=== PATIENT | male | born 1985 | race Caucasian/White ===

== ENCOUNTER 2022-08-18 14:01 | Emergency (ER) | payer OTHER, SELFPAY ==
[2022-08-18 14:11] VITALS: BP 130/110; BP 135/72; PULSE 85; PULSE 91; RESP 16; TEMP 36.9; O2SAT 97; O2SAT 98; BMI 21.6
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
[2022-08-18] MEDS: Diphth,Pertus(ACell),Tet Adult 0.5 ML SYRINGE IM (15:23)
== END 2022-08-18 16:10 | disposition left against medical advice (07) ==
PROVIDERS: Emergency Provider Emergency Medicine
DX: S01.01XA Laceration without foreign body of scalp, initial encounter (principal); V03.00XA Pedestrian on foot injured in collision with car, pick-up truck or van in nontraffic accident, initial encounter; Y93.89 Activity, other specified; Y92.414 Local residential or business street as the place of occurrence of the external cause; Y99.9 Unspecified external cause status
CPT/HCPCS: 12001; 90471; 90715; 99282; 99284

== ENCOUNTER 2025-06-26 17:26 | Inpatient (IN) | payer OTHER, SELFPAY ==
[2025-06-26] VITALS (10 sets, daily range): BP systolic 104–142; BP diastolic 60–100; PULSE 73–125; RESP 16–20; TEMP 37.9–39; O2SAT 95–97; BMI 19.5
--- NOTE | ~2025-06-26 | XR_ITS ---
CLINICAL HISTORY: infection Left tibia fibula two views Comparison: None provided Findings: No acute fracture or dislocation identified. No acute focal bony abnormality. No radiopaque foreign body noted. Impression: No acute bony abnormality This document has been electronically signed by: Alfredito Gomez MD on 06/26/2025 20:00:43
--- NOTE | ~2025-06-26 | CT_ITS ---
CLINICAL HISTORY: evaluation for nec. fascitis CT left lower leg with contrast Comparison: None provided Findings: No acute fracture or dislocation identified. Diffuse circumferential subcutaneous edema. No soft tissue emphysema is identified. Intermuscular edema in posterior distal thigh. Heterogeneous calf musculature with intramuscular edema. Etiology of findings is indeterminate. No fluid collections are noted. No radiopaque foreign body noted. Impression: Indeterminate subcutaneous edema without fluid collection Indeterminate intramuscular and intermuscular edema and stranding Findings are nonspecific as above No fluid collection or bony abnormality This document has been electronically signed by: Alfredito Gomez MD on 06/26/2025 22:09:40
--- NOTE | ~2025-06-26 | CT_ITS ---
CLINICAL HISTORY: evaluation for deep space infection --- Additional Notes or Special Instructions: this needs to be STAT for reading CT left lower leg with contrast Comparison: Same date Findings: Subcutaneous edema is unchanged from prior study. Heterogeneous intramuscular edema noted in the calf. Findings are not further assessable by CT. Intramuscular abnormalities are best assessed with MRI. Deep enter edema and enhancement just above and below-knee. Tubular hypodensities along anterior margin of gastrocnemius muscle. Findings are not well assessed on CT. These may represent the deep venous thrombosis on prior ultrasound. Impression: No change from earlier study If intramuscular abnormality suspected, MRI would be needed This document has been electronically signed by: Alfredito Gomez MD on 06/26/2025 23:43:43
--- NOTE | ~2025-06-26 | US_ITS ---
CLINICAL HISTORY: leg swelling Left lower extremity venous duplex ultrasound Study was performed using color and spectral waveform analysis. Comparison: None Findings: Deep venous thrombosis common femoral, deep femoral and popliteal vein. Thrombus also noted multiple veins below the knee. Nonocclusive common femoral thrombus demonstrates movement. Subcutaneous edema throughout the calf. Impression: Deep venous thrombosis at multiple sites above No common femoral vein thrombus is mobile This document has been electronically signed by: Alfredito Gomez MD on 06/26/2025 20:01:42
--- NOTE | ~2025-06-26 | US_ITS ---
EXAMINATION: US KIDNEY BILATERAL HISTORY: electrolytic abnormalities TECHNIQUE: Real-time grayscale ultrasound imaging of the kidneys was performed and images were reviewed. COMPARISON: There are no prior studies available for comparison. FINDINGS: Right kidney: The right kidney measures 12.1 x 6.2 x 6.6 cm. Renal parenchymal echotexture and thickness are normal. There are no masses. There is no hydronephrosis or renal calculi. Left Kidney: The left kidney measures 11.2 x 6.8 x 6.1 cm. Renal parenchymal echotexture and thickness are normal. There are no masses. There is no hydronephrosis or renal calculi. US/US renal BI IMPRESSION: Unremarkable renal ultrasound. Electronically signed by: Modesto Saez MD 07/03/2025 06:58 AM EDT
--- NOTE | 2025-06-26 18:22 | ED_ITS ---
HPI - General Adult General Chief complaint: General Medical Stated complaint: Swelling/Cant walk Time Seen by Provider: 06/26/25 18:22 Source: patient and EMS Mode of arrival: ambulatory Limitations: no limitations History of Present Illness ED Provider: HPI narrative: This is a 40-year-old male with history of polysubstance use disorder, he injects cocaine and heroin, injects in his legs, he states his left leg became very swollen and has been painful, he states this is going on for the past 5 days and he has had it in the past, he reported history of similar in his right lower extremity in the past 2 weeks and that it resolved but this is something different. He has it does go to methadone clinic takes 85 mg of methadone has not gone for the past 4 days, has had worsening swelling and difficulty ambulating, he also tried to decompress the swelling in his leg and made few incisions of the skin himself. Related Data Home Medications ?Medication ?Instructions ?Recorded ?Confirmed methadone 10 mg/mL oral 85 mg PO DAILY 06/26/2503/17 concentrate (Methadone Intensol) Previous Rx's ?Medication ?Instructions ?Recorded cephalexin 500 mg capsule 500 mg PO Q6H 7 days #28 cap s 08/18/22 Allergies Allergy/AdvReac Type Severity Reaction Status Date / Time sulfamethoxazole (From Allergy Unknown Blister Verified 06/26/25 17:59 Bactrim) trimethoprim (From Bactrim) Allergy Unknown Blister Verified 06/26/25 17:59 Review of Systems 2 Constitutional: Constitutional: Reports as per [facility] Social History Social History Smoked in Last 30 Days: No Use of substances other than those prescribed or required for medical reasons: Yes Substance Use Type: IV Drugs Substance Use Frequency: Chronic Longstanding Advance Directives: No Advance Directives Information Provided: No Physical Exam ED Vital Signs: Vital Signs - 24 hr 06/26/25 17:50 06/26/25 18:54 06/26/25 19:14 Temperature 100.3 F 102.2 F H Pulse Rate 112 H 111 H 102 H Respiratory Rate 20 20 Blood Pressure 139/91 H 142/100 H 137/99 H Pulse Oximetry 97 96 Oxygen Delivery Method Room Air Room Air 06/26/25 19:29 06/26/25 19:44 06/26/25 19:58 Temperature 100.7 F H Pulse Rate 109 H 102 H 102 H Respiratory Rate 16 Blood Pressure 135/93 H 137/89 129/88 Pulse Oximetry 96 Oxygen Delivery Method Room Air 06/26/25 20:21 06/26/25 20:56 06/26/25 21:11 Temperature 100.7 F H Pulse Rate 73 74 Respiratory Rate Blood Pressure 110/67 104/60 Pulse Oximetry Oxygen Delivery Method BMI result Body Mass Index 19.5 Const Other: * Gen: ?Young man, alert oriented, somewhat unkempt * HEENT: PERRLA, EOMI, MMM, * Neck: Supple, no LAD * CV: RRR, no obvious murmurs appreciated * Resp: ?No wheezing rales rhonchi no stridor moving air well * Abd: ?Bowel sounds are present, no tenderness no rebound no rigidity * MSK: Decreased range of motion to left leg he is holding it in the proximally 75 degrees of flexion, edematous, distal pulses palpable posterior tibial and dorsalis pedis, tense calf compartment, thigh compartment soft, cachectic legs * Skin: Some mottling of the skin on the left leg with some chronic stasis changes, on the lateral aspect of the leg from a prior incisions that he has made there is minimal drainage, no subcutaneous emphysema. * Neuro: ?Alert and oriented x3, moving upper and lower extremities symmetrically, no obvious facial asymmetry noted Medications Administered Generic Name Dose Route Start Last Admin Trade Name Freq PRN Reason Stop Dose Admin Heparin Sodium/Sodium Chloride 25,000 unit in 250 mls @ 0 mls/hr 06/26/25 20:30 06/26/25 21:45 Heparin Sodium,Porcine/1/2ns IVCONT 14 units/kg/hr .Q0M NICKI 8.61 mls/hr Protocol Administration Per Protocol Discontinued Medications Generic Name Dose Route Start Last Admin Trade Name Freq PRN Reason Stop Dose Admin Heparin Sodium (Porcine) 4,900 unit 06/26/25 20:30 06/26/25 21:18 Heparin Sodium,Porcine 5,000 Unit/Ml Vial 80 unit/kg (4900 unit) 06/26/25 20:31 4,900 unit IVPUSH Administration ONCE ONE Hydromorphone HCl 1 mg 06/26/25 18:52 06/26/25 19:05 Hydromorphone Hcl 0.5 Mg/0.5 Ml Syringe IVPUSH 06/26/25 18:53 1 mg ONCE ONE Administration Protocol Vancomycin HCl 1,500 mg/ 500 mls @ 333.333 mls/hr 06/26/25 18:46 06/26/25 20:44 Sodium Chloride IV 06/26/25 20:15 Infused POSTOP ONE Infusion Piperacillin Sod/Tazobactam 50 mls @ 100 mls/hr 06/26/25 18:46 06/26/25 19:32 Sod 3.375 gm/ Sodium Chloride IV 06/26/25 19:15 Infused ONCE ONE Infusion Clindamycin Phosphate 900 mg in 50 mls @ 50 mls/hr 06/26/25 18:46 06/26/25 21:56 Cleocin IV 06/26/25 19:45 Infused ONCE ONE Infusion Sodium Chloride 1,845 mls @ 1,845 mls/hr 06/26/25 19:08 06/26/25 20:11 Ns 30 ml/kg infuse over 1 hr (1845 ml) 06/26/25 20:07 Infused IV Infusion .Q1H STA Acetaminophen 1,000 mg in 100 mls @ 400 mls/hr 06/26/25 19:24 06/26/25 19:58 Ofirmev IV 06/26/25 19:38 Infused ONCE ONE Infusion Iohexol 85 ml 06/26/25 22:40 06/26/25 22:41 Iohexol 350 Mg/Ml 100 Ml Infus..Btl IV 06/26/25 22:41 85 ml ONCE ONE Administration Methadone HCl 64 mg 06/26/25 19:45 06/26/25 20:26 Methadone Hcl 20 Mg/2 Ml Oral.Conc PO 06/26/25 19:46 64 mg ONCE ONE Administration Medical Decision Making Medical Decision Making MDM Narrative: 18:30 code sepsis activated, patient is presenting with fever, left lower extremity tense calf compartment, some skin mottling, no obvious subcutaneous emphysema, I have high concern that this is necrotizing fasciitis/pyomyositis, will obtain x-ray, primarily to evaluate for tissue gas, ultrasound to evaluate for presence of DVT as his leg exam can be consistent with phlegmasia cerulea dolens as well or along with soft tissue infection. Pyomyositis is another consideration, arterial insufficiency but his pulses are palpable. He is receiving triple antibiotic coverage including clindamycin for GABS coverage , patient has been updated, will treat his pain, and will keep NPO. 20:30, my established another IV on the patient, he has extensive venous clots we will start heparin. Spoke with Dr. Angela Dixon from vascular surgery he told me that with the infectious etiology he would not de- clot him, but we would recommend heparinization which is already getting done. And Dr. Sampson from surgery is made aware and stated that pt will be followed as a consult. sigm out pedning CT , hospitalist wanted to delay on admission pending CT. 11:38 PM 06/26/2025 (Dr. Theresa Cage, D.O.) CT does not show evidence of abscess. There is definite stranding and edema intramuscularly and subcutaneously. Admission orders placed by Dr. Mosher Differential Diagnosis Differential Diagnoses: The differential diagnosis associated with the presentation includes (See above) Admission/Observation Consideration of admission/observation: Escalation of care including admission/observation considered 2022 Emergency Medicine Coding Guide from [email or web address] on 06/26/2025 All calculations should be rechecked by clinician prior to use RESULT SUMMARY: 5 Estimated Level of Service Problems: High (5) Risk: High (5) Data: Extensive (5) NARRATIVE MDM: This patient's problem complexity is High as patient: may have an acute or chronic illness/injury posing a threat to life or body function. This patient's risk is High due to: overall presentation requiring evaluation for a potentially High-risk process. This patient's data complexity is Extensive due to: -multiple tests ordered/reviewed -independent historian used to support history -independent interpretation of imaging or EKG -discussion of management/testing with external professional INPUTS: Number and Complexity ?> 2 = 5: illness/injury w/life or body threat (b) Risk level ?> 4 = High Tests ordered ?> 3 = >= Tests results reviewed (excluding labs) ?> 3 = >= Prior external notes reviewed ?> 0 = 0 Assessment requiring and independent historian ?> 1 = Yes Independent interpretation of tests ?> 1 = Yes Discussed management/test interpretation w/external professional ?> 1 = Yes Consult Healthcare Provider Lab Data MDM Lab Attestation statement: I reviewed the patient's lab results. 06/26/25 21:08 06/26/25 18:22 Labs: Lab Results 06/26/25 06/26/25 06/26/25 Range/Units 18:22 18:23 18:25 WBC 26.3 H (4.8-10.8) X10*3/uL RBC 4.09 L (4.60-5.80) X10*6/uL Hgb 10.7 L (14.0-18.0) g/dl Hct 32.7 L (42.0-52.0) % MCV 80.0 (80.0-98.0) fL MCH 26.2 L (27.0-33.0) pg MCHC 32.7 (31.0-36.0) g/dl RDW 15.0 (11.0-16.0) % Plt Count 241 (160-400) X10*3/uL MPV 9.0 L (9.4-12.4) fL Immature Gran % (Auto) Cancelled Neut % (Auto) Cancelled Lymph % (Auto) Cancelled [place] % (Auto) Cancelled Eos % (Auto) Cancelled Baso % (Auto) Cancelled Lymph # (Auto) Cancelled [place] # (Auto) Cancelled Eos # (Auto) Cancelled Baso # (Auto) Cancelled Abs Immat Gran (auto) Cancelled Absolute Neuts (auto) Cancelled Absolute Nucleated RBC 0.000 (0.0-0.012) X10*3/uL Nucleated RBC % (auto) 0.0 (0.0-0.2) /100WBC Neutrophils % (Manual) 74 H (45-73) % Band Neutrophils % 17 H (3-5) % Lymphocytes % (Manual) 1 L (20-40) % Monocytes % (Manual) 7 (2-11) % Myelocytes % 1 % Abs Neuts (Manual) 23.9 H (2.0-8.3) X10*3/uL Lymphocytes # (Manual) 0.3 L (1.2-4.9) X10*3/uL Monocytes # (Manual) 1.8 H (0.1-1.2) X10*3/uL Myelocytes # 0.3 X10*/uL Platelet Estimate NORMAL (NORMAL) Plt Morphology Comment NORMAL RBC Morphology NOTED Polychromasia 1+ (0-2) /OIF Tear Drop Cells 1+ (0-2) /OIF Smear Tech's Comments MANUAL DIFF ESR 85 H (0-15) MM/HR PT 15.5 H (10.9-12.4) SEC INR 1.4 H (0.9-1.1) aPTT Heparin Protocol (53-77.9) SEC Sodium 128 L (135-145) mmol/L Potassium 4.8 (3.3-5.1) mmol/L Chloride 93 L (96-108) mmol/L Carbon Dioxide 25 (22-29) mmol/L Anion Gap 15 (12-20) BUN 13 (9-16) mg/dL Creatinine 0.60 (0.5-1.4) mg/dL Estim Creat Clear Calc 145.2 Estimated GFR > 60 Random Glucose 90 (60-115) mg/dL Lactic Acid 1.2 (0.5-2.0) mmol/L Calcium 8.6 (8.4-10.2) mg/dL Total Bilirubin 1.4 H (0.0-1.0) mg/dL AST 80 H (5-37) U/L ALT 48 H (0-40) U/L Alkaline Phosphatase 126 H (39-117) U/L C-Reactive Protein 30.08 H (< or = 0.50) mg/dL Total Protein 6.4 L (6.5-8.0) g/dL Albumin 2.9 L (3.5-5.0) g/dL Urine Color Urine Appearance Urine pH (5.0-9.0) Ur Specific [place] (1.005-1.025) Urine Protein (Neg-Trace) mg/dL Urine Glucose (UA) (Negative) mg/dL Urine Ketones (Negative) mg/dL Urine Blood (Negative) Urine Nitrite (Negative) Ur Leukocyte Esterase (Negative) Urine RBC (0-2) /HPF Urine WBC (0-5) /HPF Ur Squamous Epith Cells (0-2) /HPF Urine Bacteria (None Seen) Hyaline Casts (0-2) /LPF Urine Opiates Screen (Not Detect) Ur Buprenorphine Scrn (Not Detect) ng/mL Ur Oxycodone Screen (Not Detect) ng/mL Urine Methadone Screen (Not Detect) ng/mL Urine Fentanyl Screen (Not Detect) Ur Barbiturates Screen (Not Detect) Ur Phencyclidine Scrn (Not Detect) Ur Amphetamines Screen (Not Detect) U Benzodiazepines Scrn (Not Detect) Urine Cocaine Screen (Not Detect) U Marijuana (THC) Screen (Not Detect) Influenza Type A (PCR) NEGATIVE (Negative) Influenza Type B (PCR) NEGATIVE (Negative) RSV RNA Qual (PCR) NEGATIVE (Negative) SARS-CoV-2 RNA (RT-PCR) NEGATIVE (Negative) 06/26/25 06/26/25 Range/Units 18:56 21:08 WBC 23.7 H (4.8-10.8) X10*3/uL RBC 3.26 L D (4.60-5.80) X10*6/uL Hgb 8.6 L (14.0-18.0) g/dl Hct 25.9 L D (42.0-52.0) % MCV 79.4 L (80.0-98.0) fL MCH 26.4 L (27.0-33.0) pg MCHC 33.2 (31.0-36.0) g/dl RDW 14.9 (11.0-16.0) % Plt Count 197 (160-400) X10*3/uL MPV 9.1 L (9.4-12.4) fL Immature Gran % (Auto) Neut % (Auto) Lymph % (Auto) [place] % (Auto) Eos % (Auto) Baso % (Auto) Lymph # (Auto) [place] # (Auto) Eos # (Auto) Baso # (Auto) Abs Immat Gran (auto) Absolute Neuts (auto) Absolute Nucleated RBC 0.000 (0.0-0.012) X10*3/uL Nucleated RBC % (auto) 0.0 (0.0-0.2) /100WBC Neutrophils % (Manual) (45-73) % Band Neutrophils % (3-5) % Lymphocytes % (Manual) (20-40) % Monocytes % (Manual) (2-11) % Myelocytes % % Abs Neuts (Manual) (2.0-8.3) X10*3/uL Lymphocytes # (Manual) (1.2-4.9) X10*3/uL Monocytes # (Manual) (0.1-1.2) X10*3/uL Myelocytes # X10*/uL Platelet Estimate (NORMAL) Plt Morphology Comment RBC Morphology Polychromasia /OIF Tear Drop Cells /OIF Smear Tech's Comments ESR (0-15) MM/HR PT 16.7 H (10.9-12.4) SEC INR 1.5 H (0.9-1.1) aPTT Heparin Protocol 30.6 L (53-77.9) SEC Sodium (135-145) mmol/L Potassium (3.3-5.1) mmol/L Chloride (96-108) mmol/L Carbon Dioxide (22-29) mmol/L Anion Gap (12-20) BUN (9-16) mg/dL Creatinine (0.5-1.4) mg/dL Estim Creat Clear Calc Estimated GFR Random Glucose (60-115) mg/dL Lactic Acid (0.5-2.0) mmol/L Calcium (8.4-10.2) mg/dL Total Bilirubin (0.0-1.0) mg/dL AST (5-37) U/L ALT (0-40) U/L Alkaline Phosphatase (39-117) U/L C-Reactive Protein (< or = 0.50) mg/dL Total Protein (6.5-8.0) g/dL Albumin (3.5-5.0) g/dL Urine Color Dark Yellow Urine Appearance Clear Urine pH 7.0 (5.0-9.0) Ur Specific [place] 1.025 (1.005-1.025) Urine Protein 30 (1+) H (Neg-Trace) mg/dL Urine Glucose (UA) Negative (Negative) mg/dL Urine Ketones Negative (Negative) mg/dL Urine Blood Negative (Negative) Urine Nitrite Negative (Negative) Ur Leukocyte Esterase Trace H (Negative) Urine RBC 0-2 (0-2) /HPF Urine WBC 0-5 (0-5) /HPF Ur Squamous Epith Cells 0-2 (0-2) /HPF Urine Bacteria None Seen (None Seen) Hyaline Casts 0-2 (0-2) /LPF Urine Opiates Screen POSITIVE H (Not Detect) Ur Buprenorphine Scrn Not Detected (Not Detect) ng/mL Ur Oxycodone Screen Not Detected (Not Detect) ng/mL Urine Methadone Screen Positive H (Not Detect) ng/mL Urine Fentanyl Screen POSITIVE H (Not Detect) Ur Barbiturates Screen Not Detected (Not Detect) Ur Phencyclidine Scrn Not Detected (Not Detect) Ur Amphetamines Screen Not Detected (Not Detect) U Benzodiazepines Scrn Not Detected (Not Detect) Urine Cocaine Screen POSITIVE H (Not Detect) U Marijuana (THC) Screen Not Detected (Not Detect) Influenza Type A (PCR) (Negative) Influenza Type B (PCR) (Negative) RSV RNA Qual (PCR) (Negative) SARS-CoV-2 RNA (RT-PCR) (Negative) Radiology Impression Discussion of test interpretation with radiology: I have reviewed the radiologist's reading. Radiologist Impression: CT left lower leg with contrast Comparison: None provided Findings: No acute fracture or dislocation identified. Diffuse circumferential subcutaneous edema. No soft tissue emphysema is identified. Intermuscular edema in posterior distal thigh. Heterogeneous calf musculature with intramuscular edema. Etiology of findings is indeterminate. No fluid collections are noted. No radiopaque foreign body noted. Impression: Indeterminate subcutaneous edema without fluid collection Indeterminate intramuscular and intermuscular edema and stranding Findings are nonspecific as above No fluid collection or bony abnormality This document has been electronically signed by: Alfredito Gomez MD on 06/26/2025 22:09:40 Chronic Conditions Patient?s care impacted by: Other (IVDA) Social Determinants Patient?s care significantly limited by Social Determinants of Health including: Inadequate housing and Low income Critical Care Time Critical Care Time Critical Care Time: Yes Total Critical Care Time: 75 Attestation: Time is exclusive of separately billable procedures. Time includes: direct patient care, patient reassessment, coordination of patient care, interpretation of data (laboratory data, pulse oximetry, arterial blood gases and chest xrays), review of patient's medical records, medical consultation and documentation of patient care. Procedures excluded from critical care time: central intravenous line placement and electrocardiography. 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
[2025-06-26 18:30] LABS: Hematocrit 32.7 % (42.0-52.0); Hemoglobin 10.7 g/dl (14.0-18.0); Mean Corpuscular HGB Conc 32.7 g/dl (31.0-36.0); Mean Corpuscular Hemoglobin 26.2 pg (27.0-33.0); Mean Corpuscular Volume 80.0 fL (80.0-98.0); NRBC Abs Auto 0.000 X10*3/uL (0.0-0.012); NRBC Pct Auto 0.0 /100WBC (0.0-0.2); Platelet Count 241 X10*3/uL (160-400); Red Blood Count 4.09 X10*6/uL (4.60-5.80); White Blood Count 26.3 X10*3/uL (4.8-10.8)
[2025-06-26 18:38] LABS: INTERNATIONAL NORM RATIO 1.4 (0.9-1.1); Prothrombin Time 15.5 SEC (10.9-12.4)
[2025-06-26 18:44] LABS: Alanine Aminotransferase 48 U/L (0-40); Albumin Level 2.9 g/dL (3.5-5.0); Alkaline Phosphatase 126 U/L (39-117); Anion Gap 15 (12-20); Aspartate Amino Transferase 80 U/L (5-37); Blood Urea Nitrogen 13 mg/dL (9-16); Calcium 8.6 mg/dL (8.4-10.2); Carbon Dioxide 25 mmol/L (22-29); Chloride 93 mmol/L (96-108); Creatinine Clr Calc Pharmacy 145.2; Estimated Glomerular Filt Rate > 60; Potassium 4.8 mmol/L (3.3-5.1); Sodium 128 mmol/L (135-145); Total Protein 6.4 g/dL (6.5-8.0)
[2025-06-26 19:06] LABS: Resp Syncy Virus RNA Qual PCR NEGATIVE (Negative); SARS COV2 PCR INHOUSE NEGATIVE (Negative)
[2025-06-26] MEDS: 0.9 % Sodium Chloride 1,845 ML 1845 ML IV (19:11)
[2025-06-26 19:14] LABS: Appearance Urine Clear; Glucose Urine UA Negative (Negative); PH 7.0 (5.0-9.0); Specific Gravity - Urine 1.025 (1.005-1.025); UMIC TRIGGER UACC YES
[2025-06-26 19:17] LABS: Neutrophils Percent Manual 74 % (45-73)
[2025-06-26 19:21] LABS: Band Neutrophils Percent 17 % (3-5); Lymphocytes Absolute Manual 0.3 X10*3/uL (1.2-4.9); Lymphocytes Percent Manual 1 % (20-40); Monocytes Absolute Manual 1.8 X10*3/uL (0.1-1.2); Monocytes Percent Manual 7 % (2-11); Myelocytes Absolute 0.3 X10*/uL; Myelocytes Percent 1 %; Neutrophils Absolute Manual 23.9 X10*3/uL (2.0-8.3)
[2025-06-26 19:24] LABS: Polychromasia 1+ (0-2) /OIF; RBC Morphology NOTED; Tear Drop Cells 1+ (0-2) /OIF
--- NOTE | 2025-06-26 19:31 | PC.NURSE ---
verified methadone dose with Stacey at [facility] [phone] pt last dosed on 06/22/25 85mg @1135- faxed verification to pharmacy
--- NOTE | 2025-06-26 19:32 | HE.PHANOTE ---
METHADONE Pt last received 85 mg on 06/22/25 @ 1135 at [facility] ([phone]) per Stacey at clinic.
--- NOTE | 2025-06-26 19:58 | PC.NURSE ---
Pt arrives to dept via EMS w/ cc: leg swelling and unable to ambulate., Pt is A&O x4 independent with ADL's at baseline. Pt appears disheveled, and unkempt- pt reports that he is homeless, and lives in [place] with his dog. Pt craven hx of IVDA (on methadone last dose 85mg at [facility] on 06/22/25 @ 1135am) Pt reports swelling began about 5 days ago. today it is at it's worst preventing him from walking- left lower leg w/ 3+ pitting edema, multiple scabbed over areas, as well has open skin areas.Pt reports 10/10 pain at this time, he describes the pain as throbbing tenderness. On arrival to exam room pt found to be febrile at 100.3 orally with a HR of 110 20g IV access was established in right medial bicep- labs and cultures were obtained. pt UTD on tetanus- last dose 2021 MD Beck to bedside, formal sepsis alert initiated at 1856. Abx started Sepsis NS bolus infusing at this time Hydromorphone 1mg given for 10/10 leg pain Methadone verfication faxed to pharmacy- awaiting [facility] verification. Plan for US, XR, CT quality assurance monitor body in place, B/P q15m call hoff within reach plan of care ongoing
--- NOTE | 2025-06-26 20:17 | PC.NURSE ---
spoke with pharmacy- will send clinda
[2025-06-26] MEDS: methADONE HCl 20 MG/2 ML ORAL.CONC 64 MG PO (20:26)
[2025-06-26 21:17] LABS: Hematocrit 25.9 % (42.0-52.0); Hemoglobin 8.6 g/dl (14.0-18.0); Mean Corpuscular HGB Conc 33.2 g/dl (31.0-36.0); Mean Corpuscular Hemoglobin 26.4 pg (27.0-33.0); Mean Corpuscular Volume 79.4 fL (80.0-98.0); NRBC Abs Auto 0.000 X10*3/uL (0.0-0.012); NRBC Pct Auto 0.0 /100WBC (0.0-0.2); Platelet Count 197 X10*3/uL (160-400); Red Blood Count 3.26 X10*6/uL (4.60-5.80); White Blood Count 23.7 X10*3/uL (4.8-10.8)
[2025-06-26 21:23] LABS: INTERNATIONAL NORM RATIO 1.5 (0.9-1.1); Prothrombin Time 16.7 SEC (10.9-12.4)
[2025-06-26 21:26] LABS: PTT Heparin Drip 30.6 SEC (53-77.9)
[2025-06-26] MEDS: Heparin Sodium,Porcine/1/2NS 25,000 UNIT/250 ML IV.SOLN 8.61 UNIT IVCONT (21:45)
--- NOTE | 2025-06-26 21:57 | PC.NURSE ---
Rn started heparin drip with cosigning RN at bedside. No active bleeding on pt. Next scheduled PTT blood draw ordered for 0345. pt is resting comfortably in bed, no complaints at this moment.
--- NOTE | 2025-06-26 22:18 | P.HPHOSP_ITS ---
History of Present Illness Date of Service: 06/26/25 Chief Complaint: Leg pain This has a 40-year-old male with pertinent history of IV polysubstance use disorder who presents to the emergency department for evaluation of left leg pain and swelling. Patient admits he injects cocaine and heroin into his legs. He last used 3 days ago. Patient 1st noticed swelling of left leg 5 days prior to presentation. The swelling has been progressive and associated with pain. States he had a similar swelling of his right lower extremity about 2 weeks ago which self-resolved. He tried to decompress the swelling by making incisions to his left leg. Endorses associated fever and chills. No chest pain, palpitations, shortness of breath, abdominal pain, changes in urinary or bowel habits. In the emergency department, patient was found to be septic with leukocytosis 23.7. Venous duplex with DVT at multiple sites and CT with Review of Systems 2 Constitutional: Constitutional: Reports fatigue, Reports malaise and Reports weakness Cardiovascular: Cardiovascular: Reports no additional cardiovascular complaints Respiratory: Respiratory: Reports no additional respiratory complaints Gastrointestinal: Gastrointestinal: Reports no additional gastrointestinal complaints Genitourinary: Genitourinary: Reports no additional male genitourinary complaints Neurologic: Reports weakness Endocrine: Endocrine: Reports fatigue PMFSH Medical History Polysubstance use disorder Social History Smoked in Last 30 Days: No Use of substances other than those prescribed or required for medical reasons: Yes Substance Use Type: IV Drugs Substance Use Frequency: Chronic Longstanding Advance Directives: No Advance Directives Information Provided: No Meds Allergies Allergy/AdvReac Type Severity Reaction Status Date / Time sulfamethoxazole (From Allergy Unknown Blister Verified 06/26/25 17:59 Bactrim) trimethoprim (From Bactrim) Allergy Unknown Blister Verified 06/26/25 17:59 Active Medications: Current Medications Heparin Sodium (Porcine) (Heparin Sodium,Porcine 5,000 Unit/Ml Vial) 2,500 unit 40 unit/kg (2500 unit) IVPUSH PROTOCOL BOLUS PRN; Protocol PRN Reason: 40 unit/kg - Heparin Protocol Heparin Sodium (Porcine) (Heparin Sodium,Porcine 5,000 Unit/Ml Vial) 4,900 unit 80 unit/kg (4900 unit) IVPUSH PROTOCOL BOLUS PRN; Protocol PRN Reason: 80 unit/kg - Heparin Protocol Heparin Sodium/Sodium Chloride (Heparin Sodium,Porcine/1/2ns) 25,000 unit in 250 mls @ 0 mls/hr IVCONT .Q0M [facility]; Protocol Last Admin: 06/26/25 21:45 Dose: 14 units/kg/hr, 8.61 mls/hr Home Medications ?Medication ?Instructions ?Recorded ?Confirmed ?Last Taken ?Type methadone 10 mg/mL oral 85 mg PO DAILY 06/26/25 0803/1706/22/25 11:35 History concentrate (Methadone Intensol) Physical Exam 2 Vital Signs and Narrative: Vital Signs: Last Vital Signs Temp 100.7 F H 06/26/25 20:21 Pulse 74 06/26/25 21:11 Resp 16 06/26/25 19:58 BP 104/60 06/26/25 21:11 Pulse Ox 96 06/26/25 19:58 O2 Del Method Room Air 06/26/25 19:58 BMI result Body Mass Index 19.5 Const: Other: Middle-aged male lying in bed in no distress Neck supple, no JVD Regular rate and rhythm, S1-S2 heard Regular breath sounds bilaterally, no wheezing or crackles appreciated Abdomen soft nontender, no guarding, no rigidity Patient is awake, alert and oriented to self, place, time and person ; no focal motor deficit Psych: Normal mood Decreased left lower extremity movement due to pain; noted significant swelling and erythema ; track rea in extremity+ Results Labs 06/26/25 21:08 06/26/25 18:22 Labs: Laboratory Results - last 24 hr 06/26/25 06/26/25 06/26/25 18:22 18:23 18:25 MCV 80.0 MCH 26.2 L MCHC 32.7 RDW 15.0 Plt Count 241 MPV 9.0 L Immature Gran % (Auto) Cancelled Neut % (Auto) Cancelled Lymph % (Auto) Cancelled [place] % (Auto) Cancelled Eos % (Auto) Cancelled Baso % (Auto) Cancelled Lymph # (Auto) Cancelled [place] # (Auto) Cancelled Eos # (Auto) Cancelled Baso # (Auto) Cancelled Abs Immat Gran (auto) Cancelled Absolute Neuts (auto) Cancelled Absolute Nucleated RBC 0.000 Nucleated RBC % (auto) 0.0 Neutrophils % (Manual) 74 H Band Neutrophils % 17 H Lymphocytes % (Manual) 1 L Monocytes % (Manual) 7 Myelocytes % 1 Abs Neuts (Manual) 23.9 H Lymphocytes # (Manual) 0.3 L Monocytes # (Manual) 1.8 H Myelocytes # 0.3 Platelet Estimate NORMAL Plt Morphology Comment NORMAL RBC Morphology NOTED Polychromasia 1+ (0-2) Tear Drop Cells 1+ (0-2) Smear Tech's Comments MANUAL DIFF ESR 85 H PT 15.5 H INR 1.4 H aPTT Heparin Protocol Anion Gap 15 Estim Creat Clear Calc 145.2 Estimated GFR > 60 Random Glucose 90 Lactic Acid 1.2 Calcium 8.6 Total Bilirubin 1.4 H AST 80 H ALT 48 H Alkaline Phosphatase 126 H C-Reactive Protein 30.08 H Total Protein 6.4 L Albumin 2.9 L Urine Color Urine Appearance Urine pH Ur Specific [place] Urine Protein Urine Glucose (UA) Urine Ketones Urine Blood Urine Nitrite Ur Leukocyte Esterase Urine RBC Urine WBC Ur Squamous Epith Cells Urine Bacteria Hyaline Casts Influenza Type A (PCR) NEGATIVE Influenza Type B (PCR) NEGATIVE RSV RNA Qual (PCR) NEGATIVE SARS-CoV-2 RNA (RT-PCR) NEGATIVE 06/26/25 06/26/25 18:56 21:08 MCV 79.4 L MCH 26.4 L MCHC 33.2 RDW 14.9 Plt Count 197 MPV 9.1 L Immature Gran % (Auto) Neut % (Auto) Lymph % (Auto) [place] % (Auto) Eos % (Auto) Baso % (Auto) Lymph # (Auto) [place] # (Auto) Eos # (Auto) Baso # (Auto) Abs Immat Gran (auto) Absolute Neuts (auto) Absolute Nucleated RBC 0.000 Nucleated RBC % (auto) 0.0 Neutrophils % (Manual) Band Neutrophils % Lymphocytes % (Manual) Monocytes % (Manual) Myelocytes % Abs Neuts (Manual) Lymphocytes # (Manual) Monocytes # (Manual) Myelocytes # Platelet Estimate Plt Morphology Comment RBC Morphology Polychromasia Tear Drop Cells Smear Tech's Comments ESR PT 16.7 H INR 1.5 H aPTT Heparin Protocol 30.6 L Anion Gap Estim Creat Clear Calc Estimated GFR Random Glucose Lactic Acid Calcium Total Bilirubin AST ALT Alkaline Phosphatase C-Reactive Protein Total Protein Albumin Urine Color Dark Yellow Urine Appearance Clear Urine pH 7.0 Ur Specific [place] 1.025 Urine Protein 30 (1+) H Urine Glucose (UA) Negative Urine Ketones Negative Urine Blood Negative Urine Nitrite Negative Ur Leukocyte Esterase Trace H Urine RBC 0-2 Urine WBC 0-5 Ur Squamous Epith Cells 0-2 Urine Bacteria None Seen Hyaline Casts 0-2 Influenza Type A (PCR) Influenza Type B (PCR) RSV RNA Qual (PCR) SARS-CoV-2 RNA (RT-PCR) Assessment and Plan (1) Sepsis: Status: Acute (2) DVT (deep venous thrombosis): Status: Acute Plan This has a 40-year-old male with pertinent history of IV polysubstance use disorder who presents to the emergency department for evaluation of left leg pain and swelling. #. Acute DVT of left lower extremity with superimposed cellulitis and sepsis: Will admit patient with IV heparin. Vascular surgery was consulted from the ER who recommended anticoagulation with heparin. Initiating empric IV antibiotics. Lactic acid and blood culture obtained. LRINEC score 9, General surgery consulted from the ER. Imaging with subcutaneous, intramuscular, intermuscular edema #. Polysubstance use disorder: Monitor for withdrawals. Consulted Addiction Team. UDS positive for opiates, fentanyl and cocaine. Patient is on methadone #. Microcytic anemia: Obtaining iron panel #. Hyponatremia, likely hypovolemic: Monitor with crystalloid resuscitation #. Elevated liver enzymes due to sepsis Med rec pending DVT prophylaxis: IV heparin Full code Admit as inpatient and will require two night minimum hospital stay for IV antibiotics, IV heparin (as above), which is not possible in a lesser acute setting. Quality Stroke Does the patient have a stroke diagnosis?: No VTE Prior VTE?: No VTE Risk Level:: Medical - moderate - high VTE Device Contraindication: Treatment Not Indicated VTE Drug Contraindication: N/A - Med Ordered
[2025-06-26 22:41] LABS: Cannabinoid Screen Urine Not Detected (Not Detect)
[2025-06-26] MEDS: iohexoL 350 MG/ML 100 ML INFUS..BTL 85 ML IV (22:41)
--- NOTE | 2025-06-26 22:42 | PHA.PROG ---
Admission Date/Time: June 26, 2025 22:17 Indication: Sepsos Weight in k.5 kg Serum Creatinine - Last 168 Hours 06/26/25 18:22 Creatinine 0.60 Estimated CrCl and GFR - Last 168 Hours 06/26/25 18:22 Estim Creat Clear Calc 145.2 Estimated GFR > 60 Vancomycin Loading Dose: 1500mg Current Vancomycin Dosing Regimen: 1,000 q8h Vancomycin Monitoring using AUC goal of 400 - 600 range with trough as surrogate marker: f571, predicted trough 17.3 Date and Time for next Vancomycin Level to be drawn: 06/27 @ 1700 Pharmacist Comments on Vancomycin Plan: Young pt with good renal function, treating aggressively and can slow dosages down once at steady state Vancomycin dosing will take advantage of [employer] as a clinical decision support tool that uses Bayesian modeling to calculate individual patient's pharmacokinetic parameters and forecast the patient's drug concentration time course with the target goal AUC 24 range of 400 - 600 mg/L/hr.
--- NOTE | 2025-06-26 22:59 | PC.NURSE ---
Addendum entered by Esperanza Carr LPN 06/26/25 23:10: * no contraband found during safety search w/[facility] security [employer] Original Note: pt consents to safety search at this time- calm cooperative and pleasant. pt belongings list completed
--- NOTE | 2025-06-27 02:31 | PC.NURSE ---
Admission report for pt complete; hot car charger made aware.
[2025-06-27 02:39] VITALS: BP 114/57; PULSE 82; RESP 14; O2SAT 96
--- NOTE | 2025-06-27 02:53 | PC.NURSE ---
Verbal report given to CHIOMA bragg.
--- NOTE | 2025-06-27 02:56 | PC.NURSE ---
this rn assumed care of pt, pt brought from ed main front at this time. pt has heparin drip at 14U/kg/hr running, dual RN check at this time. pt offers no complaints and is resting in stretcher.
[2025-06-27 03:42] VITALS: BP 101/67; PULSE 72; RESP 18; TEMP 36.7; O2SAT 96
--- NOTE | 2025-06-27 04:10 | PC.NURSE ---
phlebotomy at bedside, pt tough stick at this time, delay in PTT draw.
[2025-06-27 04:17] LABS: Hematocrit 27.0 % (42.0-52.0); Hemoglobin 8.9 g/dl (14.0-18.0); Mean Corpuscular HGB Conc 33.0 g/dl (31.0-36.0); Mean Corpuscular Hemoglobin 26.1 pg (27.0-33.0); Mean Corpuscular Volume 79.2 fL (80.0-98.0); NRBC Abs Auto 0.000 X10*3/uL (0.0-0.012); NRBC Pct Auto 0.0 /100WBC (0.0-0.2); Platelet Count 202 X10*3/uL (160-400); Red Blood Count 3.41 X10*6/uL (4.60-5.80); White Blood Count 19.9 X10*3/uL (4.8-10.8)
[2025-06-27 04:28] LABS: INTERNATIONAL NORM RATIO 1.4 (0.9-1.1); Prothrombin Time 15.6 SEC (10.9-12.4)
[2025-06-27 04:37] LABS: Anion Gap 10 (12-20); Blood Urea Nitrogen 14 mg/dL (9-16); Calcium 7.6 mg/dL (8.4-10.2); Carbon Dioxide 26 mmol/L (22-29); Chloride 102 mmol/L (96-108); Creatinine Clr Calc Pharmacy 142.8; Estimated Glomerular Filt Rate > 60; Iron 12 mcg/dL (45-160); Percent Iron Saturation 13 % (15-50); Potassium 3.6 mmol/L (3.3-5.1); Sodium 134 mmol/L (135-145); Total Iron Binding Capacity 96 mcg/dL (228-428); Unsaturated Iron Binding 84 ug/dL
[2025-06-27 04:45] LABS: PTT Heparin Drip 31.2 SEC (53-77.9)
--- NOTE | 2025-06-27 05:25 | PC.NURSE ---
clindamycin unavailable in the pyxis at this time, will contact pharmacy at 6am, provider aware
[2025-06-27] MEDS: 0.9 % Sodium Chloride Flush 3 ML SYRINGE IVFLUSH ×2 (07:20→16:03)
[2025-06-27 07:54] VITALS: RESP 15
[2025-06-27 07:55] VITALS: BP 113/73; PULSE 85; RESP 15; O2SAT 97
--- NOTE | 2025-06-27 07:57 | P.CONGS_ITS ---
History of Present Illness Consult details Consult date: 06/27/25 <AURY Baxter Last Filed: 06/27/25 08:23> Requesting physician: Mary Mosher <AURY Baxter Last Filed: 06/27/25 08:23> Narrative: 40 year old male with PMH of IV polysubstance use disorder who presents to the ED for evaluation of left leg pain and swelling. He reports this began 6 days ago. Patient admits to injecting cocaine and heroin into his legs, last use 3 days ago. The pain has been progressively getting worse and now he is unable to walk. He reports trying to reduce the swelling himself by making incisions to his left leg. He reports subjective fevers and chills. Work up in the ED included CBC, BMP, LFTs which was significant for a WBC count of 26.3, hyponatremia and mildly elevated LFTs. Left lower extremity US doppler and CT scans showed multiple DVTs in the LLE as well as diffuse circumferential subcutaneous edema without soft tissue emphysema or fluid collections noted. < Adenike Blanco PA-C Last Filed: 06/27/25 08:23> Review of Systems 2 ENT: Denies dizziness <AURY Baxter Last Filed: 06/27/25 08:23> Cardiovascular: Cardiovascular: Denies chest pain and Denies dyspnea < AURY Baxter Last Filed: 06/27/25 08:23> Respiratory: Respiratory: Denies dyspnea <AURY Baxter Last Filed: 06/27/25 08:23> Gastrointestinal: Gastrointestinal: Reports nausea and Denies vomiting < AURY Baxter Last Filed: 06/27/25 08:23> Integumentary/Breasts: Skin/Breast: Reports as per HPI <AURY Baxter Last Filed: 06/27/25 08:23> Neurologic: Denies dizziness <AURY Baxter Last Filed: 06/27/25 08:23> PMFSH Past Medical History Medical History: Medical History Polysubstance use disorder <Adenike Blanco PA-C - Last Filed: 06/27/25 08:23> Social History Social History: Social History Patient Tobacco Use Status: Current everyday Tobacco user Smoked in Last 30 Days: No Use of substances other than those prescribed or required for medical reasons: Yes Substance Use Type: IV Drugs Substance Use Frequency: Chronic Longstanding Advance Directives: No Advance Directives Information Provided: No Nutrition Risks: No Nutritional Risk <Adenike Blanco PA-C - Last Filed: 06/27/25 08:23> Meds Allergies/Adverse reactions: Allergies Allergy/AdvReac Type Severity Reaction Status Date / Time sulfamethoxazole (From Allergy Unknown Blister Verified 06/26/25 17:59 Bactrim) trimethoprim (From Bactrim) Allergy Unknown Blister Verified 06/26/25 17:59 <AURY Baxter Last Filed: 06/27/25 08:23> Active Medications: Current Medications Acetaminophen (Acetaminophen 325 Mg Tablet) 650 mg PO Q6H PRN PRN Reason: Pain, Mild 1-3,fever,headache Calcium Carbonate (Calcium Carbonate 750 Mg Tab.Chew) 750 mg PO Q4H PRN PRN Reason: Heartburn Heparin Sodium (Porcine) (Heparin Sodium,Porcine 5,000 Unit/Ml Vial) 2,500 unit 40 unit/kg (2500 unit) IVPUSH PROTOCOL BOLUS PRN; Protocol PRN Reason: 40 unit/kg - Heparin Protocol Heparin Sodium (Porcine) (Heparin Sodium,Porcine 5,000 Unit/Ml Vial) 4,900 unit 80 unit/kg (4900 unit) IVPUSH PROTOCOL BOLUS PRN; Protocol PRN Reason: 80 unit/kg - Heparin Protocol Last Admin: 06/27/25 04:51 Dose: 4,900 unit Hydromorphone HCl (Hydromorphone Hcl 1 Mg/Ml Syringe) 1 mg IVPUSH Q4H PRN; Protocol PRN Reason: Pain, Severe (Pain Scale 7-10) Last Admin: 06/27/25 07:54 Dose: 1 mg Heparin Sodium/Sodium Chloride (Heparin Sodium,Porcine/1/2ns) 25,000 unit in 250 mls @ 0 mls/hr IVCONT .Q0M [facility]; Protocol Last Titration: 06/27/25 04:52 Dose: 18 units/kg/hr, 11.07 mls/hr Vancomycin HCl 1,000 mg/ (Sodium Chloride) 270 mls @ 270 mls/hr IV Q8H [facility] Last Infusion: 06/27/25 03:43 Dose: Infused Piperacillin Sod/Tazobactam (Sod 4.5 gm/ Sodium Chloride) 100 mls @ 200 mls/hr IV Q6H [facility] Last Infusion: 06/27/25 07:50 Dose: Infused Clindamycin Phosphate (Cleocin) 900 mg in 50 mls @ 50 mls/hr IV Q8H [facility] Magnesium Hydroxide (Milk Of Magnesia 30 Ml Oral.Susp) 30 ml PO DAILY PRN PRN Reason: Constipation Melatonin (Melatonin 3 Mg Tablet) 6 mg PO BEDTIME PRN PRN Reason: Insomnia Ondansetron HCl (Ondansetron Hcl 4 Mg/2 Ml Vial) 4 mg IVPUSH Q8H PRN PRN Reason: Nausea and Vomiting Pharmacy Consult (Consult Rx Vancomycin Dosing) 1 each MISCELLANE DAILY PRN PRN Reason: Consult order Sodium Chloride (0.9 % Sodium Chloride Flush 3 Ml Syringe) [facility] Last Admin: 06/27/25 07:20 Dose: 3 ml <Adenike Blanco PA-C - Last Filed: 06/27/25 08:23> Home medications: Home Medications ?Medication ?Instructions ?Recorded ?Confirmed ?Last Taken ?Type methadone 10 mg/mL oral 85 mg PO DAILY 06/26/25 0803/1706/22/25 11:35 History concentrate (Methadone Intensol) <AURY Baxter Last Filed: 06/27/25 08:23> Physical Exam 2 Vital Signs: Vital Signs: Last Vital Signs Temp 98.0 F 06/27/25 03:42 Pulse 85 06/27/25 07:55 Resp 15 06/27/25 07:55 BP 113/73 06/27/25 07:55 Pulse Ox 97 06/27/25 07:55 O2 Del Method Room Air 06/27/25 07:55 BMI result Body Mass Index 19.5 <AURY Baxter Last Filed: 06/27/25 08:23> Const: General: no acute distress and alert <AURY Baxter Last Filed: 06/27/25 08:23> Nutritional Appearance: thin <AURY Baxter Last Filed: 06/27/25 08:23> Resp: Effort & Inspection: normal respiratory effort <AURY Baxter Last Filed: 06/27/25 08:23> Extrem: Other: left leg- very enlarged compared to right with pitting edema of entire lower leg, markedly tender throughout, no palpable fluid collections noted, mild diffuse erythema, multiple scarred areas consistent with injection sites right leg- mild edema of lower aspect, no erythema, multiple scarred areas <AURY Baxter Last Filed: 06/27/25 08:23> Results Labs Result diagrams: 06/27/25 04:10 06/27/25 04:10 <AURY Baxter Last Filed: 06/27/25 08:23> Labs: Abnormal lab results 06/26/25 06/26/25 06/26/25 Range/Units 18:22 18:23 18:25 WBC 26.3 H (4.8-10.8) X10*3/uL RBC 4.09 L (4.60-5.80) X10*6/uL Hgb 10.7 L (14.0-18.0) g/dl Hct 32.7 L (42.0-52.0) % MCV (80.0-98.0) fL MCH 26.2 L (27.0-33.0) pg MPV 9.0 L (9.4-12.4) fL Neutrophils % (Manual) 74 H (45-73) % Band Neutrophils % 17 H (3-5) % Lymphocytes % (Manual) 1 L (20-40) % Abs Neuts (Manual) 23.9 H (2.0-8.3) X10*3/uL Lymphocytes # (Manual) 0.3 L (1.2-4.9) X10*3/uL Monocytes # (Manual) 1.8 H (0.1-1.2) X10*3/uL ESR 85 H (0-15) MM/HR PT 15.5 H (10.9-12.4) SEC INR 1.4 H (0.9-1.1) aPTT Heparin Protocol (53-77.9) SEC Sodium 128 L (135-145) mmol/L Chloride 93 L (96-108) mmol/L Anion Gap (12-20) Random Glucose (60-115) mg/dL Calcium (8.4-10.2) mg/dL Iron (45-160) mcg/dL TIBC (228-428) mcg/dL % Saturation (15-50) % Total Bilirubin 1.4 H (0.0-1.0) mg/dL AST 80 H (5-37) U/L ALT 48 H (0-40) U/L Alkaline Phosphatase 126 H (39-117) U/L C-Reactive Protein 30.08 H (< or = 0.50) mg/dL Total Protein 6.4 L (6.5-8.0) g/dL Albumin 2.9 L (3.5-5.0) g/dL Urine Protein (Neg-Trace) mg/dL Ur Leukocyte Esterase (Negative) Urine Opiates Screen (Not Detect) Urine Methadone Screen (Not Detect) ng/mL Urine Fentanyl Screen (Not Detect) Urine Cocaine Screen (Not Detect) 06/26/25 06/26/25 06/27/25 Range/Units 18:56 21:08 04:10 WBC 23.7 H 19.9 H (4.8-10.8) X10*3/uL RBC 3.26 L D 3.41 L (4.60-5.80) X10*6/uL Hgb 8.6 L 8.9 L (14.0-18.0) g/dl Hct 25.9 L D 27.0 L (42.0-52.0) % MCV 79.4 L 79.2 L (80.0-98.0) fL MCH 26.4 L 26.1 L (27.0-33.0) pg MPV 9.1 L (9.4-12.4) fL Neutrophils % (Manual) (45-73) % Band Neutrophils % (3-5) % Lymphocytes % (Manual) (20-40) % Abs Neuts (Manual) (2.0-8.3) X10*3/uL Lymphocytes # (Manual) (1.2-4.9) X10*3/uL Monocytes # (Manual) (0.1-1.2) X10*3/uL ESR (0-15) MM/HR PT 16.7 H 15.6 H (10.9-12.4) SEC INR 1.5 H 1.4 H (0.9-1.1) aPTT Heparin Protocol 30.6 L 31.2 L (53-77.9) SEC Sodium 134 L (135-145) mmol/L Chloride (96-108) mmol/L Anion Gap 10 L (12-20) Random Glucose 141 H (60-115) mg/dL Calcium 7.6 L D (8.4-10.2) mg/dL Iron 12 L (45-160) mcg/dL TIBC 96 L (228-428) mcg/dL % Saturation 13 L (15-50) % Total Bilirubin (0.0-1.0) mg/dL AST (5-37) U/L ALT (0-40) U/L Alkaline Phosphatase (39-117) U/L C-Reactive Protein (< or = 0.50) mg/dL Total Protein (6.5-8.0) g/dL Albumin (3.5-5.0) g/dL Urine Protein 30 (1+) H (Neg-Trace) mg/dL Ur Leukocyte Esterase Trace H (Negative) Urine Opiates Screen POSITIVE H (Not Detect) Urine Methadone Screen Positive H (Not Detect) ng/mL Urine Fentanyl Screen POSITIVE H (Not Detect) Urine Cocaine Screen POSITIVE H (Not Detect) Short CBC 06/26/25 06/26/25 06/27/25 Range/Units 18:23 21:08 04:10 WBC 26.3 H 23.7 H 19.9 H (4.8-10.8) X10*3/uL Hgb 10.7 L 8.6 L 8.9 L (14.0-18.0) g/dl Hct 32.7 L 25.9 L D 27.0 L (42.0-52.0) % Plt Count 241 197 202 (160-400) X10*3/uL BMP 06/26/25 06/27/25 06/27/25 18:22 04:10 04:10 Sodium 128 L 134 L Potassium 4.8 3.6 D Chloride 93 L 102 Carbon Dioxide 25 26 BUN 13 14 Creatinine 0.60 Cancelled 0.61 Calcium 8.6 7.6 L D Liver Function 06/26/25 Range/Units 18:22 Total Bilirubin 1.4 H (0.0-1.0) mg/dL AST 80 H (5-37) U/L ALT 48 H (0-40) U/L Alkaline Phosphatase 126 H (39-117) U/L Albumin 2.9 L (3.5-5.0) g/dL Urine 06/26/25 Range/Units 18:56 Urine Color Dark Yellow Urine Appearance Clear Urine pH 7.0 (5.0-9.0) Ur Specific [place] 1.025 (1.005-1.025) Urine Protein 30 (1+) H (Neg-Trace) mg/dL Urine Glucose (UA) Negative (Negative) mg/dL All other labs normal. <Adenike Blanco PA-C - Last Filed: 06/27/25 08:23> Imaging Additional studies: imaging and labs reviewed <Adenike Blanco PA-C - Last Filed: 06/27/25 08:23> Assessment and Plan (1) Sepsis: Status: Acute <Adenike Blanco PA-C - Last Filed: 06/27/25 08:23> (2) DVT (deep venous thrombosis): Status: Acute <Adenike Blanco PA-C - Last Filed: 06/27/25 08:23> 40-year-old male with known IV drug abuse, admitted for left lower extremity swelling, and pain Imaging studies showed DVT There is note of soft tissue stranding of the subcutaneous layer consistent with cellulitis on CT No obvious palpable fluid collections No fluid collection seen on imaging Diffuse edema noted of the leg No signs of ischemic process No evidence of soft tissue necrotizing infection No I&D planned at this time IV antibiotics Vascular consult Leg elevation We will follow up Seen and examined independently <Masoud Sampson MD - Last Filed: 06/27/25 11:37> 40 year old male with PMH of IV polysubstance use who reports injecting in b/l LE who presents with pain and swelling of LLE found to have multiple DVTs of left leg and diffuse, extensive soft tissue stranding suggestive of cellulitis. On exam, he has significant edema however there are no palpable fluctuant collections and currently nothing to drain. WBC is improving. Cont IV abx, elevation of left lower extremity and vascular consult for DVTs. Will continue to follow. <Adenike Blanco PA-C - Last Filed: 06/27/25 08:23> Procedures Date of Service Date of Service: 06/27/25 <Adenike Blanco PA-C - Last Filed: 06/27/25 08:23> 06/27/25 <Masoud Sampson MD - Last Filed: 06/27/25 11:37>
[2025-06-27 09:04] LABS: MANUAL DIFF FLAG NO
--- NOTE | 2025-06-27 09:04 | PHA.MEDREC ---
Pharmacy Consult ? Medication Reconciliation Pharmacy has completed the medication reconciliation. Spoke with pt to confirm he is not on any medications.
[2025-06-27 09:16] LABS: Imm Gran Abs Auto 0.38 X10*3/uL (0.00-0.03); Imm Gran Pct Auto 1.9 % (0.0-0.4); Lymphocytes Absolute Auto 0.8 X10*3/uL (1.2-4.9)
--- NOTE | 2025-06-27 11:28 | HO.PM.IMPN ---
Subjective Subjective Date of Service: 06/27/25 Interval History: feels sick Physical Exam Exam: Exam: General: AO X 3, no acute distress, ill appearing Resp: CTA bilateral, no accessory muscles used CVS: S1,S2,RRR GI: soft, non tender, non distended Neuro: motor grossly intact, alert Psych: appropriate affect, appropriate insight LLE 4+ edema Vital Signs: Vital Signs: Last Vital Signs Temp 98.0 F 06/27/25 03:42 Pulse 85 06/27/25 07:55 Resp 15 06/27/25 07:55 BP 113/73 06/27/25 07:55 Pulse Ox 97 06/27/25 07:55 O2 Del Method Room Air 06/27/25 07:55 BMI result Body Mass Index 19.5 Objective Data Active Medications Acetaminophen (Acetaminophen 325 Mg Tablet) 650 mg PO Q6H PRN PRN Reason: Pain, Mild 1-3,fever,headache Calcium Carbonate (Calcium Carbonate 750 Mg Tab.Chew) 750 mg PO Q4H PRN PRN Reason: Heartburn Heparin Sodium (Porcine) (Heparin Sodium,Porcine 5,000 Unit/Ml Vial) 2,500 unit 40 unit/kg (2500 unit) IVPUSH PROTOCOL BOLUS PRN; Protocol PRN Reason: 40 unit/kg - Heparin Protocol Heparin Sodium (Porcine) (Heparin Sodium,Porcine 5,000 Unit/Ml Vial) 4,900 unit 80 unit/kg (4900 unit) IVPUSH PROTOCOL BOLUS PRN; Protocol PRN Reason: 80 unit/kg - Heparin Protocol Last Admin: 06/27/25 04:51 Dose: 4,900 unit Documented By: VICK Hydromorphone HCl (Hydromorphone Hcl 1 Mg/Ml Syringe) 1 mg IVPUSH Q4H PRN; Protocol PRN Reason: Pain, Severe (Pain Scale 7-10) Last Admin: 06/27/25 07:54 Dose: 1 mg Documented By: TYRA Heparin Sodium/Sodium Chloride (Heparin Sodium,Porcine/1/2ns) 25,000 unit in 250 mls @ 0 mls/hr IVCONT .Q0M [facility]; Protocol Last Titration: 06/27/25 04:52 Dose: 18 units/kg/hr, 11.07 mls/hr Documented By: VICK Co-signed By: MEG Vancomycin HCl 1,000 mg/ (Sodium Chloride) 270 mls @ 270 mls/hr IV Q8H [facility] Last Infusion: 06/27/25 03:43 Dose: Infused Documented By: HA Piperacillin Sod/Tazobactam (Sod 4.5 gm/ Sodium Chloride) 100 mls @ 200 mls/hr IV Q6H [facility] Last Infusion: 06/27/25 07:50 Dose: Infused Documented By: TYRA Clindamycin Phosphate (Cleocin) 900 mg in 50 mls @ 50 mls/hr IV Q8H [facility] Last Infusion: 06/27/25 09:10 Dose: Infused Documented By: TYRA Magnesium Hydroxide (Milk Of Magnesia 30 Ml Oral.Susp) 30 ml PO DAILY PRN PRN Reason: Constipation Melatonin (Melatonin 3 Mg Tablet) 6 mg PO BEDTIME PRN PRN Reason: Insomnia Ondansetron HCl (Ondansetron Hcl 4 Mg/2 Ml Vial) 4 mg IVPUSH Q8H PRN PRN Reason: Nausea and Vomiting Pharmacy Consult (Consult Rx Vancomycin Dosing) 1 each MISCELLANE DAILY PRN PRN Reason: Consult order Sodium Chloride (0.9 % Sodium Chloride Flush 3 Ml Syringe) 3 ml IVFLUSH QSHIFT [facility] Last Admin: 06/27/25 07:20 Dose: 3 ml Documented By: MARVIN Labs 06/27/25 04:10 06/27/25 04:10 Labs: Laboratory Results - last 24 hr 06/26/25 06/26/25 06/26/25 18:22 18:23 18:25 MCV 80.0 MCH 26.2 L MCHC 32.7 RDW 15.0 Plt Count 241 MPV 9.0 L Immature Gran % (Auto) Cancelled Neut % (Auto) Cancelled Lymph % (Auto) Cancelled [place] % (Auto) Cancelled Eos % (Auto) Cancelled Baso % (Auto) Cancelled Lymph # (Auto) Cancelled [place] # (Auto) Cancelled Eos # (Auto) Cancelled Baso # (Auto) Cancelled Abs Immat Gran (auto) Cancelled Absolute Neuts (auto) Cancelled Absolute Nucleated RBC 0.000 Nucleated RBC % (auto) 0.0 Neutrophils % (Manual) 74 H Band Neutrophils % 17 H Lymphocytes % (Manual) 1 L Monocytes % (Manual) 7 Myelocytes % 1 Abs Neuts (Manual) 23.9 H Lymphocytes # (Manual) 0.3 L Monocytes # (Manual) 1.8 H Myelocytes # 0.3 Platelet Estimate NORMAL Plt Morphology Comment NORMAL RBC Morphology NOTED Polychromasia 1+ (0-2) Tear Drop Cells 1+ (0-2) Smear Tech's Comments MANUAL DIFF ESR 85 H PT 15.5 H INR 1.4 H aPTT Heparin Protocol Anion Gap 15 Estim Creat Clear Calc 145.2 Estimated GFR > 60 Random Glucose 90 Lactic Acid 1.2 Calcium 8.6 Iron TIBC % Saturation Unsat Iron Binding Total Bilirubin 1.4 H AST 80 H ALT 48 H Alkaline Phosphatase 126 H C-Reactive Protein 30.08 H Total Protein 6.4 L Albumin 2.9 L Urine Color Urine Appearance Urine pH Ur Specific [place] Urine Protein Urine Glucose (UA) Urine Ketones Urine Blood Urine Nitrite Ur Leukocyte Esterase Urine RBC Urine WBC Ur Squamous Epith Cells Urine Bacteria Hyaline Casts Urine Opiates Screen Ur Buprenorphine Scrn Ur Oxycodone Screen Urine Methadone Screen Urine Fentanyl Screen Ur Barbiturates Screen Ur Phencyclidine Scrn Ur Amphetamines Screen U Benzodiazepines Scrn Urine Cocaine Screen U Marijuana (THC) Screen Influenza Type A (PCR) NEGATIVE Influenza Type B (PCR) NEGATIVE RSV RNA Qual (PCR) NEGATIVE SARS-CoV-2 RNA (RT-PCR) NEGATIVE 06/26/25 06/26/25 06/27/25 18:56 21:08 04:10 MCV 79.4 L 79.2 L MCH 26.4 L 26.1 L MCHC 33.2 33.0 RDW 14.9 15.0 Plt Count 197 202 MPV 9.1 L 9.6 Immature Gran % (Auto) 1.9 H Neut % (Auto) 87.2 H Lymph % (Auto) 4.2 L [place] % (Auto) 6.1 Eos % (Auto) 0.3 Baso % (Auto) 0.3 Lymph # (Auto) 0.8 L [place] # (Auto) 1.2 Eos # (Auto) 0.1 Baso # (Auto) 0.1 Abs Immat Gran (auto) 0.38 H Absolute Neuts (auto) 17.2 H Absolute Nucleated RBC 0.000 0.000 Nucleated RBC % (auto) 0.0 0.0 Neutrophils % (Manual) Band Neutrophils % Lymphocytes % (Manual) Monocytes % (Manual) Myelocytes % Abs Neuts (Manual) Lymphocytes # (Manual) Monocytes # (Manual) Myelocytes # Platelet Estimate Plt Morphology Comment RBC Morphology Polychromasia Tear Drop Cells Smear Tech's Comments ESR PT 16.7 H 15.6 H INR 1.5 H 1.4 H aPTT Heparin Protocol 30.6 L 31.2 L Anion Gap 10 L Estim Creat Clear Calc Cancelled Estimated GFR Random Glucose Lactic Acid Calcium Iron TIBC % Saturation Unsat Iron Binding Total Bilirubin AST ALT Alkaline Phosphatase C-Reactive Protein Total Protein Albumin Urine Color Dark Yellow Urine Appearance Clear Urine pH 7.0 Ur Specific [place] 1.025 Urine Protein 30 (1+) H Urine Glucose (UA) Negative Urine Ketones Negative Urine Blood Negative Urine Nitrite Negative Ur Leukocyte Esterase Trace H Urine RBC 0-2 Urine WBC 0-5 Ur Squamous Epith Cells 0-2 Urine Bacteria None Seen Hyaline Casts 0-2 Urine Opiates Screen POSITIVE H Ur Buprenorphine Scrn Not Detected Ur Oxycodone Screen Not Detected Urine Methadone Screen Positive H Urine Fentanyl Screen POSITIVE H Ur Barbiturates Screen Not Detected Ur Phencyclidine Scrn Not Detected Ur Amphetamines Screen Not Detected U Benzodiazepines Scrn Not Detected Urine Cocaine Screen POSITIVE H U Marijuana (THC) Screen Not Detected Influenza Type A (PCR) Influenza Type B (PCR) RSV RNA Qual (PCR) SARS-CoV-2 RNA (RT-PCR) 06/27/25 06/27/25 04:10 04:10 MCV MCH MCHC RDW Plt Count MPV Immature Gran % (Auto) Neut % (Auto) Lymph % (Auto) [place] % (Auto) Eos % (Auto) Baso % (Auto) Lymph # (Auto) [place] # (Auto) Eos # (Auto) Baso # (Auto) Abs Immat Gran (auto) Absolute Neuts (auto) Absolute Nucleated RBC Nucleated RBC % (auto) Neutrophils % (Manual) Band Neutrophils % Lymphocytes % (Manual) Monocytes % (Manual) Myelocytes % Abs Neuts (Manual) Lymphocytes # (Manual) Monocytes # (Manual) Myelocytes # Platelet Estimate Plt Morphology Comment RBC Morphology Polychromasia Tear Drop Cells Smear Tech's Comments ESR PT INR aPTT Heparin Protocol Anion Gap Estim Creat Clear Calc 142.8 Estimated GFR Cancelled > 60 Random Glucose 141 H Lactic Acid Calcium 7.6 L D Iron 12 L TIBC 96 L % Saturation 13 L Unsat Iron Binding 84 Total Bilirubin AST ALT Alkaline Phosphatase C-Reactive Protein Total Protein Albumin Urine Color Urine Appearance Urine pH Ur Specific [place] Urine Protein Urine Glucose (UA) Urine Ketones Urine Blood Urine Nitrite Ur Leukocyte Esterase Urine RBC Urine WBC Ur Squamous Epith Cells Urine Bacteria Hyaline Casts Urine Opiates Screen Ur Buprenorphine Scrn Ur Oxycodone Screen Urine Methadone Screen Urine Fentanyl Screen Ur Barbiturates Screen Ur Phencyclidine Scrn Ur Amphetamines Screen U Benzodiazepines Scrn Urine Cocaine Screen U Marijuana (THC) Screen Influenza Type A (PCR) Influenza Type B (PCR) RSV RNA Qual (PCR) SARS-CoV-2 RNA (RT-PCR) Microbiology Microbiology Results: Microbiology 06/26/25 18:19 Blood Culture - Preliminary Blood - Venous Prelim: GPC Gram Stain only 06/26/25 18:20 Blood Culture - Preliminary Blood - Venous Prelim: GPC Gram Stain only Assessment and Plan (1) Polysubstance use disorder: Status: Acute Plan 40M PMH ivda, polysubstance dependence, presented with left lower extremity swelling and fevers Sepsis (not severe), due to left lower extremity cellulitis and Gram-positive bacteremia due to IV drug use Continue vancomycin, clindamycin, Zosyn Follow up cultures and deescalate Follow up repeat cultures, echo, ID eval Acute left lower extremity DVT of common femoral, deep femoral, popliteal vein Continue IV heparin Polysubstance dependence Addiction eval Full code reason for continued hospitalization:cultures Quality Stroke Does the patient have a stroke diagnosis?: No VTE Prior VTE?: No VTE Risk Level:: Medical - moderate - high VTE Device Contraindication: Treatment Not Indicated VTE Drug Contraindication: N/A - Med Ordered
--- NOTE | 2025-06-27 11:43 | PC.NURSE ---
PTT delayed d/t pt difficult draw. First draw obtained not accepted by lab, phlebotomy at bedside now to obtain re-draw.
[2025-06-27 12:29] LABS: PTT Heparin Drip 29.4 SEC (53-77.9)
--- NOTE | 2025-06-27 12:30 | MHC.CM.PN ---
PT STATES HOMELESS HE GOES TO [facility] AND SERVICES HE HAS A PLACE TO EAT AND SHOWER DC PLAN SELF CARE
[2025-06-27] MEDS: methADONE HCl 20 MG/2 ML ORAL.CONC 75 MG PO (12:33)
--- NOTE | 2025-06-27 13:15 | HO.ADDICT_ITS ---
History of Present Illness Date of Service: 06/27/2025 Chief Complaint: Leg pain Reason for Consult: GÉNESIS Sources of Information: patient interviewed and chart reviewed HPI Narrative: Patient is a 40 year old male with history of opiate use disorder. Presented to [facility] ED reporting left lower leg edema and pain. Found to have DVT and cellulitis with sepsis. Consult requested due to ongoing substance use. Patient seen in room 21 of main ED. He is awake, alert, engaged in interview. He reports a long history of substance use, starting at age 18. Currently using fentanyl IN and smoking crack cocaine. --Recently had been injecting into his legs. Engaged in treatment for OUD with [facility] OTP and methadone dose is 85mg QD He denies any withdrawal sx when seen by this technical writer and editor--recieved methadone around 8pm on 06/26. Reporting leg pain, but overall well managed. He appears comfortable, very thin. No concern for withdrawal Does report treatment history, including several months ago when he was at [facility] Labs reviewed Sodium 134, elevated LFTs No HIV or hepatitis screens available UDS +cocaine, fentanyl and methadone Medical Evaluation Reviewed: Yes Review of Systems Constitutional: Reports as per HPI and Reports no additional constitutional complaints Diagnostics Vital Signs (24Hr): Vital Signs - 24 hr 06/26/25 17:50 06/26/25 18:54 06/26/25 19:14 Temperature 100.3 F 102.2 F H Pulse Rate 112 H 111 H 102 H Respiratory Rate 20 20 Blood Pressure 139/91 H 142/100 H 137/99 H Pulse Oximetry 97 96 Oxygen Delivery Method Room Air Room Air 06/26/25 19:29 06/26/25 19:44 06/26/25 19:58 Temperature 100.7 F H Pulse Rate 109 H 102 H 102 H Respiratory Rate 16 Blood Pressure 135/93 H 137/89 129/88 Pulse Oximetry 96 Oxygen Delivery Method Room Air 06/26/25 20:21 06/26/25 20:56 06/26/25 21:11 Temperature 100.7 F H Pulse Rate 73 74 Respiratory Rate Blood Pressure 110/67 104/60 Pulse Oximetry Oxygen Delivery Method 06/27/25 02:39 06/27/25 03:42 06/27/25 07:54 Temperature 98.0 F Pulse Rate 82 72 Respiratory Rate 14 18 15 Blood Pressure 114/57 L 101/67 Pulse Oximetry 96 96 Oxygen Delivery Method Room Air Room Air 06/27/25 07:55 Temperature Pulse Rate 85 Respiratory Rate 15 Blood Pressure 113/73 Pulse Oximetry 97 Oxygen Delivery Method Room Air BMI result Body Mass Index 19.5 Labs 06/27/25 04:10 06/27/25 04:10 Labs: Laboratory Results - last 48 hr 06/26/25 06/26/25 06/26/25 18:22 18:23 18:25 WBC 26.3 H RBC 4.09 L Hgb 10.7 L Hct 32.7 L MCV 80.0 MCH 26.2 L MCHC 32.7 RDW 15.0 Plt Count 241 MPV 9.0 L Immature Gran % (Auto) Cancelled Neut % (Auto) Cancelled Lymph % (Auto) Cancelled Wheeler % (Auto) Cancelled Eos % (Auto) Cancelled Baso % (Auto) Cancelled Lymph # (Auto) Cancelled Wheeler # (Auto) Cancelled Eos # (Auto) Cancelled Baso # (Auto) Cancelled Abs Immat Gran (auto) Cancelled Absolute Neuts (auto) Cancelled Absolute Nucleated RBC 0.000 Nucleated RBC % (auto) 0.0 Neutrophils % (Manual) 74 H Band Neutrophils % 17 H Lymphocytes % (Manual) 1 L Monocytes % (Manual) 7 Myelocytes % 1 Abs Neuts (Manual) 23.9 H Lymphocytes # (Manual) 0.3 L Monocytes # (Manual) 1.8 H Myelocytes # 0.3 Platelet Estimate NORMAL Plt Morphology Comment NORMAL RBC Morphology NOTED Polychromasia 1+ (0-2) Tear Drop Cells 1+ (0-2) Smear Tech's Comments MANUAL DIFF ESR 85 H PT 15.5 H INR 1.4 H aPTT Heparin Protocol Sodium 128 L Potassium 4.8 Chloride 93 L Carbon Dioxide 25 Anion Gap 15 BUN 13 Creatinine 0.60 Estim Creat Clear Calc 145.2 Estimated GFR > 60 Random Glucose 90 Lactic Acid 1.2 Calcium 8.6 Iron TIBC % Saturation Unsat Iron Binding Total Bilirubin 1.4 H AST 80 H ALT 48 H Alkaline Phosphatase 126 H C-Reactive Protein 30.08 H Total Protein 6.4 L Albumin 2.9 L Urine Color Urine Appearance Urine pH Ur Specific [place] Urine Protein Urine Glucose (UA) Urine Ketones Urine Blood Urine Nitrite Ur Leukocyte Esterase Urine RBC Urine WBC Ur Squamous Epith Cells Urine Bacteria Hyaline Casts Urine Opiates Screen Ur Buprenorphine Scrn Ur Oxycodone Screen Urine Methadone Screen Urine Fentanyl Screen Ur Barbiturates Screen Ur Phencyclidine Scrn Ur Amphetamines Screen U Benzodiazepines Scrn Urine Cocaine Screen U Marijuana (THC) Screen Influenza Type A (PCR) NEGATIVE Influenza Type B (PCR) NEGATIVE RSV RNA Qual (PCR) NEGATIVE SARS-CoV-2 RNA (RT-PCR) NEGATIVE 06/26/25 06/26/25 06/27/25 18:56 21:08 04:10 WBC 23.7 H 19.9 H RBC 3.26 L D 3.41 L Hgb 8.6 L 8.9 L Hct 25.9 L D 27.0 L MCV 79.4 L 79.2 L MCH 26.4 L 26.1 L MCHC 33.2 33.0 RDW 14.9 15.0 Plt Count 197 202 MPV 9.1 L 9.6 Immature Gran % (Auto) 1.9 H Neut % (Auto) 87.2 H Lymph % (Auto) 4.2 L Wheeler % (Auto) 6.1 Eos % (Auto) 0.3 Baso % (Auto) 0.3 Lymph # (Auto) 0.8 L Wheeler # (Auto) 1.2 Eos # (Auto) 0.1 Baso # (Auto) 0.1 Abs Immat Gran (auto) 0.38 H Absolute Neuts (auto) 17.2 H Absolute Nucleated RBC 0.000 0.000 Nucleated RBC % (auto) 0.0 0.0 Neutrophils % (Manual) Band Neutrophils % Lymphocytes % (Manual) Monocytes % (Manual) Myelocytes % Abs Neuts (Manual) Lymphocytes # (Manual) Monocytes # (Manual) Myelocytes # Platelet Estimate Plt Morphology Comment RBC Morphology Polychromasia Tear Drop Cells Smear Tech's Comments ESR PT 16.7 H 15.6 H INR 1.5 H 1.4 H aPTT Heparin Protocol 30.6 L 31.2 L Sodium 134 L Potassium 3.6 D Chloride 102 Carbon Dioxide 26 Anion Gap 10 L BUN 14 Creatinine Cancelled Estim Creat Clear Calc Estimated GFR Random Glucose Lactic Acid Calcium Iron TIBC % Saturation Unsat Iron Binding Total Bilirubin AST ALT Alkaline Phosphatase C-Reactive Protein Total Protein Albumin Urine Color Dark Yellow Urine Appearance Clear Urine pH 7.0 Ur Specific Gibson[place] 1.025 Urine Protein 30 (1+) H Urine Glucose (UA) Negative Urine Ketones Negative Urine Blood Negative Urine Nitrite Negative Ur Leukocyte Esterase Trace H Urine RBC 0-2 Urine WBC 0-5 Ur Squamous Epith Cells 0-2 Urine Bacteria None Seen Hyaline Casts 0-2 Urine Opiates Screen POSITIVE H Ur Buprenorphine Scrn Not Detected Ur Oxycodone Screen Not Detected Urine Methadone Screen Positive H Urine Fentanyl Screen POSITIVE H Ur Barbiturates Screen Not Detected Ur Phencyclidine Scrn Not Detected Ur Amphetamines Screen Not Detected U Benzodiazepines Scrn Not Detected Urine Cocaine Screen POSITIVE H U Marijuana (THC) Screen Not Detected Influenza Type A (PCR) Influenza Type B (PCR) RSV RNA Qual (PCR) SARS-CoV-2 RNA (RT-PCR) 06/27/25 06/27/25 06/27/25 04:10 04:10 04:10 WBC RBC Hgb Hct MCV MCH MCHC RDW Plt Count MPV Immature Gran % (Auto) Neut % (Auto) Lymph % (Auto) Wheeler % (Auto) Eos % (Auto) Baso % (Auto) Lymph # (Auto) Wheeler # (Auto) Eos # (Auto) Baso # (Auto) Abs Immat Gran (auto) Absolute Neuts (auto) Absolute Nucleated RBC Nucleated RBC % (auto) Neutrophils % (Manual) Band Neutrophils % Lymphocytes % (Manual) Monocytes % (Manual) Myelocytes % Abs Neuts (Manual) Lymphocytes # (Manual) Monocytes # (Manual) Myelocytes # Platelet Estimate Plt Morphology Comment RBC Morphology Polychromasia Tear Drop Cells Smear Tech's Comments ESR PT INR aPTT Heparin Protocol Sodium Potassium Chloride Carbon Dioxide Anion Gap BUN Creatinine 0.61 Estim Creat Clear Calc Cancelled 142.8 Estimated GFR Cancelled > 60 Random Glucose 141 H Lactic Acid Calcium 7.6 L D Iron 12 L TIBC 96 L % Saturation 13 L Unsat Iron Binding 84 Total Bilirubin AST ALT Alkaline Phosphatase C-Reactive Protein Total Protein Albumin Urine Color Urine Appearance Urine pH Ur Specific [place] Urine Protein Urine Glucose (UA) Urine Ketones Urine Blood Urine Nitrite Ur Leukocyte Esterase Urine RBC Urine WBC Ur Squamous Epith Cells Urine Bacteria Hyaline Casts Urine Opiates Screen Ur Buprenorphine Scrn Ur Oxycodone Screen Urine Methadone Screen Urine Fentanyl Screen Ur Barbiturates Screen Ur Phencyclidine Scrn Ur Amphetamines Screen U Benzodiazepines Scrn Urine Cocaine Screen U Marijuana (THC) Screen Influenza Type A (PCR) Influenza Type B (PCR) RSV RNA Qual (PCR) SARS-CoV-2 RNA (RT-PCR) 06/27/25 12:10 WBC RBC Hgb Hct MCV MCH MCHC RDW Plt Count MPV Immature Gran % (Auto) Neut % (Auto) Lymph % (Auto) Wheeler % (Auto) Eos % (Auto) Baso % (Auto) Lymph # (Auto) Wheeler # (Auto) Eos # (Auto) Baso # (Auto) Abs Immat Gran (auto) Absolute Neuts (auto) Absolute Nucleated RBC Nucleated RBC % (auto) Neutrophils % (Manual) Band Neutrophils % Lymphocytes % (Manual) Monocytes % (Manual) Myelocytes % Abs Neuts (Manual) Lymphocytes # (Manual) Monocytes # (Manual) Myelocytes # Platelet Estimate Plt Morphology Comment RBC Morphology Polychromasia Tear Drop Cells Smear Tech's Comments ESR PT INR aPTT Heparin Protocol 29.4 L Sodium Potassium Chloride Carbon Dioxide Anion Gap BUN Creatinine Estim Creat Clear Calc Estimated GFR Random Glucose Lactic Acid Calcium Iron TIBC % Saturation Unsat Iron Binding Total Bilirubin AST ALT Alkaline Phosphatase C-Reactive Protein Total Protein Albumin Urine Color Urine Appearance Urine pH Ur Specific [place] Urine Protein Urine Glucose (UA) Urine Ketones Urine Blood Urine Nitrite Ur Leukocyte Esterase Urine RBC Urine WBC Ur Squamous Epith Cells Urine Bacteria Hyaline Casts Urine Opiates Screen Ur Buprenorphine Scrn Ur Oxycodone Screen Urine Methadone Screen Urine Fentanyl Screen Ur Barbiturates Screen Ur Phencyclidine Scrn Ur Amphetamines Screen U Benzodiazepines Scrn Urine Cocaine Screen U Marijuana (THC) Screen Influenza Type A (PCR) Influenza Type B (PCR) RSV RNA Qual (PCR) SARS-CoV-2 RNA (RT-PCR) Mental Status Exam Mental Status Exam Level of Consciousness: Awake, Appropriate and Alert Patient Behavior: Appropriate and Talkative Affect Description: Calm Speech Pattern: Clear Thought Process: Intact Thought Content: positive for Intact Judgement: Fair Medications Medications Current Medications Acetaminophen (Acetaminophen 325 Mg Tablet) 650 mg PO Q6H PRN PRN Reason: Pain, Mild 1-3,fever,headache Calcium Carbonate (Calcium Carbonate 750 Mg Tab.Chew) 750 mg PO Q4H PRN PRN Reason: Heartburn Heparin Sodium (Porcine) (Heparin Sodium,Porcine 5,000 Unit/Ml Vial) 2,500 unit 40 unit/kg (2500 unit) IVPUSH PROTOCOL BOLUS PRN; Protocol PRN Reason: 40 unit/kg - Heparin Protocol Heparin Sodium (Porcine) (Heparin Sodium,Porcine 5,000 Unit/Ml Vial) 4,900 unit 80 unit/kg (4900 unit) IVPUSH PROTOCOL BOLUS PRN; Protocol PRN Reason: 80 unit/kg - Heparin Protocol Last Admin: 06/27/25 12:48 Dose: 4,900 unit Hydromorphone HCl (Hydromorphone Hcl 1 Mg/Ml Syringe) 1 mg IVPUSH Q4H PRN; Protocol PRN Reason: Pain, Severe (Pain Scale 7-10) Last Admin: 06/27/25 12:10 Dose: 1 mg Heparin Sodium/Sodium Chloride (Heparin Sodium,Porcine/1/2ns) 25,000 unit in 250 mls @ 0 mls/hr IVCONT .Q0M [facility]; Protocol Last Titration: 06/27/25 12:49 Dose: 22 units/kg/hr, 13.53 mls/hr Vancomycin HCl 1,000 mg/ (Sodium Chloride) 270 mls @ 270 mls/hr IV Q8H [facility] Last Admin: 06/27/25 12:28 Dose: 270 mls/hr Piperacillin Sod/Tazobactam (Sod 4.5 gm/ Sodium Chloride) 100 mls @ 200 mls/hr IV Q6H [facility] Last Infusion: 06/27/25 07:50 Dose: Infused Clindamycin Phosphate (Cleocin) 900 mg in 50 mls @ 50 mls/hr IV Q8H [facility] Last Infusion: 06/27/25 09:10 Dose: Infused Magnesium Hydroxide (Milk Of Magnesia 30 Ml Oral.Susp) 30 ml PO DAILY PRN PRN Reason: Constipation Melatonin (Melatonin 3 Mg Tablet) 6 mg PO BEDTIME PRN PRN Reason: Insomnia Ondansetron HCl (Ondansetron Hcl 4 Mg/2 Ml Vial) 4 mg IVPUSH Q8H PRN PRN Reason: Nausea and Vomiting Pharmacy Consult (Consult Rx Vancomycin Dosing) 1 each MISCELLANE DAILY PRN PRN Reason: Consult order Sodium Chloride (0.9 % Sodium Chloride Flush 3 Ml Syringe) 3 ml IVFLUSH QSHIFT [facility] Last Admin: 06/27/25 07:20 Dose: 3 ml Allergies Allergies Allergy/AdvReac Type Severity Reaction Status Date / Time sulfamethoxazole (From Allergy Unknown Blister Verified 06/26/25 17:59 Bactrim) trimethoprim (From Bactrim) Allergy Unknown Blister Verified 06/26/25 17:59 Assessment & Plan Assessment & Plan (1) Opioid use disorder: Status: Acute Code(s): F11.90 - Opioid use, unspecified, uncomplicated Assessment and Plan: * methadone 75mg today, back to regular dose of 85mg tomorrow AM ' * Recovery Support RN to follow up and discuss recovery supports --any plan will be dependant upon medical dispo Total time managing care of this patient today _35___ minutes. PMFSH Past Medical History Medical History Polysubstance use disorder Social History Social History Housing: Homeless Do you presently have visiting nurse or other home services: No Patient Tobacco Use Status: Current everyday Tobacco user Tobacco use type: Cigarette Second Hand Smoke Exposure: No Substance Use Type: IV Drugs service: Yes
[2025-06-27 15:35] VITALS: BMI 19.4
[2025-06-27 15:44] VITALS: BP 140/86; PULSE 81; RESP 18; TEMP 35.9; O2SAT 98
--- NOTE | 2025-06-27 18:08 | HE.PHANOTE ---
RE: vanco Level 06/27 came back at 10.3; increased to 1500mg Q8H with predicted trough of 12.7 mg/L, AUC of 573 mg/L. Next level to be drawn 06/28 @1700
[2025-06-27] MEDS: Heparin Sodium,Porcine/1/2NS 25,000 UNIT/250 ML IV.SOLN 13.53 UNIT IVCONT (19:17)
[2025-06-27 19:20] VITALS: BP 145/89; PULSE 88; RESP 18; TEMP 36.3; O2SAT 97
[2025-06-27 19:26] LABS: PTT Heparin Drip 33.7 SEC (53-77.9)
[2025-06-28 02:48] LABS: PTT Heparin Drip 32.5 SEC (53-77.9)
[2025-06-28] MEDS: 0.9 % Sodium Chloride Flush 3 ML SYRINGE IVFLUSH ×4 (02:50→22:39)
[2025-06-28 03:50] VITALS: BP 157/98; PULSE 87; RESP 18; TEMP 36.4; O2SAT 96
--- NOTE | 2025-06-28 07:00 | CA_ITS ---
Transthoracic Echocardiogram Patient (Last, First, Middle): Dyllan Ariza, Gender: Male Date of : 1985 Age: 40 Procedure Date: 06/28/2025 Procedure Type: Transthoracic Echocardiogram Location: S3E Height: 177.8 cm Weight: 61.24 kg BSA: 1.77 m2 Heart Rate: bpm BP: 113 / 73 mmHg Child Day Care Provider: TO Referring MD: Ryan Hayes MD Symptoms: ivda, bacteremia Study Quality: Adequate ECG Rhythm: Sinus Conclusions: - The left ventricular systolic function is mildly decreased. The calculated ejection fraction is 45% by biplane method. - The basal inferior segment is hypokinetic. - No obvious valvular pathology seen on this study. Findings Left Ventricle Normal left ventricular cavity size. There is normal left ventricular wall thickness. The left ventricular systolic function is mildly decreased. The calculated ejection fraction is 45% by biplane method. Diastolic function is normal for age. Wall Motion Rest Echo Findings The basal inferior segment is hypokinetic. Right Ventricle Mildly increased right ventricular cavity size. There is normal right ventricular systolic function. Atria The left atrium is mildly dilated. The right atrium is normal in size. Aortic Valve There is a normal trileaflet aortic valve. There is no aortic valve stenosis. There is trace (trivial) aortic valve regurgitation. Mitral Valve The mitral valve appears normal. There is trace mitral valve regurgitation. There is trace mitral valve stenosis. Pulmonic Valve There is trace pulmonic valve regurgitation. Tricuspid Valve Normal tricuspid valve structure. There is trace tricuspid valve regurgitation. There is no evidence of pulmonary hypertension. Great Vessels The asc aorta is normal in size. Small plaque is seen in the sino tubular ridge. Venous The inferior vena cava is normal in size and collapses greater than 50% with inspiration. Pericardium/Pleural There is no evidence of pericardial effusion. Prior Study Comparison No prior study available for comparison. Recommendations, Care & Conclusions No obvious valvular pathology seen on this study. Measurements 2D Linear Measurements IVSd: 0.81 0.6-0.9/0.6-1.0 cm LVIDd: 5.13 3.9-5.3/4.2-5.9 cm LVIDd Index: 2.90 2.4-3.2/2.2-3.1 cm/m2 LVIDs: 3.34 2.0-3.6 cm LVPWd: 0.80 0.7-1.1 cm LA Diam: 3.70 2.7-3.8/3.0-4.0 cm LAIDs Index: 2.09 1.5-2.3 cm/m2 LV Mass: 178.17 67-162/88-224 g LV Mass Index: 100.66 43-95/49-115 g/m2 LVOT Diam: 2.50 3.0+(-)1.3 cm 2D Systolic Function EF 4C: 48.60 >55% EF 2C: 40.90 >55% EF BiP: 44.80 >55% Mitral Valve MV Pk E: 0.47 MV PK A: 0.40 MV Decel Time: 199.00 E/A: 1.20 E'Lateral: 11.40 E'Medial: 7.29 E/E' Med: 6.40 E/E' Lat: 4.10 PHT: 58.00 MVA PHT: 3.79 Decel Kingsbury: 2.34 Aortic Valve AoV Pk Juan Pablo: 1.32 AoV Mn Juan Pablo: 0.88 AoV VTI: 0.29 AoV Pk Grad: 7.00 Aov Mn Grad: 4.00 LUCITA Cont.VTI: 3.02 LVOT LVOT Pk Juan Pablo: 0.95 LVOT Mn Juan Pablo: 0.61 LVOT VTI: 0.18 LVOT Pk Grad: 4.00 LVOT Mn Grad: 2.00 LVOT Diam: 2.50 LVOT Area: 4.91 Diastolic Function MV Pk E: 0.47 MV Pk A: 0.40 E/A: 1.20 E'Medial: 7.29 E/E' Med: 6.40 E' Laterial: 11.40 E/E' Lat: 4.10 Right Ventricle TAPSE (mm): 26.90 TVS' Juan Pablo: 10.90 Tricuspid Valve TR Pk Juan Pablo: 2.02 TR Pk Grad: 16.00 RA Press: 3.00 RVSP: 19.00 Great Vessels Aorta Sinus of Valsalva: 3.72 2.0-3.5 cm Ao Asc: 3.50 2.1-3.4 cm Updated in Other Vendor System with Status of Final Cecilio Tuttle MD electronically signed on 06/29/2025 10:47:11 AM with status of Final
[2025-06-28 07:20] VITALS: BP 145/92; PULSE 74; RESP 16; TEMP 36.7; O2SAT 96
--- NOTE | 2025-06-28 07:43 | P.PNGS_ITS ---
Subjective Subjective Date of Service: 06/28/25 Interval history: No new complaints No fever Admits to pain in the left leg Physical Exam 2 Vital Signs: Vital Signs: Last Vital Signs Temp 98.0 F 06/28/25 07:20 Pulse 74 06/28/25 07:20 Resp 16 06/28/25 07:20 BP 145/92 H 06/28/25 07:20 Pulse Ox 96 06/28/25 07:20 O2 Del Method Room Air 06/28/25 07:20 BMI result Body Mass Index 19.4 Const: General: comfortable and no acute distress Resp: Effort & Inspection: normal respiratory effort Cardio: Rate: regular rate Extrem: Other: Diffuse left lower leg edema, no fluctuance, no draining wound, no obvious cellulitic changes Objective Data Active Medications Acetaminophen (Acetaminophen 325 Mg Tablet) 650 mg PO Q6H PRN PRN Reason: Pain, Mild 1-3,fever,headache Calcium Carbonate (Calcium Carbonate 750 Mg Tab.Chew) 750 mg PO Q4H PRN PRN Reason: Heartburn Heparin Sodium (Porcine) (Heparin Sodium,Porcine 5,000 Unit/Ml Vial) 2,500 unit 40 unit/kg (2500 unit) IVPUSH PROTOCOL BOLUS PRN; Protocol PRN Reason: 40 unit/kg - Heparin Protocol Heparin Sodium (Porcine) (Heparin Sodium,Porcine 5,000 Unit/Ml Vial) 4,900 unit 80 unit/kg (4900 unit) IVPUSH PROTOCOL BOLUS PRN; Protocol PRN Reason: 80 unit/kg - Heparin Protocol Last Admin: 06/28/25 03:31 Dose: 4,900 unit Documented By: COY Hydromorphone HCl (Hydromorphone Hcl 1 Mg/Ml Syringe) 1 mg IVPUSH Q4H PRN; Protocol PRN Reason: Pain, Severe (Pain Scale 7-10) Last Admin: 06/28/25 07:36 Dose: 1 mg Documented By: INDIO Heparin Sodium/Sodium Chloride (Heparin Sodium,Porcine/1/2ns) 25,000 unit in 250 mls @ 0 mls/hr IVCONT .Q0M [facility]; Protocol Last Titration: 06/28/25 03:27 Dose: 30 units/kg/hr, 18.45 mls/hr Documented By: COY Co-signed By: JESSICA Piperacillin Sod/Tazobactam (Sod 4.5 gm/ Sodium Chloride) 100 mls @ 200 mls/hr IV Q6H [facility] Last Admin: 06/28/25 07:29 Dose: 200 mls/hr Documented By: COY Vancomycin HCl 1,500 mg/ (Sodium Chloride) 500 mls @ 333.333 mls/hr IV Q8H [facility] Last Infusion: 06/28/25 05:05 Dose: Infused Documented By: COY Magnesium Hydroxide (Milk Of Magnesia 30 Ml Oral.Susp) 30 ml PO DAILY PRN PRN Reason: Constipation Melatonin (Melatonin 3 Mg Tablet) 6 mg PO BEDTIME PRN PRN Reason: Insomnia Methadone HCl (Methadone Hcl 20 Mg/2 Ml Oral.Conc) 85 mg PO DAILY@0800 [facility] Ondansetron HCl (Ondansetron Hcl 4 Mg/2 Ml Vial) 4 mg IVPUSH Q8H PRN PRN Reason: Nausea and Vomiting Pharmacy Consult (Consult Rx Vancomycin Dosing) 1 each MISCELLANE DAILY PRN PRN Reason: Consult order Sodium Chloride (0.9 % Sodium Chloride Flush 3 Ml Syringe) 3 ml IVFLUSH QSHIFT [facility] Last Admin: 06/28/25 02:50 Dose: 3 ml Documented By: COY Labs 06/27/25 04:10 06/27/25 04:10 Labs: Laboratory Results - last 24 hr 06/27/25 06/27/25 06/27/25 04:10 12:10 16:58 MCV 79.2 L MCH 26.1 L MCHC 33.0 RDW 15.0 Plt Count 202 MPV 9.6 Immature Gran % (Auto) 1.9 H Neut % (Auto) 87.2 H Lymph % (Auto) 4.2 L Giles % (Auto) 6.1 Eos % (Auto) 0.3 Baso % (Auto) 0.3 Lymph # (Auto) 0.8 L Giles # (Auto) 1.2 Eos # (Auto) 0.1 Baso # (Auto) 0.1 Abs Immat Gran (auto) 0.38 H Absolute Neuts (auto) 17.2 H Absolute Nucleated RBC 0.000 Nucleated RBC % (auto) 0.0 aPTT Heparin Protocol 29.4 L Vancomycin Trough 10.3 06/27/25 06/28/25 18:58 02:10 MCV MCH MCHC RDW Plt Count MPV Immature Gran % (Auto) Neut % (Auto) Lymph % (Auto) Giles % (Auto) Eos % (Auto) Baso % (Auto) Lymph # (Auto) Giles # (Auto) Eos # (Auto) Baso # (Auto) Abs Immat Gran (auto) Absolute Neuts (auto) Absolute Nucleated RBC Nucleated RBC % (auto) aPTT Heparin Protocol 33.7 L 32.5 L Vancomycin Trough Microbiology Microbiology Results: Microbiology 06/26/25 18:19 Blood Culture - Preliminary Blood - Venous Prelim: GPC Gram Stain only 06/26/25 18:20 Blood Culture - Preliminary Blood - Venous Prelim: GPC Gram Stain only Procedures Date of Service Date of Service: 06/28/25 Progress Note: A&P Assessment and plan (1) Leg edema, left: Status: Acute Assessment and Plan: No apparent drainable abscess Significant edema likely combination of DVT, soft tissue inflammation from IV drug abuse I emphasized to him the importance of leg elevation Vascular surgery input Asking for higher dose of pain medications Time Spent With Patient Time: Total time managing care of this patient today ____ minutes. Quality Stroke Does the patient have a stroke diagnosis?: No VTE Prior VTE?: No VTE Risk Level:: Medical - moderate - high VTE Device Contraindication: Treatment Not Indicated VTE Drug Contraindication: N/A - Med Ordered
[2025-06-28] MEDS: Heparin Sodium,Porcine/1/2NS 25,000 UNIT/250 ML IV.SOLN 18.45 UNIT IVCONT (08:34)
[2025-06-28] MEDS: methADONE HCl 20 MG/2 ML ORAL.CONC 85 MG PO (08:36)
[2025-06-28 10:27] LABS: PTT Heparin Drip 32.3 SEC (53-77.9)
[2025-06-28 10:36] LABS: Hematocrit 29.5 % (42.0-52.0); Hemoglobin 9.4 g/dl (14.0-18.0); Mean Corpuscular HGB Conc 31.9 g/dl (31.0-36.0); Mean Corpuscular Hemoglobin 25.5 pg (27.0-33.0); Mean Corpuscular Volume 79.9 fL (80.0-98.0); NRBC Abs Auto 0.000 X10*3/uL (0.0-0.012); NRBC Pct Auto 0.0 /100WBC (0.0-0.2); Platelet Count 195 X10*3/uL (160-400); Red Blood Count 3.69 X10*6/uL (4.60-5.80); White Blood Count 22.3 X10*3/uL (4.8-10.8)
[2025-06-28 10:40] LABS: Anion Gap 10 (12-20); Blood Urea Nitrogen 9 mg/dL (9-16); Calcium 7.7 mg/dL (8.4-10.2); Carbon Dioxide 24 mmol/L (22-29); Chloride 101 mmol/L (96-108); Creatinine Clr Calc Pharmacy 166.8; Estimated Glomerular Filt Rate > 60; Potassium 3.9 mmol/L (3.3-5.1); Sodium 131 mmol/L (135-145)
[2025-06-28 11:08] LABS: HBS Num1 292.69 mIU/mL (0-7.99); HBc Num1 0.39 S/CO (0.00-0.79); HBsAGNum1 0.37 S/CO (0.00-0.99); HIV Num 1 0.08 S/CO (0.00-0.99); Hepatitis A Antibody IgM 0.26 Index (0-0.79); Hepatitis B Surface Antigen Negative (Negative); ~HepC Num1 13.65 S/CO (0.00-0.79); ~Hepatitis A Antibody IgM Nonreactive (Nonreactive); ~Hepatitis B Surface Antibody REACTIVE (Nonreactive); ~Hepatitis C Antibody Reactive (Nonreactive)
[2025-06-28 11:32] VITALS: BP 135/95; PULSE 72; RESP 14; TEMP 36.4; O2SAT 96
[2025-06-28 11:37] VITALS: BMI 19.4
--- NOTE | 2025-06-28 11:54 | MHC.CLN ---
NUTRITION DIET=REGULAR. ADDING ENSURE TID TO PROVIDE 1050 KCALS, 60 G PROTEIN. QUALIFIES MODERATELY MALNOURISHED IN THE CONTEXT OF SOCIAL/BEHAVIORAL CIRCUMSTANCES. MILD DEPLETION OF BODY FAT AND MUSCLE MASS NOTED. CELLULITIS OF LEFT LOWER LEG WITH 4+ EDEMA. FOLLOW FOR PO INTAKE. SEE CLINICAL NUTRITION ASSESSMENT 06/28/25.
--- NOTE | 2025-06-28 12:50 | MHC.CM.PN ---
Patient not medically cleared for dc. CM will continue to follow.
--- NOTE | 2025-06-28 14:06 | HO.PM.IMPN ---
Subjective Subjective Date of Service: 06/28/25 Interval History: strep pyogenous bacteremia dvt Review of Systems has leg pain no fevers Review of Systems: Yes all other systems are reviewed and are negative Physical Exam Exam: Exam: General: AO X 3, no acute distress, ill appearing Resp: air entry fair , no rales or wheezing CVS: S1,S2,RRR GI: soft, non tender, non distended Neuro: motor grossly intact, alert LLE 4+ edema Vital Signs: Vital Signs: Last Vital Signs Temp 97.5 F 06/28/25 11:32 Pulse 72 06/28/25 11:32 Resp 14 06/28/25 11:32 BP 135/95 H 06/28/25 11:32 Pulse Ox 96 06/28/25 11:32 O2 Del Method Room Air 06/28/25 11:32 BMI result Body Mass Index 19.4 Objective Data Active Medications Acetaminophen (Acetaminophen 325 Mg Tablet) 650 mg PO Q6H PRN PRN Reason: Pain, Mild 1-3,fever,headache Calcium Carbonate (Calcium Carbonate 750 Mg Tab.Chew) 750 mg PO Q4H PRN PRN Reason: Heartburn Heparin Sodium (Porcine) (Heparin Sodium,Porcine 5,000 Unit/Ml Vial) 2,500 unit 40 unit/kg (2500 unit) IVPUSH PROTOCOL BOLUS PRN; Protocol PRN Reason: 40 unit/kg - Heparin Protocol Heparin Sodium (Porcine) (Heparin Sodium,Porcine 5,000 Unit/Ml Vial) 4,900 unit 80 unit/kg (4900 unit) IVPUSH PROTOCOL BOLUS PRN; Protocol PRN Reason: 80 unit/kg - Heparin Protocol Last Admin: 06/28/25 10:57 Dose: 4,900 unit Documented By: INDIO Hydromorphone HCl (Hydromorphone Hcl 1 Mg/Ml Syringe) 1.5 mg IVPUSH Q4H PRN; Protocol PRN Reason: Pain, Severe (Pain Scale 7-10) Last Admin: 06/28/25 11:52 Dose: 1.5 mg Documented By: INDIO Heparin Sodium/Sodium Chloride (Heparin Sodium,Porcine/1/2ns) 25,000 unit in 250 mls @ 0 mls/hr IVCONT .Q0M [facility]; Protocol Last Titration: 06/28/25 10:57 Dose: 34 units/kg/hr, 20.91 mls/hr Documented By: INDIO Co-signed By: ZHANNA Piperacillin Sod/Tazobactam (Sod 4.5 gm/ Sodium Chloride) 100 mls @ 200 mls/hr IV Q6H [facility] Last Infusion: 06/28/25 13:23 Dose: Infused Documented By: INDIO Vancomycin HCl 1,500 mg/ (Sodium Chloride) 500 mls @ 333.333 mls/hr IV Q8H [facility] Last Infusion: 06/28/25 12:34 Dose: Infused Documented By: INDOI Magnesium Hydroxide (Milk Of Magnesia 30 Ml Oral.Susp) 30 ml PO DAILY PRN PRN Reason: Constipation Melatonin (Melatonin 3 Mg Tablet) 6 mg PO BEDTIME PRN PRN Reason: Insomnia Methadone HCl (Methadone Hcl 20 Mg/2 Ml Oral.Conc) 85 mg PO DAILY@0800 [facility] Last Admin: 06/28/25 08:36 Dose: 85 mg Documented By: INDIO Co-signed By: TRACEY Ondansetron HCl (Ondansetron Hcl 4 Mg/2 Ml Vial) 4 mg IVPUSH Q8H PRN PRN Reason: Nausea and Vomiting Pharmacy Consult (Consult Rx Vancomycin Dosing) 1 each MISCELLANE DAILY PRN PRN Reason: Consult order Sodium Chloride (0.9 % Sodium Chloride Flush 3 Ml Syringe) 3 ml IVFLUSH QSHIFT [facility] Last Admin: 06/28/25 08:30 Dose: 3 ml Documented By: INDIO Labs 06/28/25 10:08 06/28/25 10:08 Labs: Laboratory Results - last 24 hr 06/27/25 06/27/25 06/28/25 16:58 18:58 02:10 MCV MCH MCHC RDW Plt Count MPV Absolute Nucleated RBC Nucleated RBC % (auto) aPTT Heparin Protocol 33.7 L 32.5 L Anion Gap Estim Creat Clear Calc Estimated GFR Random Glucose Calcium Vancomycin Trough 10.3 Hepatitis A IgM Ab Hep Bs Antigen Hep Bs Antibody Hep B Core Total Ab Hepatitis C Ab (EIA) HIV 1&2 Ab/P24 Ag 4thGn 06/28/25 10:08 MCV 79.9 L MCH 25.5 L MCHC 31.9 RDW 15.6 Plt Count 195 MPV 9.6 Absolute Nucleated RBC 0.000 Nucleated RBC % (auto) 0.0 aPTT Heparin Protocol 32.3 L Anion Gap 10 L Estim Creat Clear Calc 166.8 Estimated GFR > 60 Random Glucose 136 H Calcium 7.7 L Vancomycin Trough Hepatitis A IgM Ab Nonreactive Hep Bs Antigen Negative Hep Bs Antibody REACTIVE Hep B Core Total Ab Nonreactive Hepatitis C Ab (EIA) Reactive H HIV 1&2 Ab/P24 Ag 4thGn Nonreactive Microbiology Microbiology Results: Microbiology 06/26/25 18:19 Blood Culture - Final Blood - Venous Streptococcus pyogenes (Grp A) 06/26/25 18:20 Blood Culture - Final Blood - Venous Streptococcus pyogenes (Grp A) Assessment and Plan (1) DVT (deep venous thrombosis): Status: Acute (2) Leg edema, left: Status: Acute (3) Sepsis: Status: Acute Plan 40M PMH ivda, polysubstance dependence, presented with left lower extremity swelling and fevers Sepsis (not severe), due to left lower extremity cellulitis and strep pyogenous bacteremia in due to IV drug use repeat blood cultures surgery following - No apparent drainable abscess,Significant edema likely combination of DVT, soft tissue inflammation from IV drug abuse. plan: leg elevation ,Continue vancomycin, clindamycin, Zosyn,pain control with iv dilaudid, echo, ID eval Acute left lower extremity DVT of common femoral, deep femoral, popliteal vein Continue IV heparin Polysubstance dependence Addiction eval Full code reason for continued hospitalization:cultures Quality Stroke Does the patient have a stroke diagnosis?: No VTE Prior VTE?: No VTE Risk Level:: Medical - moderate - high VTE Device Contraindication: Treatment Not Indicated VTE Drug Contraindication: N/A - Med Ordered
[2025-06-28 15:17] VITALS: BP 156/98; PULSE 76; RESP 18; TEMP 36.3; O2SAT 98
--- NOTE | 2025-06-28 16:33 | P.CNID_ITS ---
History of Present Illness Data of Consult Service Date: 06/28/25 Requesting physician: Franc Norris Primary Care Provider: None Physician HPI Reason for consult: strep pyogenes bacteremia,left leg pain He presents with weakness and left leg pain and swelling. He has strep pyogenes bacteremia and CT negative. He has problem one week. Review of Systems 2 Review of Systems: Yes all other systems are reviewed and are negative PMFSH Past Medical History Medical History Leg edema, left Polysubstance use disorder Family History Family history: reviewed and not pertinent Social History Social History Housing: Homeless Do you presently have visiting nurse or other home services: No Patient Tobacco Use Status: Current everyday Tobacco user Tobacco use type: Cigarette Second Hand Smoke Exposure: No Substance Use Type: IV Drugs service: Yes Meds Allergies Allergy/AdvReac Type Severity Reaction Status Date / Time sulfamethoxazole (From Allergy Unknown Blister Verified 06/26/25 17:59 Bactrim) trimethoprim (From Bactrim) Allergy Unknown Blister Verified 06/26/25 17:59 Active Medications: Current Medications Acetaminophen (Acetaminophen 325 Mg Tablet) 650 mg PO Q6H PRN PRN Reason: Pain, Mild 1-3,fever,headache Calcium Carbonate (Calcium Carbonate 750 Mg Tab.Chew) 750 mg PO Q4H PRN PRN Reason: Heartburn Ceftriaxone Sodium (Ceftriaxone Sodium 2 Gm Vial) 2 gm IVPUSH Q24H [facility] Heparin Sodium (Porcine) (Heparin Sodium,Porcine 5,000 Unit/Ml Vial) 2,500 unit 40 unit/kg (2500 unit) IVPUSH PROTOCOL BOLUS PRN; Protocol PRN Reason: 40 unit/kg - Heparin Protocol Heparin Sodium (Porcine) (Heparin Sodium,Porcine 5,000 Unit/Ml Vial) 4,900 unit 80 unit/kg (4900 unit) IVPUSH PROTOCOL BOLUS PRN; Protocol PRN Reason: 80 unit/kg - Heparin Protocol Last Admin: 06/28/25 10:57 Dose: 4,900 unit Hydromorphone HCl (Hydromorphone Hcl 1 Mg/Ml Syringe) 1.5 mg IVPUSH Q4H PRN; Protocol PRN Reason: Pain, Severe (Pain Scale 7-10) Last Admin: 06/28/25 11:52 Dose: 1.5 mg Heparin Sodium/Sodium Chloride (Heparin Sodium,Porcine/1/2ns) 25,000 unit in 250 mls @ 0 mls/hr IVCONT .Q0M [facility]; Protocol Last Titration: 06/28/25 10:57 Dose: 34 units/kg/hr, 20.91 mls/hr Clindamycin Phosphate (Cleocin) 900 mg in 50 mls @ 50 mls/hr IV Q8H [facility] Magnesium Hydroxide (Milk Of Magnesia 30 Ml Oral.Susp) 30 ml PO DAILY PRN PRN Reason: Constipation Melatonin (Melatonin 3 Mg Tablet) 6 mg PO BEDTIME PRN PRN Reason: Insomnia Methadone HCl (Methadone Hcl 20 Mg/2 Ml Oral.Conc) 85 mg PO DAILY@0800 [facility] Last Admin: 06/28/25 08:36 Dose: 85 mg Ondansetron HCl (Ondansetron Hcl 4 Mg/2 Ml Vial) 4 mg IVPUSH Q8H PRN PRN Reason: Nausea and Vomiting Pharmacy Consult (Consult Rx Vancomycin Dosing) 1 each MISCELLANE DAILY PRN PRN Reason: Consult order Sodium Chloride (0.9 % Sodium Chloride Flush 3 Ml Syringe) 3 ml IVFLUSH QSHIFT [facility] Last Admin: 06/28/25 08:30 Dose: 3 ml Home Medications ?Medication ?Instructions ?Recorded ?Confirmed ?Last Taken ?Type methadone 10 mg/mL oral 85 mg PO DAILY 06/26/25 08/0 03/1706/22/25 11:35 History concentrate (Methadone Intensol) Physical Exam 2 Vital Signs: Vital Signs: Last Vital Signs Temp 97.4 F 06/28/25 15:17 Pulse 76 06/28/25 15:17 Resp 18 06/28/25 15:17 BP 156/98 H 06/28/25 15:17 Pulse Ox 98 06/28/25 15:17 O2 Del Method Room Air 06/28/25 15:17 BMI result Body Mass Index 19.4 Const: General: cooperative HEENT: Head: Yes normal to inspection Face and sinus: Yes normal facial exam Mouth: Normal oral and palatal mucosa present Teeth and gingiva: d entition normal Eyes: General: appearance normal, both eyes and all related structures P upils: Equal, round and reactive pupils present Resp: Effort & Inspection: normal respiratory effort Cardio: Rate: regular rate Rhythm: regular rhythm GI: Palpation (GI): Soft to palpation and nontender : General: Yes no CVA tenderness Back/Spine/Pelvis: Back: no CVA tenderness Skin: General skin exam: no rashes or lesions noted Neuro: General: moves all extremities Cranial nerves: Yes Equal, round and reactive pupils present Extrem: Other: swelling LLE ,no redness,pulses intact, moves but pain on movement General: Yes normal to inspection Psych: Appearance: grossly normal Results Labs 06/28/25 10:08 06/28/25 10:08 Labs: Short CBC 06/28/25 Range/Units 10:08 WBC 22.3 H (4.8-10.8) X10*3/uL Hgb 9.4 L (14.0-18.0) g/dl Hct 29.5 L (42.0-52.0) % Plt Count 195 (160-400) X10*3/uL BMP 06/28/25 10:08 Sodium 131 L Potassium 3.9 Chloride 101 Carbon Dioxide 24 BUN 9 Creatinine 0.52 Calcium 7.7 L Microbiology Microbiology Results: Microbiology 06/26/25 18:19 Blood - Venous Blood Culture - Final Streptococcus pyogenes (Grp A) 06/26/25 18:20 Blood - Venous Blood Culture - Final Streptococcus pyogenes (Grp A) Assessment and Plan (1) Polysubstance use disorder: Status: Acute (2) Opioid use disorder: Status: Acute (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 He has DVT and evaluate occult malignancy as well if able ?PSA.
[2025-06-28 18:41] LABS: PTT Heparin Drip 47.7 SEC (53-77.9)
[2025-06-28 19:10] VITALS: BP 165/99; PULSE 83; RESP 17; TEMP 36.4; O2SAT 97
[2025-06-28] MEDS: Heparin Sodium,Porcine/1/2NS 25,000 UNIT/250 ML IV.SOLN 22.14 UNIT IVCONT (22:12)
[2025-06-29 01:58] LABS: PTT Heparin Drip 56.0 SEC (53-77.9)
[2025-06-29 03:24] VITALS: BP 149/92; PULSE 75; RESP 17; TEMP 36.7; O2SAT 97
[2025-06-29] MEDS: methADONE HCl 20 MG/2 ML ORAL.CONC 85 MG PO (07:25)
[2025-06-29] MEDS: 0.9 % Sodium Chloride Flush 3 ML SYRINGE IVFLUSH ×3 (07:27→23:23)
[2025-06-29 08:00] VITALS: BP 139/90; PULSE 69; RESP 18; TEMP 36.8; O2SAT 97
--- NOTE | 2025-06-29 08:21 | P.PNGS_ITS ---
Subjective Subjective Date of Service: 06/29/25 Interval history: No new complaints Says he thinks the swelling on his left leg is improving Admits to pain No fever Physical Exam 2 Vital Signs: Vital Signs: Last Vital Signs Temp 98.2 F 06/29/25 08:00 Pulse 69 06/29/25 08:00 Resp 18 06/29/25 08:00 BP 139/90 H 06/29/25 08:00 Pulse Ox 97 06/29/25 08:00 O2 Del Method Room Air 06/29/25 08:00 BMI result Body Mass Index 19.4 Const: Other: Looks well General: comfortable and no acute distress Resp: Effort & Inspection: normal respiratory effort Cardio: Rate: regular rate Extrem: Other: Diffuse lower leg edema, less than yesterday, soft No fluctuance Objective Data Active Medications Acetaminophen (Acetaminophen 325 Mg Tablet) 650 mg PO Q6H PRN PRN Reason: Pain, Mild 1-3,fever,headache Calcium Carbonate (Calcium Carbonate 750 Mg Tab.Chew) 750 mg PO Q4H PRN PRN Reason: Heartburn Ceftriaxone Sodium (Ceftriaxone Sodium 2 Gm Vial) 2 gm IVPUSH Q24H [facility] Last Admin: 06/28/25 16:57 Dose: 2 gm Documented By: INDIO Heparin Sodium (Porcine) (Heparin Sodium,Porcine 5,000 Unit/Ml Vial) 2,500 unit 40 unit/kg (2500 unit) IVPUSH PROTOCOL BOLUS PRN; Protocol PRN Reason: 40 unit/kg - Heparin Protocol Last Admin: 06/28/25 19:25 Dose: 2,500 unit Documented By: JOHN Heparin Sodium (Porcine) (Heparin Sodium,Porcine 5,000 Unit/Ml Vial) 4,900 unit 80 unit/kg (4900 unit) IVPUSH PROTOCOL BOLUS PRN; Protocol PRN Reason: 80 unit/kg - Heparin Protocol Last Admin: 06/28/25 10:57 Dose: 4,900 unit Documented By: INDIO Hydromorphone HCl (Hydromorphone Hcl 1 Mg/Ml Syringe) 1.5 mg IVPUSH Q4H PRN; Protocol PRN Reason: Pain, Severe (Pain Scale 7-10) Last Admin: 06/29/25 04:09 Dose: 1.5 mg Documented By: JOHN Heparin Sodium/Sodium Chloride (Heparin Sodium,Porcine/1/2ns) 25,000 unit in 250 mls @ 0 mls/hr IVCONT .Q0M [facility]; Protocol Last Titration: 06/29/25 02:02 Dose: 36 units/kg/hr, 22.14 mls/hr Documented By: JOHN Co-signed By: JUSTINE Clindamycin Phosphate (Cleocin) 900 mg in 50 mls @ 50 mls/hr IV Q8H [facility] Last Admin: 06/29/25 07:28 Dose: 50 mls/hr Documented By: FEDE Magnesium Hydroxide (Milk Of Magnesia 30 Ml Oral.Susp) 30 ml PO DAILY PRN PRN Reason: Constipation Melatonin (Melatonin 3 Mg Tablet) 6 mg PO BEDTIME PRN PRN Reason: Insomnia Methadone HCl (Methadone Hcl 20 Mg/2 Ml Oral.Conc) 85 mg PO DAILY@0800 [facility] Last Admin: 06/29/25 07:25 Dose: 85 mg Documented By: FEDE Co-signed By: NICOLAS Ondansetron HCl (Ondansetron Hcl 4 Mg/2 Ml Vial) 4 mg IVPUSH Q8H PRN PRN Reason: Nausea and Vomiting Last Admin: 06/29/25 06:32 Dose: 4 mg Documented By: JOHN Sodium Chloride (0.9 % Sodium Chloride Flush 3 Ml Syringe) 3 ml IVFLUSH QSHIFT [facility] Last Admin: 06/29/25 07:27 Dose: 3 ml Documented By: FEDE Labs 06/28/25 10:08 06/28/25 10:08 Labs: Laboratory Results - last 24 hr 06/28/25 06/28/25 06/29/25 10:08 17:56 01:38 MCV 79.9 L MCH 25.5 L MCHC 31.9 RDW 15.6 Plt Count 195 MPV 9.6 Absolute Nucleated RBC 0.000 Nucleated RBC % (auto) 0.0 aPTT Heparin Protocol 32.3 L 47.7 L D 56.0 Anion Gap 10 L Estim Creat Clear Calc 166.8 Estimated GFR > 60 Random Glucose 136 H Calcium 7.7 L Vancomycin Trough 12.9 Hepatitis A IgM Ab Nonreactive Hep Bs Antigen Negative Hep Bs Antibody REACTIVE Hep B Core Total Ab Nonreactive Hepatitis C Ab (EIA) Reactive H HIV 1&2 Ab/P24 Ag 4thGn Nonreactive Microbiology Microbiology Results: Microbiology 06/26/25 18:19 Blood Culture - Final Blood - Venous Streptococcus pyogenes (Grp A) 06/26/25 18:20 Blood Culture - Final Blood - Venous Streptococcus pyogenes (Grp A) Procedures Date of Service Date of Service: 06/29/25 Progress Note: A&P Assessment and plan (1) Leg edema, left: Status: Acute Assessment and Plan: With DVT Leg elevation On anticoagulation No drainable abscesses Continue current care WBC fluctuating, no fever Edema improving Time Spent With Patient Time: Total time managing care of this patient today ____ minutes. Quality Stroke Does the patient have a stroke diagnosis?: No VTE Prior VTE?: No VTE Risk Level:: Medical - moderate - high VTE Device Contraindication: Treatment Not Indicated VTE Drug Contraindication: N/A - Med Ordered
[2025-06-29 08:56] LABS: Prostate Specific Antigen 0.13 ng/mL (<0.05-4.0)
--- NOTE | 2025-06-29 09:31 | PC.NURSE ---
Patient had refused morning lab draw x2. Patient informed that labs are needed for heparin drip and patient ok with lab draw after informing of importance of labs. This nurse called Phlebotomy at 9a after speaking with patient and someone would be sent to collect PTT for the heparin drip. No results have been posted and order does not say collected. This nurse called phlebotomy again and they said that someone would be receiving an urgent message to collect the PTT. The heparin will be updated when lab is collected.
[2025-06-29] MEDS: Heparin Sodium,Porcine/1/2NS 25,000 UNIT/250 ML IV.SOLN 22.14 UNIT IVCONT ×2 (09:42→21:05)
[2025-06-29 10:24] LABS: Hematocrit 30.7 % (42.0-52.0); Hemoglobin 9.8 g/dl (14.0-18.0); Mean Corpuscular HGB Conc 31.9 g/dl (31.0-36.0); Mean Corpuscular Hemoglobin 25.8 pg (27.0-33.0); Mean Corpuscular Volume 80.8 fL (80.0-98.0); NRBC Abs Auto 0.000 X10*3/uL (0.0-0.012); NRBC Pct Auto 0.0 /100WBC (0.0-0.2); Platelet Count 226 X10*3/uL (160-400); Red Blood Count 3.80 X10*6/uL (4.60-5.80); White Blood Count 22.8 X10*3/uL (4.8-10.8)
[2025-06-29 10:34] LABS: PTT Heparin Drip 56.1 SEC (53-77.9)
[2025-06-29 11:31] LABS: Alanine Aminotransferase 30 U/L (0-40); Albumin Level 2.4 g/dL (3.5-5.0); Alkaline Phosphatase 96 U/L (39-117); Anion Gap 12 (12-20); Aspartate Amino Transferase 42 U/L (5-37); Blood Urea Nitrogen 10 mg/dL (9-16); Calcium 8.1 mg/dL (8.4-10.2); Carbon Dioxide 23 mmol/L (22-29); Chloride 101 mmol/L (96-108); Creatinine Clr Calc Pharmacy 163.6; Estimated Glomerular Filt Rate > 60; Potassium 5.0 mmol/L (3.3-5.1); Sodium 131 mmol/L (135-145); Total Protein 6.2 g/dL (6.5-8.0)
--- NOTE | 2025-06-29 11:32 | HO.ADDICTPRO ---
Subjective Subjective Date of Service: 06/29/25 Reason For Visit: Leg pain Interim History: Patient seen in follow up for OUD He is laying bed, awake, alert, engaged in interview. Reports swelling in the leg has improved and has helped with pain overall. Denies any issues with methadone or pain management Verbalizing desire to seek GÉNESIS treatment following hospitalization. Review of Systems Acute medical concerns: Yes Review of Systems Constitutional: Reports as per HPI Mental Status Exam Mental Status Exam Patient Appearance: Appropriate (very thin) Level of Consciousness: Awake and Appropriate Patient Behavior: Appropriate Affect Description: Calm Speech Pattern: Clear Hallucinations: None Thought Content: positive for Intact Judgement: Good Diagnostics Vital Signs (24Hr): Vital Signs - 24 hr 06/28/25 15:17 06/28/25 19:10 06/29/25 03:24 Temperature 97.4 F 97.6 F 98.0 F Pulse Rate 76 83 75 Respiratory Rate 18 17 17 Blood Pressure 156/98 H 165/99 H 149/92 H Pulse Oximetry 98 97 97 Oxygen Delivery Method Room Air Room Air Room Air 06/29/25 08:00 Temperature 98.2 F Pulse Rate 69 Respiratory Rate 18 Blood Pressure 139/90 H Pulse Oximetry 97 Oxygen Delivery Method Room Air BMI result Body Mass Index 19.4 Labs 06/29/25 10:16 06/29/25 10:54 Labs: Laboratory Results - last 48 hr 06/27/25 06/27/25 06/27/25 12:10 16:58 18:58 WBC RBC Hgb Hct MCV MCH MCHC RDW Plt Count MPV Absolute Nucleated RBC Nucleated RBC % (auto) aPTT Heparin Protocol 29.4 L 33.7 L Sodium Potassium Chloride Carbon Dioxide Anion Gap BUN Creatinine Estim Creat Clear Calc Estimated GFR Random Glucose Calcium Total Bilirubin AST ALT Alkaline Phosphatase Total Protein Albumin Prostate Specific Ag Vancomycin Trough 10.3 Hepatitis A IgM Ab Hep Bs Antigen Hep Bs Antibody Hep B Core Total Ab Hepatitis C Ab (EIA) HIV 1&2 Ab/P24 Ag 4thGn 06/28/25 06/28/25 06/28/25 02:10 10:08 17:56 WBC 22.3 H RBC 3.69 L Hgb 9.4 L Hct 29.5 L MCV 79.9 L MCH 25.5 L MCHC 31.9 RDW 15.6 Plt Count 195 MPV 9.6 Absolute Nucleated RBC 0.000 Nucleated RBC % (auto) 0.0 aPTT Heparin Protocol 32.5 L 32.3 L 47.7 L D Sodium 131 L Potassium 3.9 Chloride 101 Carbon Dioxide 24 Anion Gap 10 L BUN 9 Creatinine 0.52 Estim Creat Clear Calc 166.8 Estimated GFR > 60 Random Glucose 136 H Calcium 7.7 L Total Bilirubin AST ALT Alkaline Phosphatase Total Protein Albumin Prostate Specific Ag 0.13 Vancomycin Trough 12.9 Hepatitis A IgM Ab Nonreactive Hep Bs Antigen Negative Hep Bs Antibody REACTIVE Hep B Core Total Ab Nonreactive Hepatitis C Ab (EIA) Reactive H HIV 1&2 Ab/P24 Ag 4thGn Nonreactive 06/29/25 06/29/25 06/29/25 01:38 10:16 10:54 WBC 22.8 H RBC 3.80 L Hgb 9.8 L Hct 30.7 L MCV 80.8 MCH 25.8 L MCHC 31.9 RDW 15.6 Plt Count 226 MPV 9.2 L Absolute Nucleated RBC 0.000 Nucleated RBC % (auto) 0.0 aPTT Heparin Protocol 56.0 56.1 Sodium 131 L Potassium 5.0 D Chloride 101 Carbon Dioxide 23 Anion Gap 12 BUN 10 Creatinine 0.53 Estim Creat Clear Calc 163.6 Estimated GFR > 60 Random Glucose 117 H Calcium 8.1 L Total Bilirubin 0.4 AST 42 H ALT 30 Alkaline Phosphatase 96 Total Protein 6.2 L Albumin 2.4 L Prostate Specific Ag Vancomycin Trough Hepatitis A IgM Ab Hep Bs Antigen Hep Bs Antibody Hep B Core Total Ab Hepatitis C Ab (EIA) HIV 1&2 Ab/P24 Ag 4thGn Medications Medications Current Medications Acetaminophen (Acetaminophen 325 Mg Tablet) 650 mg PO Q6H PRN PRN Reason: Pain, Mild 1-3,fever,headache Calcium Carbonate (Calcium Carbonate 750 Mg Tab.Chew) 750 mg PO Q4H PRN PRN Reason: Heartburn Ceftriaxone Sodium (Ceftriaxone Sodium 2 Gm Vial) 2 gm IVPUSH Q24H [facility] Last Admin: 06/28/25 16:57 Dose: 2 gm Heparin Sodium (Porcine) (Heparin Sodium,Porcine 5,000 Unit/Ml Vial) 2,500 unit 40 unit/kg (2500 unit) IVPUSH PROTOCOL BOLUS PRN; Protocol PRN Reason: 40 unit/kg - Heparin Protocol Last Admin: 06/28/25 19:25 Dose: 2,500 unit Heparin Sodium (Porcine) (Heparin Sodium,Porcine 5,000 Unit/Ml Vial) 4,900 unit 80 unit/kg (4900 unit) IVPUSH PROTOCOL BOLUS PRN; Protocol PRN Reason: 80 unit/kg - Heparin Protocol Last Admin: 06/28/25 10:57 Dose: 4,900 unit Hydromorphone HCl (Hydromorphone Hcl 1 Mg/Ml Syringe) 1.5 mg IVPUSH Q4H PRN; Protocol PRN Reason: Pain, Severe (Pain Scale 7-10) Last Admin: 06/29/25 09:44 Dose: 1.5 mg Heparin Sodium/Sodium Chloride (Heparin Sodium,Porcine/1/2ns) 25,000 unit in 250 mls @ 0 mls/hr IVCONT .Q0M [facility]; Protocol Last Titration: 06/29/25 10:38 Dose: 36 units/kg/hr, 22.14 mls/hr Clindamycin Phosphate (Cleocin) 900 mg in 50 mls @ 50 mls/hr IV Q8H [facility] Last Infusion: 06/29/25 08:39 Dose: Infused Magnesium Hydroxide (Milk Of Magnesia 30 Ml Oral.Susp) 30 ml PO DAILY PRN PRN Reason: Constipation Melatonin (Melatonin 3 Mg Tablet) 6 mg PO BEDTIME PRN PRN Reason: Insomnia Methadone HCl (Methadone Hcl 20 Mg/2 Ml Oral.Conc) 85 mg PO DAILY@0800 [facility] Last Admin: 06/29/25 07:25 Dose: 85 mg Ondansetron HCl (Ondansetron Hcl 4 Mg/2 Ml Vial) 4 mg IVPUSH Q8H PRN PRN Reason: Nausea and Vomiting Last Admin: 06/29/25 06:32 Dose: 4 mg Sodium Chloride (0.9 % Sodium Chloride Flush 3 Ml Syringe) 3 ml IVFLUSH QSHIFT [facility] Last Admin: 06/29/25 07:27 Dose: 3 ml Allergies Allergies Allergy/AdvReac Type Severity Reaction Status Date / Time sulfamethoxazole (From Allergy Unknown Blister Verified 06/26/25 17:59 Bactrim) trimethoprim (From Bactrim) Allergy Unknown Blister Verified 06/26/25 17:59 Assessment & Plan Assessment & Plan (1) Opioid use disorder: Status: Acute Code(s): F11.90 - Opioid use, unspecified, uncomplicated Assessment and Plan: continue methadone at current dose reminded patient that GÉNESIS treatment dependant on dispo medically. Patient verbalized understanding resource recovery engineer to continue checking in during admission Total time managing care of this patient today __15__ minutes.
[2025-06-29 15:53] VITALS: BP 125/88; PULSE 74; RESP 18; TEMP 36.6; O2SAT 97
--- NOTE | 2025-06-29 17:52 | HO.PM.IMPN ---
Subjective Subjective Date of Service: 06/29/25 Interval History: strep pyogenous bacteremia,dvt Review of Systems has leg pain,leg swleling improving no fevers Review of Systems: Yes all other systems are reviewed and are negative Physical Exam Exam: Exam: General: AO X 3, no acute distress, ill appearing Resp: air entry fair , no rales or wheezing CVS: S1,S2,RRR GI: soft, non tender, non distended Neuro: motor grossly intact, alert LLE 3+ edema Vital Signs: Vital Signs: Last Vital Signs Temp 97.9 F 06/29/25 15:53 Pulse 74 06/29/25 15:53 Resp 18 06/29/25 15:53 BP 125/88 06/29/25 15:53 Pulse Ox 97 06/29/25 15:53 O2 Del Method Room Air 06/29/25 15:53 BMI result Body Mass Index 19.4 Objective Data Active Medications Acetaminophen (Acetaminophen 325 Mg Tablet) 650 mg PO Q6H PRN PRN Reason: Pain, Mild 1-3,fever,headache Calcium Carbonate (Calcium Carbonate 750 Mg Tab.Chew) 750 mg PO Q4H PRN PRN Reason: Heartburn Ceftriaxone Sodium (Ceftriaxone Sodium 2 Gm Vial) 2 gm IVPUSH Q24H [facility] Last Admin: 06/29/25 16:25 Dose: 2 gm Documented By: FEDE Heparin Sodium (Porcine) (Heparin Sodium,Porcine 5,000 Unit/Ml Vial) 2,500 unit 40 unit/kg (2500 unit) IVPUSH PROTOCOL BOLUS PRN; Protocol PRN Reason: 40 unit/kg - Heparin Protocol Last Admin: 06/28/25 19:25 Dose: 2,500 unit Documented By: JOHN Heparin Sodium (Porcine) (Heparin Sodium,Porcine 5,000 Unit/Ml Vial) 4,900 unit 80 unit/kg (4900 unit) IVPUSH PROTOCOL BOLUS PRN; Protocol PRN Reason: 80 unit/kg - Heparin Protocol Last Admin: 06/28/25 10:57 Dose: 4,900 unit Documented By: INDIO Hydromorphone HCl (Hydromorphone Hcl 1 Mg/Ml Syringe) 1.5 mg IVPUSH Q4H PRN; Protocol PRN Reason: Pain, Severe (Pain Scale 7-10) Last Admin: 06/29/25 13:43 Dose: 1.5 mg Documented By: FEDE Heparin Sodium/Sodium Chloride (Heparin Sodium,Porcine/1/2ns) 25,000 unit in 250 mls @ 0 mls/hr IVCONT .Q0M [facility]; Protocol Last Titration: 06/29/25 10:38 Dose: 36 units/kg/hr, 22.14 mls/hr Documented By: FEDE Co-signed By: JERRY Clindamycin Phosphate (Cleocin) 900 mg in 50 mls @ 50 mls/hr IV Q8H [facility] Last Infusion: 06/29/25 17:24 Dose: Infused Documented By: FEDE Magnesium Hydroxide (Milk Of Magnesia 30 Ml Oral.Susp) 30 ml PO DAILY PRN PRN Reason: Constipation Melatonin (Melatonin 3 Mg Tablet) 6 mg PO BEDTIME PRN PRN Reason: Insomnia Methadone HCl (Methadone Hcl 20 Mg/2 Ml Oral.Conc) 85 mg PO DAILY@0800 [facility] Last Admin: 06/29/25 07:25 Dose: 85 mg Documented By: FEDE Co-signed By: NICOLAS Ondansetron HCl (Ondansetron Hcl 4 Mg/2 Ml Vial) 4 mg IVPUSH Q8H PRN PRN Reason: Nausea and Vomiting Last Admin: 06/29/25 06:32 Dose: 4 mg Documented By: JOHN Sodium Chloride (0.9 % Sodium Chloride Flush 3 Ml Syringe) 3 ml IVFLUSH QSHIFT [facility] Last Admin: 06/29/25 16:25 Dose: 3 ml Documented By: FEDE Labs 06/29/25 10:16 06/29/25 10:54 Labs: Laboratory Results - last 24 hr 06/28/25 06/28/25 06/29/25 10:08 17:56 01:38 MCV MCH MCHC RDW Plt Count MPV Absolute Nucleated RBC Nucleated RBC % (auto) aPTT Heparin Protocol 47.7 L D 56.0 Anion Gap Estim Creat Clear Calc Estimated GFR Random Glucose Calcium Total Bilirubin AST ALT Alkaline Phosphatase Total Protein Albumin Prostate Specific Ag 0.13 Vancomycin Trough 12.9 06/29/25 06/29/25 10:16 10:54 MCV 80.8 MCH 25.8 L MCHC 31.9 RDW 15.6 Plt Count 226 MPV 9.2 L Absolute Nucleated RBC 0.000 Nucleated RBC % (auto) 0.0 aPTT Heparin Protocol 56.1 Anion Gap 12 Estim Creat Clear Calc 163.6 Estimated GFR > 60 Random Glucose 117 H Calcium 8.1 L Total Bilirubin 0.4 AST 42 H ALT 30 Alkaline Phosphatase 96 Total Protein 6.2 L Albumin 2.4 L Prostate Specific Ag Vancomycin Trough Microbiology Microbiology Results: Microbiology 06/28/25 10:08 Blood Culture - Preliminary Blood - Venous No growth after 24 hours. Assessment and Plan (1) DVT (deep venous thrombosis): Status: Acute (2) Leg edema, left: Status: Acute (3) Sepsis: Status: Acute Plan 40M PMH ivda, polysubstance dependence, presented with left lower extremity swelling and fevers Sepsis (not severe), due to left lower extremity cellulitis and strep pyogenous bacteremia in due to IV drug use repeat blood cultures surgery following - No apparent drainable abscess,Significant edema likely combination of DVT, soft tissue inflammation from IV drug abuse. echo:The left ventricular systolic function is mildly decreased. The calculated ejection fraction is 45% by biplane method. The basal inferior segment is hypokinetic. No obvious valvular pathology seen on this study. plan:leg elevation ,switched to iv ceftriaxone and clindamycin per id,pain control with iv dilaudid. Acute left lower extremity DVT of common femoral, deep femoral, popliteal vein Continue IV heparin Polysubstance dependence:Addiction eval noted. Full code reason for continued hospitalization:cultures Quality Stroke Does the patient have a stroke diagnosis?: No VTE Prior VTE?: No VTE Risk Level:: Medical - moderate - high VTE Device Contraindication: Treatment Not Indicated VTE Drug Contraindication: N/A - Med Ordered
--- NOTE | 2025-06-29 18:05 | HO.WOUND ---
Wound Consult: Initial 40yr old?male admitted to [facility] on 06/26/25- See progress notes and H&P for detailed history.? Wound consult placed for Left Leg cellulitis.? Patient agreeable to assessment and photo documentation.? Open tissue noted to Left Lateral Lower Leg. Left Lower Leg Etiology: ?Open lesions ?Present on Admission Wound Bed: adherent yellow slough Drainage / Odor: xiong drainage noted on bed linen Edges: ? well defined Lisa wound: hyperpigmented swollen tissue ? No Induration, Fluctuance or Warmth noted Pain: pain reported Goals of Treatment: ? Durafiber for moisture management and autolytic debridement Recommendations: 1. Turn and Reposition every 2 hours and as needed for patient comfort.? Use pillows or wedges to support off loading positions. 2. Off Load all bony prominences with use of pillows and heel boots if needed.? Apply Preventative foams where needed. ? 3. Monitor for incontinence and moisture control, use barrier creams when needed for prevention and treatment. 4. Provide adequate and supplemental nutrition.? 5. Order low air loss mattress. 6. When applicable maintain blood glucose levels per Providers order. Left Lower Leg - Cleanse with NS moist gauze, Pat dry.? Apply barrier to periwound, apply Durafiber AG to wound bed, cover with dry gauze, ABd pad and wrap.? Change every other day. Re-consult wound care Nurse for wound deterioration or wound changes.
[2025-06-29 19:47] VITALS: BP 139/88; PULSE 75; RESP 17; TEMP 36.8; O2SAT 97
[2025-06-30 03:25] VITALS: BP 142/93; PULSE 90; RESP 16; TEMP 37; O2SAT 95
[2025-06-30] MEDS: methADONE HCl 20 MG/2 ML ORAL.CONC 85 MG PO (07:40)
[2025-06-30] MEDS: 0.9 % Sodium Chloride Flush 3 ML SYRINGE IVFLUSH ×2 (07:45→16:29)
[2025-06-30 07:46] VITALS: BP 139/89; PULSE 81; RESP 18; TEMP 37; O2SAT 97
[2025-06-30] MEDS: Heparin Sodium,Porcine/1/2NS 25,000 UNIT/250 ML IV.SOLN 22.14 UNIT IVCONT (08:47)
[2025-06-30 09:03] LABS: Hematocrit 34.4 % (42.0-52.0); Hemoglobin 10.7 g/dl (14.0-18.0); Mean Corpuscular HGB Conc 31.1 g/dl (31.0-36.0); Mean Corpuscular Hemoglobin 25.3 pg (27.0-33.0); Mean Corpuscular Volume 81.3 fL (80.0-98.0); NRBC Abs Auto 0.000 X10*3/uL (0.0-0.012); NRBC Pct Auto 0.0 /100WBC (0.0-0.2); Platelet Count 233 X10*3/uL (160-400); Red Blood Count 4.23 X10*6/uL (4.60-5.80); White Blood Count 24.0 X10*3/uL (4.8-10.8)
[2025-06-30 09:17] LABS: Anion Gap 13 (12-20); Blood Urea Nitrogen 14 mg/dL (9-16); Calcium 8.1 mg/dL (8.4-10.2); Carbon Dioxide 24 mmol/L (22-29); Chloride 97 mmol/L (96-108); Creatinine Clr Calc Pharmacy 166.8; Estimated Glomerular Filt Rate > 60; Potassium 5.4 mmol/L (3.3-5.1); Sodium 129 mmol/L (135-145)
[2025-06-30 10:39] LABS: PTT Heparin Drip 36.3 SEC (53-77.9)
--- NOTE | 2025-06-30 13:09 | MHC.CLN ---
F/U DIET=REGULAR. ENSURE TID TO PROVIDES 1050 KCALS, 60 G PROTEIN. QUALIFIES MODERATELY MALNOURISHED IN THE CONTEXT OF SOCIAL/BEHAVIORAL CIRCUMSTANCES. PO INTAKE VARIABLE. CONTINUE TO FOLLOW FOR PO INTAKE.
--- NOTE | 2025-06-30 13:52 | MHC.CM.PN ---
Patient not medically cleared for dc. Awaiting ID eval. SNF's following if senior living IV abx are needed.
[2025-06-30 15:31] VITALS: BP 125/82; PULSE 83; RESP 18; TEMP 36.7; O2SAT 98
--- NOTE | 2025-06-30 16:57 | HO.PM.IMPN ---
Subjective Subjective Date of Service: 06/30/25 Interval History: Hyponatremia/hyperkalemia Review of Systems Leg swelling improving, no fever Review of Systems: Yes all other systems are reviewed and are negative Physical Exam Exam: Exam: General: AO X 3, no acute distress, ill appearing Resp: air entry fair , no rales or wheezing CVS: S1,S2,RRR GI: soft, non tender, non distended Neuro: motor grossly intact, alert LLE 3+ edema Vital Signs: Vital Signs: Last Vital Signs Temp 98.1 F 06/30/25 15:31 Pulse 83 06/30/25 15:31 Resp 18 06/30/25 15:31 BP 125/82 06/30/25 15:31 Pulse Ox 98 06/30/25 15:31 O2 Del Method Room Air 06/30/25 15:31 BMI result Body Mass Index 19.4 Objective Data Active Medications Acetaminophen (Acetaminophen 325 Mg Tablet) 650 mg PO Q6H PRN PRN Reason: Pain, Mild 1-3,fever,headache Calcium Carbonate (Calcium Carbonate 750 Mg Tab.Chew) 750 mg PO Q4H PRN PRN Reason: Heartburn Ceftriaxone Sodium (Ceftriaxone Sodium 2 Gm Vial) 2 gm IVPUSH Q24H [facility] Last Admin: 06/30/25 16:27 Dose: 2 gm Documented By: FEDE Heparin Sodium (Porcine) (Heparin Sodium,Porcine 5,000 Unit/Ml Vial) 2,500 unit 40 unit/kg (2500 unit) IVPUSH PROTOCOL BOLUS PRN; Protocol PRN Reason: 40 unit/kg - Heparin Protocol Last Admin: 06/28/25 19:25 Dose: 2,500 unit Documented By: JOHN Heparin Sodium (Porcine) (Heparin Sodium,Porcine 5,000 Unit/Ml Vial) 4,900 unit 80 unit/kg (4900 unit) IVPUSH PROTOCOL BOLUS PRN; Protocol PRN Reason: 80 unit/kg - Heparin Protocol Last Admin: 06/30/25 10:52 Dose: 4,900 unit Documented By: FEDE Hydromorphone HCl (Hydromorphone Hcl 1 Mg/Ml Syringe) 1 mg IVPUSH Q4H PRN; Protocol PRN Reason: Pain, Severe (Pain Scale 7-10) Last Admin: 06/30/25 16:24 Dose: 1 mg Documented By: FEDE Heparin Sodium/Sodium Chloride (Heparin Sodium,Porcine/1/2ns) 25,000 unit in 250 mls @ 0 mls/hr IVCONT .Q0M [facility]; Protocol Last Titration: 06/30/25 10:53 Dose: 40 units/kg/hr, 24.6 mls/hr Documented By: FEDE Co-signed By: DESTINI Clindamycin Phosphate (Cleocin) 900 mg in 50 mls @ 50 mls/hr IV Q8H [facility] Last Admin: 06/30/25 16:29 Dose: 50 mls/hr Documented By: FEDE Magnesium Hydroxide (Milk Of Magnesia 30 Ml Oral.Susp) 30 ml PO DAILY PRN PRN Reason: Constipation Melatonin (Melatonin 3 Mg Tablet) 6 mg PO BEDTIME PRN PRN Reason: Insomnia Methadone HCl (Methadone Hcl 20 Mg/2 Ml Oral.Conc) 85 mg PO DAILY@0800 [facility] Last Admin: 06/30/25 07:40 Dose: 85 mg Documented By: FEDE Co-signed By: PAUL Ondansetron HCl (Ondansetron Hcl 4 Mg/2 Ml Vial) 4 mg IVPUSH Q8H PRN PRN Reason: Nausea and Vomiting Last Admin: 06/29/25 06:32 Dose: 4 mg Documented By: JOHN Sodium Chloride (0.9 % Sodium Chloride Flush 3 Ml Syringe) 3 ml IVFLUSH QSHIFT [facility] Last Admin: 06/30/25 16:29 Dose: 3 ml Documented By: FEDE Sodium Zirconium Cyclosilicate (Sodium Zirconium Cyclosilicate 5 Gm Powd.Pack) 5 gm PO ONCE ONE Stop: 06/30/25 16:56 Labs 06/30/25 08:09 06/30/25 08:09 Labs: Laboratory Results - last 24 hr 06/30/25 06/30/25 08:09 10:23 MCV 81.3 MCH 25.3 L MCHC 31.1 RDW 15.9 Plt Count 233 MPV 9.6 Absolute Nucleated RBC 0.000 Nucleated RBC % (auto) 0.0 aPTT Heparin Protocol 36.3 L D Anion Gap 13 Estim Creat Clear Calc 166.8 Estimated GFR > 60 Random Glucose 87 Calcium 8.1 L Microbiology Microbiology Results: Microbiology 06/29/25 10:15 Blood Culture - Preliminary Blood - Venous No growth after 24 hours. 06/28/25 10:08 Blood Culture - Preliminary Blood - Venous No growth after 48 hours. Assessment and Plan (1) DVT (deep venous thrombosis): Status: Acute (2) Leg edema, left: Status: Acute (3) Sepsis: Status: Acute Plan 40M PMH ivda, polysubstance dependence, presented with left lower extremity swelling and fevers Sepsis (not severe), due to left lower extremity cellulitis and strep pyogenous bacteremia in due to IV drug use repeat blood cultures -negative @24-48hrs leucocytosis slowly trending up surgery following - No apparent drainable abscess,Significant edema likely combination of DVT, soft tissue inflammation from IV drug abuse. echo:The left ventricular systolic function is mildly decreased. The calculated ejection fraction is 45% by biplane method. The basal inferior segment is hypokinetic. No obvious valvular pathology seen on this study. plan:leg elevation ,switched to iv ceftriaxone and clindamycin per id,pain control with iv dilaudid. mild hyperkalemia: Added p.o. Lokelma Acute left lower extremity DVT of common femoral, deep femoral, popliteal vein Continue IV heparin Polysubstance dependence:Addiction eval noted. Full code reason for continued hospitalization:cultures Quality Stroke Does the patient have a stroke diagnosis?: No VTE Prior VTE?: No VTE Risk Level:: Medical - moderate - high VTE Device Contraindication: Treatment Not Indicated VTE Drug Contraindication: N/A - Med Ordered
[2025-06-30 17:22] LABS: PTT Heparin Drip 70.7 SEC (53-77.9)
[2025-06-30 17:29] LABS: Osmolality, Serum 282 mosm/kg (281-305)
[2025-06-30] MEDS: Heparin Sodium,Porcine/1/2NS 25,000 UNIT/250 ML IV.SOLN 24.6 UNIT IVCONT (19:20)
[2025-06-30 20:00] VITALS: BP 140/90; PULSE 90; RESP 18; O2SAT 96
[2025-06-30] MEDS: Milk of Magnesia 30 ML ORAL.SUSP PO (20:37)
[2025-06-30 20:58] VITALS: TEMP 36.2
[2025-07-01] VITALS (10 sets, daily range): BP systolic 116–136; BP diastolic 70–84; PULSE 59–87; RESP 16–18; TEMP 36–37; O2SAT 97–98
--- NOTE | 2025-07-01 00:55 | PM.EVENT ---
Event Note Date of Service: 07/01/25 Event Note: Nurse reported that patient is refusing blood draw for obtaining PTT as he is on heparin drip. Will transition to therapeutic Lovenox Time Spent With Patient Time: Total time managing care of this patient today ____ minutes.
[2025-07-01] MEDS: 0.9 % Sodium Chloride Flush 3 ML SYRINGE IVFLUSH ×3 (00:58→15:40)
--- NOTE | 2025-07-01 01:32 | PC.NURSE ---
PTT HD due at 2300, park interpretive ranger informed me that she could only get small amount of blood in tube as patient is a difficult stick. She is the only park interpretive ranger on for the night per the park interpretive ranger. Sample was rejected by lab and patient would not let that particular staff member reattempt at this time. notified via [employer], and Heparin gtt discontinued. Lovenox injection given as ordered.
[2025-07-01] MEDS: methADONE HCl 20 MG/2 ML ORAL.CONC 85 MG PO (08:05)
[2025-07-01 08:53] LABS: Anion Gap 12 (12-20); Blood Urea Nitrogen 16 mg/dL (9-16); Calcium 8.1 mg/dL (8.4-10.2); Carbon Dioxide 23 mmol/L (22-29); Chloride 100 mmol/L (96-108); Creatinine Clr Calc Pharmacy 166.8; Estimated Glomerular Filt Rate > 60; Potassium 5.5 mmol/L (3.3-5.1); Sodium 129 mmol/L (135-145)
--- NOTE | 2025-07-01 09:15 | P.EN_ITS ---
Event Note Date of Service: 07/04/25 Event Note: Events noted Chart reviewed Hyponatremia/Hyperkalemia Restrict free water intake to 1.2L [facility] Check renal sonogram Full consult to follow Time Spent With Patient Time: Total time managing care of this patient today ____ minutes.
--- NOTE | 2025-07-01 11:21 | P.PNIM_ITS ---
Subjective Subjective Date of Service: 07/01/25 Interval History: dvt, strep bactermia Review of Systems denies new c/o leg pain/swelling improving Review of Systems: Yes all other systems are reviewed and are negative Physical Exam 2 Exam: Exam: General: AO X 3, no acute distress, ill appearing Resp: air entry fair , no rales or wheezing CVS: S1,S2,RRR GI: soft, non tender, non distended Neuro: motor grossly intact, alert LLE 3+ edema Vital Signs: Vital Signs: Last Vital Signs Temp 96.8 F 07/01/25 08:00 Pulse 76 07/01/25 08:00 Resp 16 07/01/25 08:00 BP 121/82 07/01/25 08:00 Pulse Ox 98 07/01/25 08:00 O2 Del Method Room Air 07/01/25 08:00 BMI result Body Mass Index 19.4 Objective Data Active Medications Acetaminophen (Acetaminophen 325 Mg Tablet) 650 mg PO Q6H PRN PRN Reason: Pain, Mild 1-3,fever,headache Calcium Carbonate (Calcium Carbonate 750 Mg Tab.Chew) 750 mg PO Q4H PRN PRN Reason: Heartburn Ceftriaxone Sodium (Ceftriaxone Sodium 2 Gm Vial) 2 gm IVPUSH Q24H [facility] Last Admin: 06/30/25 16:27 Dose: 2 gm Documented By: FEDE Enoxaparin Sodium (Enoxaparin Sodium 60 Mg/0.6 Ml Syringe) 60 mg SUBCUT Q12H [facility] Last Admin: 07/01/25 01:28 Dose: 60 mg Documented By: JESSICA Hydromorphone HCl (Hydromorphone Hcl 1 Mg/Ml Syringe) 1 mg IVPUSH Q4H PRN; Protocol PRN Reason: Pain, Severe (Pain Scale 7-10) Last Admin: 07/01/25 06:14 Dose: 1 mg Documented By: JESSICA Clindamycin Phosphate (Cleocin) 900 mg in 50 mls @ 50 mls/hr IV Q8H [facility] Last Infusion: 07/01/25 09:24 Dose: Infused Documented By: ROBERTA Magnesium Hydroxide (Milk Of Magnesia 30 Ml Oral.Susp) 30 ml PO DAILY PRN PRN Reason: Constipation Last Admin: 06/30/25 20:37 Dose: 30 ml Documented By: HO.KUDRYAD Melatonin (Melatonin 3 Mg Tablet) 6 mg PO BEDTIME PRN PRN Reason: Insomnia Methadone HCl (Methadone Hcl 20 Mg/2 Ml Oral.Conc) 85 mg PO DAILY@0800 [facility] Last Admin: 07/01/25 08:05 Dose: 85 mg Documented By: ROBERTA Co-signed By: CINDY Ondansetron HCl (Ondansetron Hcl 4 Mg/2 Ml Vial) 4 mg IVPUSH Q8H PRN PRN Reason: Nausea and Vomiting Last Admin: 06/29/25 06:32 Dose: 4 mg Documented By: JOHN Sodium Chloride (0.9 % Sodium Chloride Flush 3 Ml Syringe) 3 ml IVFLUSH QSHIFT [facility] Last Admin: 07/01/25 08:01 Dose: 3 ml Documented By: ROBERTA Labs 06/30/25 08:09 07/01/25 07:37 Labs: Laboratory Results - last 24 hr 06/30/25 06/30/25 06/30/25 17:03 17:35 23:30 aPTT Heparin Protocol 70.7 D Cancelled Anion Gap Estim Creat Clear Calc Estimated GFR Random Glucose Osmolality 282 Calcium Urine Osmolality 536 Ur Random Sodium 149.0 Ur Random Potassium 18.8 Ur Random Chloride 97.0 07/01/25 07:37 aPTT Heparin Protocol Anion Gap 12 Estim Creat Clear Calc 166.8 Estimated GFR > 60 Random Glucose 82 Osmolality Calcium 8.1 L Urine Osmolality Ur Random Sodium Ur Random Potassium Ur Random Chloride Microbiology Microbiology Results: Microbiology 06/29/25 10:15 Blood Culture - Preliminary Blood - Venous No growth after 24 hours. 06/28/25 10:08 Blood Culture - Preliminary Blood - Venous No growth after 48 hours. Assessment and Plan (1) DVT (deep venous thrombosis): Status: Acute (2) Leg edema, left: Status: Acute (3) Sepsis: Status: Acute Plan 40M PMH ivda, polysubstance dependence, presented with left lower extremity swelling and fevers Sepsis (not severe), due to left lower extremity cellulitis and strep pyogenous bacteremia in due to IV drug use repeat blood cultures -negative @24-48hrs leucocytosis slowly trending up surgery following - No apparent drainable abscess,Significant edema likely combination of DVT, soft tissue inflammation from IV drug abuse. echo:The left ventricular systolic function is mildly decreased. The calculated ejection fraction is 45% by biplane method. The basal inferior segment is hypokinetic. No obvious valvular pathology seen on this study. plan:leg elevation ,switched to iv ceftriaxone and clindamycin per id,pain control with iv dilaudid. mild acute hyponratemia euvolemic: urine osm>serum osm fluid restrictions added tsh and cortisol levels. moniter bmp . acute hyperkalemia: Added p.o. Lokelma,low potassium diet nephro eval noted-added renal sono. Acute left lower extremity DVT of common femoral, deep femoral, popliteal vein on AC Vascular evalpending Polysubstance dependence:Addiction eval noted. Full code reason for continued hospitalization:cultures, hyponatremia hyperkalemia, bacteremia-need renal function electrolyte monitoring, also need likely PICC line for antibiotics, vascular input. Quality Stroke Does the patient have a stroke diagnosis?: No VTE Prior VTE?: No VTE Risk Level:: Medical - moderate - high VTE Device Contraindication: Treatment Not Indicated VTE Drug Contraindication: N/A - Med Ordered
[2025-07-01 12:15] LABS: Thyroid Stimulating Hormone 0.67 uIU/mL (0.32-4.0)
--- NOTE | 2025-07-01 14:16 | MHC.RECOVRN ---
Met with pt. in 375-1 to f/u and offer support. Pt resting comfortably in bed. No reports of pain management issues. Reports current methadone dose effective. Pt reports that he will find out Mon about next steps. No further expressed needs at this time. ACS to continue to follow and offer support while admitted.
[2025-07-01 15:27] LABS: Hematocrit 31.2 % (42.0-52.0); Hemoglobin 9.9 g/dl (14.0-18.0); Mean Corpuscular HGB Conc 31.7 g/dl (31.0-36.0); Mean Corpuscular Hemoglobin 25.4 pg (27.0-33.0); Mean Corpuscular Volume 80.2 fL (80.0-98.0); NRBC Abs Auto 0.000 X10*3/uL (0.0-0.012); NRBC Pct Auto 0.0 /100WBC (0.0-0.2); PLT CLUMP 1; Red Blood Count 3.89 X10*6/uL (4.60-5.80)
[2025-07-01 15:28] LABS: White Blood Count 20.6 X10*3/uL (4.8-10.8)
[2025-07-01 18:18] LABS: Potassium 5.6 mmol/L (3.3-5.1)
[2025-07-01 22:40] LABS: Glucose, Whole Blood 122 mg/dL (60-115)
[2025-07-01] MEDS: Calcium Gluconate/NaCl,Iso-Osm 2 GM/100 ML PLAST..BAG IV (22:41)
[2025-07-02] VITALS (10 sets, daily range): BP systolic 110–117; BP diastolic 67–84; PULSE 66–84; RESP 16–18; TEMP 36.1–36.6; O2SAT 96–97
[2025-07-02] MEDS: 0.9 % Sodium Chloride Flush 3 ML SYRINGE IVFLUSH ×4 (01:15→23:35)
[2025-07-02] MEDS: methADONE HCl 20 MG/2 ML ORAL.CONC 85 MG PO (08:35)
--- NOTE | 2025-07-02 10:39 | P.PNIM_ITS ---
Subjective Subjective Date of Service: 07/02/25 Interval History: dvt, strep bactermia Review of Systems leg pain/swelling no fever . Review of Systems: Yes all other systems are reviewed and are negative Physical Exam 2 Exam: Exam: General: AO X 3, no acute distress, ill appearing Resp: air entry fair , no rales or wheezing CVS: S1,S2,RRR GI: soft, non tender, non distended Neuro: motor grossly intact, alert LLE 3+ chong Vital Signs: Vital Signs: Last Vital Signs Temp 96.9 F 07/02/25 07:50 Pulse 83 07/02/25 07:50 Resp 16 07/02/25 07:50 BP 117/80 07/02/25 07:50 Pulse Ox 97 07/02/25 07:50 O2 Del Method Room Air 07/02/25 07:50 BMI result Body Mass Index 19.4 Objective Data Active Medications Acetaminophen (Acetaminophen 325 Mg Tablet) 650 mg PO Q6H PRN PRN Reason: Pain, Mild 1-3,fever,headache Last Admin: 07/02/25 08:37 Dose: 650 mg Documented By: ROBERTA Calcium Carbonate (Calcium Carbonate 750 Mg Tab.Chew) 750 mg PO Q4H PRN PRN Reason: Heartburn Ceftriaxone Sodium (Ceftriaxone Sodium 2 Gm Vial) 2 gm IVPUSH Q24H [facility] Last Admin: 07/01/25 16:59 Dose: 2 gm Documented By: ROBERTA Enoxaparin Sodium (Enoxaparin Sodium 60 Mg/0.6 Ml Syringe) 60 mg SUBCUT Q12H [facility] Last Admin: 07/02/25 00:55 Dose: 60 mg Documented By: JESSICA Hydromorphone HCl (Hydromorphone Hcl 1 Mg/Ml Syringe) 1 mg IVPUSH Q4H PRN; Protocol PRN Reason: Pain, Severe (Pain Scale 7-10) Last Admin: 07/02/25 06:50 Dose: 1 mg Documented By: JESSICA Clindamycin Phosphate (Cleocin) 900 mg in 50 mls @ 50 mls/hr IV Q8H [facility] Last Infusion: 07/02/25 10:14 Dose: Infused Documented By: ROBERTA Magnesium Hydroxide (Milk Of Magnesia 30 Ml Oral.Susp) 30 ml PO DAILY PRN PRN Reason: Constipation Last Admin: 06/30/25 20:37 Dose: 30 ml Documented By: BRYNN Melatonin (Melatonin 3 Mg Tablet) 6 mg PO BEDTIME PRN PRN Reason: Insomnia Methadone HCl (Methadone Hcl 20 Mg/2 Ml Oral.Conc) 85 mg PO DAILY@0800 [facility] Last Admin: 07/02/25 08:35 Dose: 85 mg Documented By: ROBERTA Co-signed By: NIELS Ondansetron HCl (Ondansetron Hcl 4 Mg/2 Ml Vial) 4 mg IVPUSH Q8H PRN PRN Reason: Nausea and Vomiting Last Admin: 06/29/25 06:32 Dose: 4 mg Documented By: JOHN Sodium Chloride (0.9 % Sodium Chloride Flush 3 Ml Syringe) 3 ml IVFLUSH QSHIFT [facility] Last Admin: 07/02/25 08:48 Dose: 3 ml Documented By: ROBERTA Labs 07/01/25 15:18 07/01/25 17:54 Labs: Laboratory Results - last 24 hr 07/01/25 07/01/25 07/01/25 07:37 15:18 17:03 MCV 80.2 MCH 25.4 L MCHC 31.7 RDW 15.9 Plt Count TNP MPV TNP Absolute Nucleated RBC 0.000 Nucleated RBC % (auto) 0.0 POC Glucose TSH 0.67 Random Cortisol 13.7 07/01/25 22:34 MCV MCH MCHC RDW Plt Count MPV Absolute Nucleated RBC Nucleated RBC % (auto) POC Glucose 122 H TSH Random Cortisol Microbiology Microbiology Results: Microbiology 06/29/25 10:15 Blood Culture - Preliminary Blood - Venous No growth after 48 hours. Assessment and Plan (1) DVT (deep venous thrombosis): Status: Acute (2) Leg edema, left: Status: Acute (3) Sepsis: Status: Acute Plan 40M PMH ivda, polysubstance dependence, presented with left lower extremity swelling and fevers Sepsis (not severe), due to left lower extremity cellulitis and strep pyogenous bacteremia in due to IV drug use repeat blood cultures -negative @24-48hrs leucocytosis slowly trending up surgery following - No apparent drainable abscess,Significant edema likely combination of DVT, soft tissue inflammation from IV drug abuse. echo:The left ventricular systolic function is mildly decreased. The calculated ejection fraction is 45% by biplane method. The basal inferior segment is hypokinetic. No obvious valvular pathology seen on this study. plan:leg elevation ,switched to iv ceftriaxone and off clindamycin now,pain control with iv dilaudid. mild acute hyponratemia euvolemic: urine osm>serum osm fluid restrictions added tsh and cortisol levels. moniter bmp . acute hyperkalemia: Added p.o. Lokelma,low potassium diet nephro eval noted-added renal sono. Acute left lower extremity DVT of common femoral, deep femoral, popliteal vein on AC Vascular evalpending Polysubstance dependence:Addiction eval noted. Full code reason for continued hospitalization:cultures, hyponatremia hyperkalemia, bacteremia-need renal function electrolyte monitoring, also need likely midline for antibiotics, vascular input. Quality Stroke Does the patient have a stroke diagnosis?: No VTE Prior VTE?: No VTE Risk Level:: Medical - moderate - high VTE Device Contraindication: Treatment Not Indicated VTE Drug Contraindication: N/A - Med Ordered
--- NOTE | 2025-07-02 11:26 | PM.PNGS ---
Subjective Subjective Date of Service: 07/02/25 Interval history: No new complaints The patient says his left leg swelling has improved significantly Physical Exam Vital Signs: Vital Signs: Last Vital Signs Temp 96.9 F 07/02/25 07:50 Pulse 83 07/02/25 07:50 Resp 16 07/02/25 07:50 BP 117/80 07/02/25 07:50 Pulse Ox 97 07/02/25 07:50 O2 Del Method Room Air 07/02/25 07:50 BMI result Body Mass Index 19.4 Const: General: comfortable and no acute distress Resp: Effort & Inspection: normal respiratory effort Cardio: Rate: regular rate GI: Palpation (GI): Soft to palpation Extrem: Other: Left leg still edematous but much improved, no cellulitis Objective Data Active Medications Acetaminophen (Acetaminophen 325 Mg Tablet) 650 mg PO Q6H PRN PRN Reason: Pain, Mild 1-3,fever,headache Last Admin: 07/02/25 08:37 Dose: 650 mg Documented By: ROBERTA Calcium Carbonate (Calcium Carbonate 750 Mg Tab.Chew) 750 mg PO Q4H PRN PRN Reason: Heartburn Ceftriaxone Sodium (Ceftriaxone Sodium 2 Gm Vial) 2 gm IVPUSH Q24H [facility] Last Admin: 07/01/25 16:59 Dose: 2 gm Documented By: ROBERTA Enoxaparin Sodium (Enoxaparin Sodium 60 Mg/0.6 Ml Syringe) 60 mg SUBCUT Q12H [facility] Last Admin: 07/02/25 00:55 Dose: 60 mg Documented By: JESSICA Hydromorphone HCl (Hydromorphone Hcl 1 Mg/Ml Syringe) 1 mg IVPUSH Q4H PRN; Protocol PRN Reason: Pain, Severe (Pain Scale 7-10) Last Admin: 07/02/25 06:50 Dose: 1 mg Documented By: JESSICA Magnesium Hydroxide (Milk Of Magnesia 30 Ml Oral.Susp) 30 ml PO DAILY PRN PRN Reason: Constipation Last Admin: 06/30/25 20:37 Dose: 30 ml Documented By: BRYNN Melatonin (Melatonin 3 Mg Tablet) 6 mg PO BEDTIME PRN PRN Reason: Insomnia Methadone HCl (Methadone Hcl 20 Mg/2 Ml Oral.Conc) 85 mg PO DAILY@0800 [facility] Last Admin: 07/02/25 08:35 Dose: 85 mg Documented By: ROBERTA Co-signed By: NIELS Ondansetron HCl (Ondansetron Hcl 4 Mg/2 Ml Vial) 4 mg IVPUSH Q8H PRN PRN Reason: Nausea and Vomiting Last Admin: 06/29/25 06:32 Dose: 4 mg Documented By: JOHN Sodium Chloride (0.9 % Sodium Chloride Flush 3 Ml Syringe) 3 ml IVFLUSH QSHIFT [facility] Last Admin: 07/02/25 08:48 Dose: 3 ml Documented By: ROBERTA Labs 07/01/25 15:18 07/01/25 17:54 Labs: Laboratory Results - last 24 hr 07/01/25 07/01/25 07/01/25 07:37 15:18 17:03 MCV 80.2 MCH 25.4 L MCHC 31.7 RDW 15.9 Plt Count TNP MPV TNP Absolute Nucleated RBC 0.000 Nucleated RBC % (auto) 0.0 Hold Purple Top POC Glucose TSH 0.67 Random Cortisol 13.7 Hold Yellow Top 07/01/25 07/02/25 22:34 10:54 MCV MCH MCHC RDW Plt Count MPV Absolute Nucleated RBC Nucleated RBC % (auto) Hold Purple Top SEE NOTE POC Glucose 122 H TSH Random Cortisol Hold Yellow Top See Note Microbiology Microbiology Results: Microbiology 06/29/25 10:15 Blood Culture - Preliminary Blood - Venous No growth after 48 hours. Procedures Date of Service Date of Service: 07/02/25 Progress Note: A&P Assessment and plan (1) Leg edema, left: Status: Acute Assessment and Plan: Likely from combination of DVT, inflammation from drug injections No drainable abscess Edema has improved significantly On anticoagulation We will inform Dr. Miller of consultation for DVT tomorrow Time Spent With Patient Time: Total time managing care of this patient today ____ minutes. Quality Stroke Does the patient have a stroke diagnosis?: No VTE Prior VTE?: No VTE Risk Level:: Medical - moderate - high VTE Device Contraindication: Treatment Not Indicated VTE Drug Contraindication: N/A - Med Ordered
[2025-07-02 11:39] LABS: Anion Gap 12 (12-20); Blood Urea Nitrogen 19 mg/dL (9-16); Calcium 8.5 mg/dL (8.4-10.2); Carbon Dioxide 25 mmol/L (22-29); Chloride 100 mmol/L (96-108); Creatinine Clr Calc Pharmacy 166.8; Estimated Glomerular Filt Rate > 60; Potassium 4.8 mmol/L (3.3-5.1); Sodium 132 mmol/L (135-145)
--- NOTE | 2025-07-02 14:13 | P.CONGS_ITS ---
History of Present Illness Consult details Consult date: 07/02/25 Reason for consult: other (dvt) Narrative: Very complex 40-year-old gentleman who presented to the emergency room with left lower extremity edema. He does have a history of polysubstance abuse and there was concern of significant swelling of the left lower extremity. Upon workup he was noted to have a left lower extremity DVT. He does have prior history of IV drug abuse. In addition there was evidence of infection with strep noted in blood cultures. He now presents to us for vascular evaluation. Review of Systems 2 Review of Systems: Yes all other systems are reviewed and are negative Constitutional: Constitutional: Reports no additional constitutional complaints ENT: Reports Normal hearing present Cardiovascular: Cardiovascular: Denies chest pain, Denies chest pain at rest, Denies chest pain with activity and Denies pedal edema Respiratory: Respiratory: Denies cough Gastrointestinal: Gastrointestinal: Denies abdominal pain Musculoskeletal: Musculoskeletal: Denies abnormal gait, Denies muscle cramps and Denies radiating pain into limb Integumentary/Breasts: Skin/Breast: Denies skin ulcer and Denies wounds Neurologic: Reports Normal hearing present and Denies abnormal gait Psychiatric: Psychiatric: Reports no additional psychiatric complaints PMFSH Past Medical History Medical History Leg edema, left Polysubstance use disorder Family History Family history: reviewed and not pertinent Social History Social History Housing: Homeless Do you presently have visiting nurse or other home services: No Patient Tobacco Use Status: Current everyday Tobacco user Tobacco use type: Cigarette Second Hand Smoke Exposure: No Substance Use Type: IV Drugs service: Yes Meds Allergies Allergy/AdvReac Type Severity Reaction Status Date / Time sulfamethoxazole (From Allergy Unknown Blister Verified 06/26/25 17:59 Bactrim) trimethoprim (From Bactrim) Allergy Unknown Blister Verified 06/26/25 17:59 Active Medications: Current Medications Acetaminophen (Acetaminophen 325 Mg Tablet) 650 mg PO Q6H PRN PRN Reason: Pain, Mild 1-3,fever,headache Last Admin: 07/02/25 08:37 Dose: 650 mg Calcium Carbonate (Calcium Carbonate 750 Mg Tab.Chew) 750 mg PO Q4H PRN PRN Reason: Heartburn Ceftriaxone Sodium (Ceftriaxone Sodium 2 Gm Vial) 2 gm IVPUSH Q24H [facility] Last Admin: 07/01/25 16:59 Dose: 2 gm Enoxaparin Sodium (Enoxaparin Sodium 60 Mg/0.6 Ml Syringe) 60 mg SUBCUT Q12H [facility] Last Admin: 07/02/25 12:28 Dose: 60 mg Hydromorphone HCl (Hydromorphone Hcl 1 Mg/Ml Syringe) 1 mg IVPUSH Q4H PRN; Protocol PRN Reason: Pain, Severe (Pain Scale 7-10) Last Admin: 07/02/25 12:25 Dose: 1 mg Magnesium Hydroxide (Milk Of Magnesia 30 Ml Oral.Susp) 30 ml PO DAILY PRN PRN Reason: Constipation Last Admin: 06/30/25 20:37 Dose: 30 ml Melatonin (Melatonin 3 Mg Tablet) 6 mg PO BEDTIME PRN PRN Reason: Insomnia Methadone HCl (Methadone Hcl 20 Mg/2 Ml Oral.Conc) 85 mg PO DAILY@0800 [facility] Last Admin: 07/02/25 08:35 Dose: 85 mg Ondansetron HCl (Ondansetron Hcl 4 Mg/2 Ml Vial) 4 mg IVPUSH Q8H PRN PRN Reason: Nausea and Vomiting Last Admin: 06/29/25 06:32 Dose: 4 mg Sodium Chloride (0.9 % Sodium Chloride Flush 3 Ml Syringe) 3 ml IVFLUSH QSHIFT [facility] Last Admin: 07/02/25 08:48 Dose: 3 ml Home Medications ?Medication ?Instructions ?Recorded ?Confirmed ?Last Taken ?Type methadone 10 mg/mL oral 85 mg PO DAILY 06/26/25 080 03/1706/22/25 11:35 History concentrate (Methadone Intensol) Physical Exam 2 Vital Signs: Vital Signs: Last Vital Signs Temp 96.9 F 07/02/25 07:50 Pulse 83 07/02/25 07:50 Resp 18 07/02/25 12:25 BP 117/80 07/02/25 07:50 Pulse Ox 97 07/02/25 07:50 O2 Del Method Room Air 07/02/25 07:50 BMI result Body Mass Index 19.4 Const: General: cooperative, healthy appearing and comfortable O rientation/consciousness: oriented to person, oriented to place and oriented to time HEENT: Head: Yes normal to inspection Neck: Neck: Yes normal visual inspection Carotids: no bruits Chest: Chest palpation & inspection: normal inspection of the chest Resp: Effort & Inspection: normal respiratory effort and able to speak in complete sentences Auscultation: clear to auscultation bilaterally, no crackles, no rales, no rhonchi and no wheezes Cardio: Rate: regular rate Rhythm: regular rhythm Heart sounds: S1 normal heart sound present and S2 normal heart sound present Bruits: no carotid bruits Peripheral pulses: Peripheral pulses 2+ throughout GI: Inspection: Yes normal to inspection Skin: Wounds: no wounds Hair: normal Neuro: General: oriented to person, oriented to place and oriented to time Cranial nerves: Yes CN's II-XII intact bilaterally and Yes Normal hearing present Cognition (Neuro): normal cognition Motor exam (neuro): 5/5 motor strength present throughout Extrem: Other: venous exam: +2 edema General: No clubbing, No cyanosis and No edema Psych: Appearance: grossly normal Mental Status: mental status grossly normal Speech and movement: Normal speech and movement present Results Labs 07/01/25 15:18 07/02/25 10:54 Labs: Abnormal lab results 07/01/25 07/01/25 07/01/25 Range/Units 15:18 17:54 22:34 WBC 20.6 H (4.8-10.8) X10*3/uL RBC 3.89 L (4.60-5.80) X10*6/uL Hgb 9.9 L (14.0-18.0) g/dl Hct 31.2 L (42.0-52.0) % MCH 25.4 L (27.0-33.0) pg Sodium (135-145) mmol/L Potassium 5.6 H (3.3-5.1) mmol/L BUN (9-16) mg/dL POC Glucose 122 H (60-115) mg/dL 07/02/25 Range/Units 10:54 WBC (4.8-10.8) X10*3/uL RBC (4.60-5.80) X10*6/uL Hgb (14.0-18.0) g/dl Hct (42.0-52.0) % MCH (27.0-33.0) pg Sodium 132 L (135-145) mmol/L Potassium (3.3-5.1) mmol/L BUN 19 H (9-16) mg/dL POC Glucose (60-115) mg/dL Short CBC 07/01/25 Range/Units 15:18 WBC 20.6 H (4.8-10.8) X10*3/uL Hgb 9.9 L (14.0-18.0) g/dl Hct 31.2 L (42.0-52.0) % Plt Count TNP BMP 07/01/25 07/02/25 17:54 10:54 Sodium 132 L Potassium 5.6 H 4.8 Chloride 100 Carbon Dioxide 25 BUN 19 H Creatinine 0.52 Calcium 8.5 Urine 06/26/25 Range/Units 18:56 Urine Color Dark Yellow Urine Appearance Clear Urine pH 7.0 (5.0-9.0) Ur Specific [place] 1.025 (1.005-1.025) Urine Protein 30 (1+) H (Neg-Trace) mg/dL Urine Glucose (UA) Negative (Negative) mg/dL All other labs normal. Assessment and Plan (1) DVT (deep venous thrombosis): Qualifiers: DVT location: lower extremity Affected thrombotic vein of extremity: f emoral Chronicity: acute Laterality: left Qualified Code(s): I82.412 - Acute embolism and thrombosis of left femoral vein Status: Acute Plan In short patient has left lower extremity DVT. Concern is that this may be a source and location of injections. He did have some sclerotic and phlebitic veins superficially noted in that left lower extremity. He does have +2 edema and does state that it has significantly improved. I did review the ultrasound it as appear stable. Would recommend oral anticoagulation. Can see us on an as-needed basis. Would have him follow-up with primary care team as an outpatient. Thank you for allowing us to assist in his care. Procedures Date of Service Date of Service: 07/02/25
[2025-07-03 07:26] VITALS: BP 108/54; PULSE 81; RESP 16; TEMP 36.6; O2SAT 97
[2025-07-03] MEDS: methADONE HCl 20 MG/2 ML ORAL.CONC 85 MG PO (07:49)
[2025-07-03 10:45] LABS: Anion Gap 10 (12-20); Blood Urea Nitrogen 20 mg/dL (9-16); Calcium 8.6 mg/dL (8.4-10.2); Carbon Dioxide 27 mmol/L (22-29); Chloride 102 mmol/L (96-108); Creatinine Clr Calc Pharmacy 170.0; Estimated Glomerular Filt Rate > 60; Potassium 4.8 mmol/L (3.3-5.1); Sodium 134 mmol/L (135-145)
--- NOTE | 2025-07-03 10:55 | PM.CNNEP ---
History of Present Illness Reason for Consult Consult date: 07/03/25 Chief Complaint Chief complaint: Leg pain History of Present Illness Narrative: 40 y/o male with a medical history of polysubstance abuse, presented 06/26 with left elg pain and swelling. Reportedly injected cocaine and heroin into his leg, then swelling began and he cut his leg in an attempt to decompress swelling. Has acute DVT of left lower extremity with superimposed cellulitis and sepsis. Nephrology consulted for hyponatremia and ANTHONY urine sodium 149, urine osm 536. Serum sodium 128-134 since admission; today is 134. patient has been on a fluid restriction 1.2L/24 hours. His potassium has been slightly elevated at times, up to 5.6; hemolysis noted with elevated potassium levels. Patient is difficult stick. Patient reports he feels ok at bedside. Hoping to go home. He does not have a PCP but [facility] [place] [facility] a . Review of Systems Constitutional: Reports fatigue Cardiovascular: Denies chest pain, Denies leg edema and Denies dyspnea Respiratory: Denies dyspnea Gastrointestinal: Reports no additional gastrointestinal complaints Genitourinary: Reports no additional male genitourinary complaints Musculoskeletal: Reports no additional musculoskeletal complaints Skin/Breast: Denies rash and Reports wounds (LLE wound ) Endocrine: Reports fatigue PMFSH Past Medical History Medical History Leg edema, left Polysubstance use disorder Family History Family history: reviewed and not pertinent Social History Social History Housing: Homeless Do you presently have visiting nurse or other home services: No Patient Tobacco Use Status: Current everyday Tobacco user Tobacco use type: Cigarette Second Hand Smoke Exposure: No Substance Use Type: IV Drugs service: Yes Meds Allergies Allergy/AdvReac Type Severity Reaction Status Date / Time sulfamethoxazole (From Allergy Unknown Blister Verified 06/26/25 17:59 Bactrim) trimethoprim (From Bactrim) Allergy Unknown Blister Verified 06/26/25 17:59 Active Medications: Current Medications Acetaminophen (Acetaminophen 325 Mg Tablet) 650 mg PO Q6H PRN PRN Reason: Pain, Mild 1-3,fever,headache Last Admin: 07/02/25 08:37 Dose: 650 mg Calcium Carbonate (Calcium Carbonate 750 Mg Tab.Chew) 750 mg PO Q4H PRN PRN Reason: Heartburn Ceftriaxone Sodium (Ceftriaxone Sodium 2 Gm Vial) 2 gm IVPUSH Q24H [facility] Last Admin: 07/02/25 15:52 Dose: 2 gm Enoxaparin Sodium (Enoxaparin Sodium 60 Mg/0.6 Ml Syringe) 60 mg SUBCUT Q12H [facility] Last Admin: 07/03/25 00:06 Dose: 60 mg Hydromorphone HCl (Hydromorphone Hcl 1 Mg/Ml Syringe) 1 mg IVPUSH Q4H PRN; Protocol PRN Reason: Pain, Severe (Pain Scale 7-10) Last Admin: 07/03/25 07:08 Dose: 1 mg Magnesium Hydroxide (Milk Of Magnesia 30 Ml Oral.Susp) 30 ml PO DAILY PRN PRN Reason: Constipation Last Admin: 06/30/25 20:37 Dose: 30 ml Melatonin (Melatonin 3 Mg Tablet) 6 mg PO BEDTIME PRN PRN Reason: Insomnia Methadone HCl (Methadone Hcl 20 Mg/2 Ml Oral.Conc) 85 mg PO DAILY@0800 [facility] Last Admin: 07/03/25 07:49 Dose: 85 mg Ondansetron HCl (Ondansetron Hcl 4 Mg/2 Ml Vial) 4 mg IVPUSH Q8H PRN PRN Reason: Nausea and Vomiting Last Admin: 06/29/25 06:32 Dose: 4 mg Sodium Chloride (0.9 % Sodium Chloride Flush 3 Ml Syringe) 3 ml IVFLUSH QSHIFT [facility] Last Admin: 07/03/25 08:31 Dose: Not Given Home Medications ?Medication ?Instructions ?Recorded ?Confirmed ?Last Taken ?Type methadone 10 mg/mL oral 85 mg PO DAILY 06/26/25 06/26/25 06/22/25 11:35 History concentrate (Methadone Intensol) Physical Exam Vital Signs: Last Vital Signs Temp 97.9 F 07/03/25 07:26 Pulse 81 07/03/25 07:26 Resp 16 07/03/25 07:26 BP 108/54 L 07/03/25 07:26 Pulse Ox 97 07/03/25 07:26 O2 Del Method Room Air 07/03/25 07:26 BMI result Body Mass Index 19.4 Const General: no acute distress, alert and awake Resp Effort & Inspection: normal respiratory effort and able to speak in complete sentences Auscultation: clear to auscultation bilaterally Cardio Rate: regular rate Rhythm: regular rhythm Heart sounds: S1 normal heart sound present and S2 normal heart sound present GI Palpation (GI): Soft to palpation and nontender Skin Rashes: no rashes Wounds: wounds noted Extrem General: Yes edema (no edema of RLE; LLE swelling (wounds, cellulitis, DVT)) Results Lab Results 07/01/25 15:18 07/03/25 10:14 Lab results: Chemistry 07/01/25 07/01/25 07/02/25 07:37 17:54 10:54 Sodium 129 L 132 L Potassium 5.5 H 5.6 H 4.8 Carbon Dioxide 23 25 BUN 16 19 H Creatinine 0.52 0.52 Calcium 8.1 L 8.5 07/03/25 10:14 Sodium 134 L Potassium 4.8 Carbon Dioxide 27 BUN 20 H Creatinine 0.51 Calcium 8.6 Hematology 07/01/25 15:18 WBC 20.6 H Hgb 9.9 L Plt Count TNP Urine Studies 06/30/25 17:35 Urine Osmolality 536 Assessment and Plan (1) Hyponatremia: Status: Acute (2) Hyperkalemia: Status: Acute Plan Hyponatremia likely secondary to inappropriate ADH release in response to significant pain, possibly infection as well serum sodium level is accetpable. Recommend continuing fluid restriction. hyperkalemia- likely pseudohyperkalemia from hemolysis. We will arrange outpatient follow up for monitoring as outpatient. He is ok for discharge from a renal standpoint. Discussed with Dr Treviño. Procedures Date of Service Date of Service: 07/03/25
--- NOTE | 2025-07-03 11:31 | HO.PM.IMPN ---
Subjective Subjective Date of Service: 07/03/25 Interval History: bacteremia generalised weak Review of Systems leg swelling / pain improved signifiacntly Physical Exam Exam: Exam: General: AO X 3, no acute distress, ill appearing Resp: air entry fair , no rales or wheezing CVS: S1,S2,RRR GI: soft, non tender, non distended Neuro: motor grossly intact, alert LLE 2+ chong Vital Signs: Vital Signs: Last Vital Signs Temp 97.9 F 07/03/25 07:26 Pulse 81 07/03/25 07:26 Resp 16 07/03/25 07:26 BP 108/54 L 07/03/25 07:26 Pulse Ox 97 07/03/25 07:26 O2 Del Method Room Air 07/03/25 07:26 BMI result Body Mass Index 19.4 Objective Data Active Medications Acetaminophen (Acetaminophen 325 Mg Tablet) 650 mg PO Q6H PRN PRN Reason: Pain, Mild 1-3,fever,headache Last Admin: 07/02/25 08:37 Dose: 650 mg Documented By: ROBERTA Calcium Carbonate (Calcium Carbonate 750 Mg Tab.Chew) 750 mg PO Q4H PRN PRN Reason: Heartburn Ceftriaxone Sodium (Ceftriaxone Sodium 2 Gm Vial) 2 gm IVPUSH Q24H [facility] Last Admin: 07/02/25 15:52 Dose: 2 gm Documented By: ROBERTA Enoxaparin Sodium (Enoxaparin Sodium 60 Mg/0.6 Ml Syringe) 60 mg SUBCUT Q12H [facility] Last Admin: 07/03/25 00:06 Dose: 60 mg Documented By: JESSICA Hydromorphone HCl (Hydromorphone Hcl 1 Mg/Ml Syringe) 1 mg IVPUSH Q4H PRN; Protocol PRN Reason: Pain, Severe (Pain Scale 7-10) Last Admin: 07/03/25 11:21 Dose: 1 mg Documented By: JERRY Magnesium Hydroxide (Milk Of Magnesia 30 Ml Oral.Susp) 30 ml PO DAILY PRN PRN Reason: Constipation Last Admin: 06/30/25 20:37 Dose: 30 ml Documented By: BRYNN Melatonin (Melatonin 3 Mg Tablet) 6 mg PO BEDTIME PRN PRN Reason: Insomnia Methadone HCl (Methadone Hcl 20 Mg/2 Ml Oral.Conc) 85 mg PO DAILY@0800 [facility] Last Admin: 07/03/25 07:49 Dose: 85 mg Documented By: JERRY Co-signed By: AARON Ondansetron HCl (Ondansetron Hcl 4 Mg/2 Ml Vial) 4 mg IVPUSH Q8H PRN PRN Reason: Nausea and Vomiting Last Admin: 06/29/25 06:32 Dose: 4 mg Documented By: JOHN Sodium Chloride (0.9 % Sodium Chloride Flush 3 Ml Syringe) 3 ml IVFLUSH QSHIFT [facility] Last Admin: 07/03/25 08:31 Dose: Not Given Documented By: JERRY Non-Admin Reason: Previously Administered Labs 07/01/25 15:18 07/03/25 10:14 Labs: Laboratory Results - last 24 hr 07/02/25 07/03/25 10:54 10:14 Anion Gap 12 10 L Estim Creat Clear Calc 166.8 170.0 Estimated GFR > 60 > 60 Random Glucose 106 120 H Calcium 8.5 8.6 Assessment and Plan (1) DVT (deep venous thrombosis): Status: Acute (2) Leg edema, left: Status: Acute (3) Sepsis: Status: Acute Plan 40M PMH ivda, polysubstance dependence, presented with left lower extremity swelling and fevers Sepsis (not severe), due to left lower extremity cellulitis and strep pyogenous bacteremia in due to IV drug use repeat blood cultures -negative @24-48hrs leucocytosis slowly trending up surgery following - No apparent drainable abscess,Significant edema likely combination of DVT, soft tissue inflammation from IV drug abuse. echo:The left ventricular systolic function is mildly decreased. The calculated ejection fraction is 45% by biplane method. The basal inferior segment is hypokinetic. No obvious valvular pathology seen on this study. plan:leg elevation ,switched to iv ceftriaxone and off clindamycin now,pain control with iv dilaudid. d/w cardiology low ef could be due to CMP/drug use -currently asymptomatic,patient need to follow outpatient. d/w Id rec ceftin 500 mg po bid x 2weeks. mild acute hyponratemia euvolemic: urine osm>serum osm fluid restrictions tsh and cortisol levels normal. moniter bmp . acute hyperkalemia: improved with loklema Acute left lower extremity DVT of common femoral, deep femoral, popliteal vein on AC. psa normal Vascular eval-noted ,continue ac , no acute intervention. Polysubstance dependence:on methdone. strongly advised to abstain from rec drug use. Generlaised weak: pt eval. Full code reason for continued hospitalization:awiting placement Quality Stroke Does the patient have a stroke diagnosis?: No VTE Prior VTE?: No VTE Risk Level:: Medical - moderate - high VTE Device Contraindication: Treatment Not Indicated VTE Drug Contraindication: N/A - Med Ordered
--- NOTE | 2025-07-03 12:04 | MHC.CLN ---
F/U DIET=REGULAR, 1200 ML FLUID RESTRICTION. ENSURE TID TO PROVIDE 1050 KCALS, 60 G PROTEIN. QUALIFIES MODERATELY MALNOURISHED IN THE CONTEXT OF SOCIAL/BEHAVIORAL CIRCUMSTANCES. MOST RECENT PO 50-100%. CONTINUE TO FOLLOW FOR PO INTAKE.
--- NOTE | 2025-07-03 12:07 | MHC.CM.PN ---
PT recommending STR. Reviewed w/ patient who agrees w/ plan and accepted a bed at [facility]. [facility] has initiated auth. Guest dosing started - ZULEYKA's emailed to [facility], clinicals faxed to [facility], Ellen @ [facility] is aware. CM will continue to follow.
[2025-07-03 16:00] VITALS: BP 109/72; PULSE 85; RESP 16; TEMP 36.7; O2SAT 97
[2025-07-03] MEDS: 0.9 % Sodium Chloride Flush 3 ML SYRINGE IVFLUSH ×2 (16:49→21:17)
[2025-07-03 23:30] VITALS: BP 109/77; PULSE 94; RESP 16; TEMP 36; O2SAT 96
[2025-07-04 07:52] VITALS: BP 100/60; PULSE 68; RESP 16; TEMP 36.4; O2SAT 98
[2025-07-04] MEDS: methADONE HCl 20 MG/2 ML ORAL.CONC 85 MG PO (08:19)
[2025-07-04] MEDS: 0.9 % Sodium Chloride Flush 3 ML SYRINGE IVFLUSH ×2 (08:26→17:06)
--- NOTE | 2025-07-04 13:21 | PM.DS ---
DS: Providers Provider Date of Service: 07/04/25 Date of admission: 06/26/25 22:17 Date of discharge: 07/04/25 Primary care physician: Odell Physician Consults: 06/26/25 23:21 Addiction Medicine Provider Routine Consulting Provider: Addiction Covering Reason for consultation: Polysubstance use disorder Consult to General Surgery Routine Consulting Provider: [facility] [place] [facility] Reason for consultation: left leg swelling 06/27/25 11:27 Consult to Infectious Diseases Routine Consulting Provider: [facility] [place] [facility] Reason for consultation: ivda, bacteremia 06/28/25 10:23 Consult to Wound Care Routine Reason for consultation: LLE cellulitis/DVTs 06/28/25 14:16 Consult to Vascular Surgery Routine Consulting Provider: Zack Miller Reason for consultation: leg dvt/edema /pain/cellulitus/ivdu Has provider been notified: No 06/30/25 16:55 Consult to Nephrology Routine Consulting Provider: [facility] [place] [facility] Reason for consultation: hyponatremia/hyperkalemia Attending physician on discharge: Franc Norris Discharging clinician: Franc Norris DS: Diagnosis Discharge Diagnosis (1) DVT (deep venous thrombosis): Status: Acute (2) Leg edema, left: Status: Acute (3) Sepsis: Status: Acute DS: Summary Hospital Course Hospital Course: HPI: 40-year-old male with pertinent history of IV polysubstance use disorder who presents to the emergency department for evaluation of left leg pain and swelling. Patient admits he injects cocaine and heroin into his legs. He last used 3 days ago. Patient 1st noticed swelling of left leg 5 days prior to presentation. The swelling has been progressive and associated with pain. States he had a similar swelling of his right lower extremity about 2 weeks ago which self-resolved. He tried to decompress the swelling by making incisions to his left leg. Endorses associated fever and chills. No chest pain, palpitations, shortness of breath, abdominal pain, changes in urinary or bowel habits. In the emergency department, patient was found to be septic with leukocytosis 23.7. Venous duplex with DVT at multiple sites and CT . Hospital course: 40M PMH ivda, polysubstance dependence, presented with left lower extremity swelling and fevers Sepsis (not severe), due to left lower extremity cellulitis and strep pyogenous bacteremia in due to IV drug use repeat blood cultures -negative @24-48hrs leucocytosis slowly trending up surgery following - No apparent drainable abscess,Significant edema likely combination of DVT, soft tissue inflammation from IV drug abuse. echo:The left ventricular systolic function is mildly decreased. The calculated ejection fraction is 45% by biplane method. The basal inferior segment is hypokinetic. No obvious valvular pathology seen on this study. started on leg elevation ,switched to iv ceftriaxone and off clindamycin now,pain control with iv dilaudid. d/w cardiology low ef could be due to CMP/drug use -currently asymptomatic,patient need to follow outpatient. d/w Id rec ceftin 500 mg po bid x 2weeks,also switched to po dialudid. mild acute hyponratemia euvolemic: urine osm>serum osm fluid restrictions tsh and cortisol levels normal. Hyponatremia improved, sodium is 134 range. acute hyperkalemia:? Due to lab hemolysis. improved with loklema. Acute left lower extremity DVT of common femoral, deep femoral, popliteal vein on AC. Please see CT imaging-in imaging section. psa normal Vascular eval-noted ,continue ac , no acute intervention. Polysubstance dependence:on methdone. plan: Fluid restriction around 1.8 L, monitor BMP. Borderline cardiac EF, asymptomatic, this discussed with the Cardiology Dr roach -follow up outpatient(consider outpatient cardiology follow-up per PCP). Complete Ceftin 500 mg p.o. b.i.d. for 14 days. Started on Eliquis 10 mg p.o. b.i.d. for 7 days, then switched to Eliquis 5 mg p.o. b.i.d. afterwards. Consider out patiently hematology workup if needed. Limited Dilaudid supply added, bowel regimen. Above management discussed with the patient in detail length he understand and in agreement with the above plan, time spent 45 minute. All questions answered, staff was present during conversation. patient will benfit from less than 30 days stay. Time Attestation Total time managing care of this patient today: 45 mintues. Discharge Coordination Time (in mins): 45 min Quality: Safe Use of Opioids Does Pt have an Active Cancer Diagnosis on the Problem List?: No Quality: Stroke Does the patient have a stroke diagnosis?: No Physical Exam Exam: Exam: General: AO X 3, no acute distress, ill appearing Resp: air entry fair , no rales or wheezing CVS: S1,S2,RRR GI: soft, non tender, non distended Neuro: motor grossly intact, alert LLE: 1- 2+ chong Vital Signs: Vital Signs: Last Vital Signs Temp 97.6 F 07/04/25 07:52 Pulse 68 07/04/25 07:52 Resp 16 07/04/25 07:52 BP 100/60 07/04/25 07:52 Pulse Ox 98 07/04/25 07:52 O2 Del Method Room Air 07/04/25 07:52 BMI result Body Mass Index 19.4 DS: Data Imaging Chest x-ray: Radiologist's impression: ITS Impressions Renal Ultrasound 07/01/25 12:45 IMPRESSION: Unremarkable renal ultrasound. ct leg leg/conrats: Subcutaneous edema is unchanged from prior study.Heterogeneous intramuscular edema noted in the calf. Findings are not further assessable by CT.Intramuscular abnormalities are best assessed with MRI.Deep enter edema and enhancement just above and below-knee.Tubular hypodensities along anterior margin of gastrocnemius muscle. Findings are not well assessed on CT.These may represent the deep venous thrombosis on prior ultrasound. Discharge Plan Discharge Anticipated Discharge Date/Time: 07/04/25 13:09 Patient Disposition: er SNF Discharge Diagnosis: sepsis /cellulitis , dvt Referrals: Physician,None [Primary Care Provider, Medical] - 1 Week Discharge Medications: New Eliquis 5 mg Tablet 10 mg PO BID Qty: 90 0RF Rx Instructions: eliquis 10 mg(2 tabs) po bid until 07/11/25 then switch to eliquis 5 mg (1 tab) po bid (on 07/12/25). hydromorphone [Dilaudid] 2 mg tablet 1 mg PO Q6H PRN (Reason: pain) Qty: 7 0RF Rx Instructions: Partial Fill upon patient request. docusate sodium [Colace] 100 mg capsule 100 mg PO BID PRN (Reason: constipation) Qty: 30 0RF polyethylene glycol 3350 [Miralax] 17 gram/dose powder 17 g PO DAILY PRN (Reason: constipation) Qty: 119 0RF hydromorphone [Dilaudid] 2 mg tablet 1 mg PO Q6H PRN (Reason: pain) Qty: 7 0RF Rx Instructions: Partial Fill upon patient request. Continued methadone [Methadone Intensol] 10 mg/mL Concentrate 85 mg PO DAILY cephalexin 500 mg capsule 500 mg PO Q6H 7 Days Qty: 28 0RF Discharge Orders: Discharge Order (Routine); Ordered 07/04/25 Ordered By: Franc Norris Diet: Advance to usual diet Activity on Discharge: As tolerated Stand Alone Forms: Patient Portal Discharge page Print Language: Kazakh Care Plan Goals: as above. Health Concerns: Complete Ceftin 500 mg p.o. b.i.d. for 14 days. Started on Eliquis 10 mg p.o. b.i.d. for 7 days, then switched to Eliquis 5 mg p.o. b.i.d. afterwards. Consider out patiently hematology workup if needed. Limited Dilaudid supply added, bowel regimen. Plan of Treatment: As above. Assessment: As above.
--- NOTE | 2025-07-04 14:48 | P.PNIM_ITS ---
Subjective Subjective Date of Service: 07/04/25 Interval History: bacteremia generalised weak Review of Systems leg swelling / pain improved signifiacntly Review of Systems: Yes all other systems are reviewed and are negative Physical Exam 2 Exam: Exam: General: AO X 3, no acute distress, ill appearing Resp: air entry fair , no rales or wheezing CVS: S1,S2,RRR GI: soft, non tender, non distended Neuro: motor grossly intact, alert LLE 2+ edema Vital Signs: Vital Signs: Last Vital Signs Temp 97.6 F 07/04/25 07:52 Pulse 68 07/04/25 07:52 Resp 16 07/04/25 07:52 BP 100/60 07/04/25 07:52 Pulse Ox 98 07/04/25 07:52 O2 Del Method Room Air 07/04/25 07:52 BMI result Body Mass Index 19.4 Objective Data Active Medications Acetaminophen (Acetaminophen 325 Mg Tablet) 650 mg PO Q6H PRN PRN Reason: Pain, Mild 1-3,fever,headache Last Admin: 07/02/25 08:37 Dose: 650 mg Documented By: ROBERTA Apixaban (Apixaban 5 Mg Tablet) 10 mg PO BID [facility] Stop: 07/11/25 09:01 Calcium Carbonate (Calcium Carbonate 750 Mg Tab.Chew) 750 mg PO Q4H PRN PRN Reason: Heartburn Cefuroxime Axetil (Cefuroxime Axetil 500 Mg Tablet) 500 mg PO Q12H [facility] Last Admin: 07/04/25 11:25 Dose: 500 mg Documented By: DESTINI Hydromorphone HCl (Hydromorphone Hcl 0.5 Mg/0.5 Ml Syringe) 0.5 mg IVPUSH Q4H PRN; Protocol PRN Reason: Pain, Severe (Pain Scale 7-10) Last Admin: 07/04/25 08:25 Dose: 0.5 mg Documented By: DESTINI Magnesium Hydroxide (Milk Of Magnesia 30 Ml Oral.Susp) 30 ml PO DAILY PRN PRN Reason: Constipation Last Admin: 06/30/25 20:37 Dose: 30 ml Documented By: BRYNN Melatonin (Melatonin 3 Mg Tablet) 6 mg PO BEDTIME PRN PRN Reason: Insomnia Methadone HCl (Methadone Hcl 20 Mg/2 Ml Oral.Conc) 85 mg PO DAILY@0800 [facility] Last Admin: 07/04/25 08:19 Dose: 85 mg Documented By: DESTINI Co-signed By: JERRY Ondansetron HCl (Ondansetron Hcl 4 Mg/2 Ml Vial) 4 mg IVPUSH Q8H PRN PRN Reason: Nausea and Vomiting Last Admin: 06/29/25 06:32 Dose: 4 mg Documented By: JOHN Sodium Chloride (0.9 % Sodium Chloride Flush 3 Ml Syringe) 3 ml IVFLUSH QSHIFT [facility] Last Admin: 07/04/25 08:26 Dose: 3 ml Documented By: DESTINI Labs 07/01/25 15:18 07/03/25 10:14 Microbiology Microbiology Results: Microbiology 06/29/25 10:15 Blood Culture - Final Blood - Venous No growth after 5 days. 06/28/25 10:08 Blood Culture - Final Blood - Venous No growth after 5 days. Assessment and Plan (1) DVT (deep venous thrombosis): Status: Acute (2) Leg edema, left: Status: Acute (3) Sepsis: Status: Acute Plan 40M PMH ivda, polysubstance dependence, presented with left lower extremity swelling and fevers Sepsis (not severe), due to left lower extremity cellulitis and strep pyogenous bacteremia in due to IV drug use repeat blood cultures -negative @24-48hrs leucocytosis slowly trending up surgery following - No apparent drainable abscess,Significant edema likely combination of DVT, soft tissue inflammation from IV drug abuse. echo:The left ventricular systolic function is mildly decreased. The calculated ejection fraction is 45% by biplane method. The basal inferior segment is hypokinetic. No obvious valvular pathology seen on this study. plan:leg elevation ,switched to iv ceftriaxone and off clindamycin now,pain control with iv dilaudid. d/w cardiology low ef could be due to CMP/drug use -currently asymptomatic,patient need to follow outpatient. d/w Id rec ceftin 500 mg po bid x 2weeks. mild acute hyponratemia euvolemic: urine osm>serum osm fluid restrictions tsh and cortisol levels normal. moniter bmp . acute hyperkalemia: improved with loklema Acute left lower extremity DVT of common femoral, deep femoral, popliteal vein on AC. psa normal Vascular eval-noted ,continue ac , no acute intervention. Polysubstance dependence:on methdone. strongly advised to abstain from rec drug use. Generlaised weak: pt eval. Full code reason for continued hospitalization:awiting placement Quality Stroke Does the patient have a stroke diagnosis?: No VTE Prior VTE?: No VTE Risk Level:: Medical - moderate - high VTE Device Contraindication: Treatment Not Indicated VTE Drug Contraindication: N/A - Med Ordered
--- NOTE | 2025-07-04 15:37 | MHC.CM.PN ---
[facility] auth obtained by [employer]. Methadone guest dosing approved w/ [employer]. BLS transport scheduled for 6pm. Patient, RN, and aware.
[2025-07-04 15:48] VITALS: BP 108/73; PULSE 86; RESP 14; TEMP 36.4; O2SAT 96
[2025-07-04 18:00] VITALS: BP 114/65; PULSE 79; RESP 18; TEMP 36.9; O2SAT 96
== END 2025-07-04 18:10 | disposition skilled nursing facility (03) | DRG 720 ==
LOC: HO.ED 21:22 → HO.EDOVER 22:25 → HO.S3 06-27 14:02
PROVIDERS: Emergency Medicine; Internal Medicine; Nurse Practitioner Psychiatric/Mental Health; Physician Assistant Medical; Admitting Provider Student in an Organized Health Care Education/Training Program; Emergency Provider Emergency Medicine; Visit Provider Internal Medicine
DX: A40.0 Sepsis due to streptococcus, group A (principal); I82.412 Acute embolism and thrombosis of left femoral vein; E87.1 Hypo-osmolality and hyponatremia; L03.116 Cellulitis of left lower limb; F11.20 Opioid dependence, uncomplicated; D50.9 Iron deficiency anemia, unspecified; E86.1 Hypovolemia; E87.5 Hyperkalemia; F19.20 Other psychoactive substance dependence, uncomplicated; I82.432 Acute embolism and thrombosis of left popliteal vein; F17.210 Nicotine dependence, cigarettes, uncomplicated; Z71.6 Tobacco abuse counseling; Z20.822 Contact with and (suspected) exposure to COVID-19; Z79.899 Other long term (current) drug therapy
CPT/HCPCS: 36415; 73590; 73700; 73701; 76775; 80048; 80053; 80202; 80307; 81001; 82436; 82533; 82947; 83540; 83605; 83930; 83935; 84132; 84133; 84153; 84300; 84443; 85007; 85025; 85027; 85610; 85652; 85730; 86140; 86704; 86706; 86709; 86803; 87040; 87147; 87205; 87340; 87389; 87637; 93306; 93971; 97162; 99285; J0131; J0613; J0696; J0736; J1171; J1644; J1650; J2405; J2543; J3374; Q9957; Q9967; S9485

== ENCOUNTER → 2025-06-26 18:53 | Outpatient (BNV) | payer OTHER, SELFPAY | PROVIDERS: Emergency Provider Emergency Medicine; Visit Provider Radiology Diagnostic Radiology | DX: L03.116 Cellulitis of left lower limb (principal) | CPT/HCPCS: 73590; 73700; 73701; 93971 ==

== ENCOUNTER 2025-06-26 22:17 | Outpatient (BNV) | payer OTHER, SELFPAY | END 2025-07-01 12:45 | PROVIDERS: Admitting Provider Student in an Organized Health Care Education/Training Program; Emergency Provider Emergency Medicine; Visit Provider Radiology Diagnostic Radiology | DX: E87.8 Other disorders of electrolyte and fluid balance, not elsewhere classified (principal) | CPT/HCPCS: 76775 ==

== ENCOUNTER 2025-06-26 22:17 | Outpatient (BNV) | payer OTHER, SELFPAY | END 2025-06-28 07:00 | PROVIDERS: Admitting Provider Student in an Organized Health Care Education/Training Program; Emergency Provider Emergency Medicine; Visit Provider Internal Medicine | DX: I51.89 Other ill-defined heart diseases (principal); I51.7 Cardiomegaly | CPT/HCPCS: 93306 ==

== ENCOUNTER → 2025-06-26 22:17 | Outpatient (BNV) | payer OTHER, SELFPAY | PROVIDERS: Admitting Provider Student in an Organized Health Care Education/Training Program; Emergency Provider Emergency Medicine; Visit Provider Physician Assistant Surgical | DX: R60.0 Localized edema (principal) | CPT/HCPCS: 99222; 99232 ==

== ENCOUNTER → 2025-06-26 22:17 | Outpatient (BNV) | payer OTHER, SELFPAY | PROVIDERS: Admitting Provider Student in an Organized Health Care Education/Training Program; Emergency Provider Emergency Medicine; Visit Provider Nurse Practitioner Psychiatric/Mental Health | DX: F11.90 Opioid use, unspecified, uncomplicated (principal) | CPT/HCPCS: 99222 ==

== ENCOUNTER → 2025-06-26 22:17 | Outpatient (BNV) | payer OTHER, SELFPAY | PROVIDERS: Admitting Provider Student in an Organized Health Care Education/Training Program; Emergency Provider Emergency Medicine; Visit Provider Student in an Organized Health Care Education/Training Program | DX: I82.409 Acute embolism and thrombosis of unspecified deep veins of unspecified lower extremity (principal); R60.0 Localized edema; A41.9 Sepsis, unspecified organism | CPT/HCPCS: 99223; 99231; 99232; 99499 ==

== ENCOUNTER → 2025-06-26 22:17 | Outpatient (BNV) | payer OTHER, SELFPAY | PROVIDERS: Admitting Provider Student in an Organized Health Care Education/Training Program; Emergency Provider Emergency Medicine; Visit Provider Internal Medicine | DX: I80.202 Phlebitis and thrombophlebitis of unspecified deep vessels of left lower extremity (principal); A41.9 Sepsis, unspecified organism; F19.90 Other psychoactive substance use, unspecified, uncomplicated; F11.90 Opioid use, unspecified, uncomplicated | CPT/HCPCS: 99232 ==

== ENCOUNTER → 2025-06-26 22:17 | Outpatient (BNV) | payer OTHER, SELFPAY | PROVIDERS: Admitting Provider Student in an Organized Health Care Education/Training Program; Emergency Provider Emergency Medicine; Visit Provider Surgery Vascular Surgery | DX: I82.412 Acute embolism and thrombosis of left femoral vein (principal) | CPT/HCPCS: 99222 ==

== ENCOUNTER → 2025-06-26 22:17 | Outpatient (BNV) | payer OTHER, SELFPAY | PROVIDERS: Admitting Provider Student in an Organized Health Care Education/Training Program; Emergency Provider Emergency Medicine; Visit Provider Nurse Practitioner Family | DX: E87.1 Hypo-osmolality and hyponatremia (principal); E87.5 Hyperkalemia | CPT/HCPCS: 99222 ==

== ENCOUNTER → 2025-11-10 11:21 | Outpatient (BNV) | payer OTHER, SELFPAY | PROVIDERS: Visit Provider Nurse Practitioner Family | DX: Z86.718 Personal history of other venous thrombosis and embolism (principal) | CPT/HCPCS: 99204 ==

== ENCOUNTER 2025-11-10 12:33 | Outpatient (REF) | payer OTHER, SELFPAY ==
--- NOTE | ~2025-11-10 | US_ITS ---
EXAMINATION: US TRIPLEX LOWER EXTREMITY, LEFT CLINICAL INFORMATION: History of DVT left lower extremity. Patient on anticoagulation therapy. COMPARISON: 06/26/2025. TECHNIQUE: Color-flow triplex imaging with spectral analysis and compression Doppler were performed on the left lower extremity. FINDINGS: Respiratory variation, normal compression and augmented flow are demonstrated in the interrogated left common femoral vein, superficial femoral vein, profunda femoral vein, popliteal vein and midcalf peroneal and posterior tibial venous segments and right common femoral vein.. There is no Padron's cyst. US/US venous duplex LE LT IMPRESSION: No acute deep venous thrombosis interrogated veins, left lower extremity. Negative for DVT. Overall resolved.. Electronically signed by: Gerard Pickett MD 11/10/2025 01:02 PM [facility]
== END 2025-11-10 12:34 | disposition home or self-care (01) ==
LOC: HO.US 12:33
PROVIDERS: PCP Nurse Practitioner Family; Visit Provider Nurse Practitioner Family
DX: I82.402 Acute embolism and thrombosis of unspecified deep veins of left lower extremity (principal); Z79.01 Long term (current) use of anticoagulants
CPT/HCPCS: 93971

== ENCOUNTER → 2025-11-10 12:35 | Outpatient (BNV) | payer OTHER, SELFPAY | PROVIDERS: PCP Nurse Practitioner Family; Visit Provider Radiology Diagnostic Radiology | DX: I82.402 Acute embolism and thrombosis of unspecified deep veins of left lower extremity (principal) | CPT/HCPCS: 93971 ==